=== PATIENT | male | born 1950 | race Caucasian/White ===

== ENCOUNTER 2023-10-12 10:11 | Outpatient (OUT) | payer MEDICARE, OTHER, SELFPAY ==
[2023-10-12 10:53] LABS: Basophils Percent Auto 0.6 % (0.2-2.0); Eosinophils Absolute Auto 0.1 10^3/uL (0.0-0.7); Eosinophils Percent Auto 1.4 % (0.9-7.0); Hemoglobin 13.3 g/dL (14.0-18.0); Immature Granulocytes Abs Auto 0.01 10^3/uL (0.00-0.03); Immature Granulocytes Pct Auto 0.2 % (0.0-0.5); Lymphocytes Absolute Auto 1.8 10^3/uL (1.2-3.8); Lymphocytes Percent Auto 36.2 % (20.5-60.0); Mean Corpuscular HGB Conc 33.3 g/dL (29.9-35.2); Mean Corpuscular Hemoglobin 28.3 pg (25.9-34.0); Mean Corpuscular Volume 85.1 fL (80.0-94.0); Mean Platelet Volume 8.7 fL (9.5-13.5); Monocytes Absolute Auto 0.4 10^3/uL (0.3-0.8); Monocytes Percent Auto 7.4 % (1.7-12.0); Neutrophils Absolute Auto 2.6 10^3/uL (1.4-6.5); Neutrophils Percent Auto 54.2 % (43.0-75.0); Platelet Count 251 10^3/uL (150-450); White Blood Count 4.8 10^3/uL (4.0-11.0)
[2023-10-12 11:08] LABS: Alanine Aminotransferase 34 U/L (16-63); Albumin Globulin Ratio 1.1; Albumin Level 3.9 g/dL (3.4-5.0); Alkaline Phosphatase 30 U/L (46-116); Anion Gap 9.3; Aspartate Amino Transferase 29 U/L (15-37); BUN Creatinine Ratio 15.1; Bilirubin Total 0.5 mg/dL (0.2-1.0); Calcium 9.6 mg/dL (8.5-10.1); Carbon Dioxide 25.8 mmol/L (21.0-32.0); Chloride 106 mmol/L (98-107); Cholesterol 170 mg/dL (<=200); Estimated GFR (African America 57 (>=60); Estimated GFR (Non-African Ame 47 (>=60); Globulin 3.4 g/dL; Glucose 98 mg/dL (74-106); HDL Cholesterol 34 mg/dL (40-60); Potassium 4.1 mmol/L (3.5-5.1); Sodium 137 mmol/L (136-145); Total Protein 7.3 g/dL (6.4-8.2); Triglycerides 166 mg/dL (<=150); VLDL CHOLESTEROL 33.2 mg/dL
[2023-10-12 11:45] LABS: Bilirubin Urine NEGATIVE (NEGATIVE); Blood Urine NEGATIVE (NEGATIVE); Clarity Urine CLEAR (CLEAR); Color Urine YELLOW (YELLOW); Glucose Urine UA NEGATIVE (NEGATIVE); Ketones Urine NEGATIVE (NEGATIVE); Leukocyte Esterase Urine NEGATIVE (NEGATIVE); Nitrite Urine NEGATIVE (NEGATIVE); Protein Urine NEGATIVE (NEG/TRACE); Specific Gravity Urine 1.015 (1.005-1.025); Urobilinogen Urine 0.2 EU/dL (0.2-1.0); pH Urine 5.5 (5.0-9.0)
[2023-10-12 11:52] LABS: Prostate Specific Antigen Scrn 3.63 ng/mL (<=4.00)
[2023-10-12 14:45] LABS: Estimated Average Glucose 111 mg/dL; Glycohemoglobin A1C 5.5 % (4.5-6.2)
== END 2023-10-12 10:12 | disposition home or self-care (01) ==
LOC: LAB 10:18
PROVIDERS: PCP Family Medicine; Visit Provider Family Medicine
DX: R35.0 Frequency of micturition (principal); I10 Essential (primary) hypertension; D64.9 Anemia, unspecified; Z12.5 Encounter for screening for malignant neoplasm of prostate; R73.03 Prediabetes; E78.5 Hyperlipidemia, unspecified
CPT/HCPCS: 36415; 80053; 80061; 81003; 83036; 85025; 87086; G0103

== ENCOUNTER 2024-05-07 10:48 | Outpatient (OUT) | payer MEDICARE, OTHER, SELFPAY ==
--- OUTSIDE RECORDS SUMMARY | 2024-05-07 11:04 | XMS_ITS | CCD ---
Author Organization [facility] Care Team Providers Care Airline Lounge Receptionist Name Role Phone DR TALIA PRIETO Admitting Unavailable PRIETO, DR TALIA Jaimes Attending Unavailable PRIETO, DR ATLIA Jaimes Primary Care Unavailable PRIETO, DR TALIA Jaimes Consulting Unavailable APLLATONIA FRENCH Admitting Unavailable APLLATONIA FRENCH Attending Unavailable CONNER, DR TALIA Jaimes Primary Care Unavailable ZIEBISIS, DR OANH Savage Consulting Unavailable APLINGLATONIA Consulting Unavailable PRIETO, DR TALIA Jaimes Admitting Unavailable PRIETO, DR TALIA Jaimes Attending Unavailable CONNER, DR TALIA Jaimes Referring Unavailable PRIETO, DR TALIA Jaimes Primary Care Unavailable PRIETO, DR TALIA Jaimes Consulting Unavailable Monica Horowitz Unavailable Talia Prieto Unavailable MD Talia Prieto Primary Care Provider [phone] MD Joe Portillo Attending Provider Joe Portillo Attending Unavailable Joe Portillo Admitting Unavailable Talia Prieto Primary Care Unavailable TALIA PRIETO Primary Care Physician [phone] GEOVANNA SANTAMARIA Attending Unavailab GEOVANNA Sung Admitting Unavailab GEOVANNA Sung Attending Unavailab TALIA Ordonez Referring Unavailable GEOVANNA SANTAMARIA Admitting Unavailab GEOVANNA Sung Attending UnavailKoffi Bailey Attending Unavailable Koffi GUNTER Referring Unavailable Koffi GUNTER Attending Unavailable Koffi GUNTER Admitting Unavailable Allergies Allergy Classification Reported Allergen(s) Allergy Type Date of Onset Reaction(s) Facility (7 sources) Sulfamethoxazole / Trimethoprim; Translations: [sulfamethoxazole-t rimethoprim] Drug Allergy Ear problem (finding) [facility] (2 sources) Sulfamethoxazole; Translations: [sulfamethoxazole] Drug Allergy 03-16-20 Unknown Reaction [facility] (2 sources) Trimethoprim; Translations: [trimethoprim] Drug Allergy 03-16-20 Unknown Reaction [facility] (2 sources) Allergies Reconciled Propensity to adverse reactions Unknown [employer] Other (2 sources) Sulfamethoxazole / Trimethoprim; Translations: [Bactrim] Drug Allergy [facility] Repository Medications Current Medications Medication Drug Class(es) Dates Sig (Normalized) Sig (Original) Cetirizine (4 sources) Histamine-1 Receptor Antagonist Start: 02-05-2024 cetirizine Start Date: 02/05/24 Status: Ordered Start: 09-11-2017 Cetirizine Act trinidad 10 MG PO As Directed September 11, 2017 1:00am diphenhydrAMINE (3 sources) Histamine-1 Receptor Antagonist [employer] Allergy Active dutasteride 0.5 mg oral capsule (1 source) 5-alpha Reductase Inhibitor Start: 03-11-20 take 1 capsule by mouth once daily dutasteride 0.5 mg Cap 0.5 mg = 1 cap(s), Oral, Daily, # 90 cap(s), Refills(s) 3, Pharmacy: [facility], 182, cm, 02/05/24 10:43:00 EDT, Height/Length Dosing, 102.5, kg, 02/05/24 10:43:00 EDT, Weight Dosing Start Date: 03/11/24 Status: Ordered fenofibrate 160 mg oral tablet (9 sources) Peroxisome Proliferator Receptor alpha Agonist Start: 09-11-19 fenofibrate 160 mg oral tablet Oral, 0 Refill(s), Refills(s) 0 Start Date: 09/11/17 Status: Ordered Fenofibrate Acti ve lisinopril 10 mg oral tablet (9 sources) Angiotensin Converting Enzyme Inhibitor Start: 09-11-2017 lisinopril 10 mg Tab Oral, 0 Refill(s), Refills(s) 0 Start Date: 09/11/17 Status: Ordered Start: 09-11-2017 take 20 mg by mouth once daily Lisinopril Active 20 MG PO Daily September 11, 2017 1:00am Lisinopril Activ e Multivitamin preparation (1 source) Start: 09-11-2017 take 1 tablet by mouth once daily Multivitamin Active 1 TAB PO Daily September 11, 2017 1:00am tamsulosin hydrochloride 0.4 mg oral capsule (5 sources) alpha-Adrenerg ic Christa Start: 03-11-2024 take 1 capsule by mouth twice daily tamsulosin 0.4 mg Cap 0.4 mg = 1 cap(s), Oral, BID, # 180 caplet(s), Refills(s) 3, Pharmacy: [facility], 182, cm, 02/05/24 10:43:00 EDT, Height/Length Dosing, 102.5, kg, 02/05/24 10:43:00 EDT, Weight Dosing Start Date: 03/11/24 Status: Ordered Start: 02-05-2024 tamsulosin 0.4 mg Cap 0.4 mg = 1 cap(s), Oral, Daily, 30 EA, 0 Refill(s), TAKE 1 CAPSULE BY MOUTH DAILY, # 30 cap(s), Refills(s) 11, Pharmacy: [facility], 182, cm, 02/05/24 10:43:00 EDT, Height/Length Dosing, 102.5, kg, 02/05/24 10:43:00 EDT, Weight Dosing Start Date: 02/05/24 Status: Ordered Start: 10-15-2023 take 1 capsule by [facility] every twenty-four hours Flomax 0.4 MG 1 capsule Orally Once a day for 30 day(s) Oct, Active Triglyceride (3 sources) Triglyceride Act trinidad Completed/Discontinued Medications Medication Drug Class(es) Dates Sig (Normalized) Sig (Original) ciprofloxacin 500 mg oral tablet (3 sources) Quinolone Antimicrobial Start: 02-05-2024 take 1 tablet by mouth once daily Cipro 500 mg Tab 500 mg = 1 tab(s), Oral, Daily, take one tab day before procedure and one tab after procedure, # 2 tab(s), Refills(s) 0, Pharmacy: [facility], 182, cm, 02/05/24 10:43:00 EDT, Height/Length Dosing, 102.5, kg, 02/05/24 10:43:00 EDT, Weight Dosing Start Date: 02/05/24 Status: Ordered Problems Active Problems Problem Classification Problem Date Documented Da te Episodic/Chronic Allergic reactions (4 sources) Contact dermatitis; Translations: [Contact dermatitis and other eczema, due to unspecified cause] Onset: 02-11-2014 Episodic Anxiety disorders (2 sources) Acute stress disorder; Translations: [Unspecified acute reaction to stress] Onset: 08-10-2014 Chronic Deficiency and other anemia (4 sources) Anemia, unspecified; Translations: [ANEMIA UNSPECIFIED] Onset: 04-17-2022 Episodic Deficiency and other anemia (2 sources) Anemia; Translations: [Anemia, unspecified] Episodic Disorders of lipid metabolism (8 sources) Pure hyperglyceridemia; Translations: [Pure hyperglyceridemia] Onset: 12-26-2013 Chronic Essential hypertension (8 sources) Essential (primary) hypertension; Translations: [Essential hypertension] Onset: 12-26-2013 01-31-2024 Chronic Genitourinary symptoms and ill-defined conditions (1 source) Increased frequency of urination; Translations: [Frequency of micturition] Onset: 02-05-2024 Episodic Glaucoma (2 sources) Glaucoma; Translations: [Unspecified glaucoma] Onset: 06-29-2017 Chronic Hyperplasia of prostate (4 sources) Benign prostatic hypertrophy with outflow obstruction; Translations: [Benign prostatic hyperplasia with lower urinary tract symptoms] Onset: 02-05-2024 Chronic Influenza (1 source) Influenza due to other identified influenza virus with other respiratory manifestations Episodic Joint disorders and dislocations; trauma-related (4 sources) Unspecified internal derangement of left knee; Translations: [UNS INTERNAL DERANGEMENT LEFT KNEE] Onset: 06-28-2021 Chronic Other diseases of kidney and ureters (1 source) Urinary tract obstruction; Translations: [Other obstructive and reflux uropathy] Onset: 03-11-2024 Episodic Other ear and sense organ disorders (2 sources) Sensorineural hearing loss, bilateral; Translations: [Sensorineural hearing loss, bilateral] Onset: 04-03-2018 Chronic Other gastrointestinal disorders (1 source) Occult blood in stools; Translations: [Other fecal abnormalities] 09-11-2017 Episodic Other nutritional; endocrine; and metabolic disorders (2 sources) Simple obesity ; Translations: [Other obesity due to excess calories] Onset: 04-03-2018 Chronic Other nutritional; endocrine; and metabolic disorders (4 sources) Obese class I; Translations: [Body mass index (BMI) 33.0-33.9, adult] Onset: 08-28-2017 Chronic Other nutritional; endocrine; and metabolic disorders (2 sources) Obesity; Translations: [Obesity, unspecified] Onset: 12-26-2013 Chronic Other screening for suspected conditions (not mental disorders or infectious disease) (2 sources) Encounter for screening for malignant neoplasm of prostate; Translations: [Screening for malignant neoplasm done] Onset: 02-16-2022 Episodic Other upper respiratory disease (2 sources) Seasonal allergic rhinitis; Translations: [Other seasonal allergic rhinitis] Onset: 12-26-2013 Chronic Unclassified (1 source) Encounter for screening for malignant neoplasm of colon; Translations: [Encounter for screening for malignant neoplasm of colon] Onset: 03-16-2023 Unclassified (3 sources) Patient encounter status 02-05-2024 Past or Other Problems Problem Classification Problem Date Documented Date Episodic/Chronic Diabetes mellitus without complication (6 sources) Prediabetes; Translations: [Prediabetes] Onset: 02-16-2022 01-31-2024 Episodic Disorders of teeth and jaw (2 sources) Temporomandibular joint disorder; Translations: [Other specified temporomandibular joint disorders] Onset: 05-07-2018 Episodic Other aftercare (2 sources) Long-term current use of drug therapy; Translations: [Other truck terminal manager (current) drug therapy] Onset: 02-04-2015 Episodic Other ear and sense organ disorders (2 sources) Acute otitis externa; Translations: [Other acute otitis externa] Onset: 04-03-2018 Episodic Other liver diseases (2 sources) Elevated levels of transaminase & lactic acid dehydrogenase; Translations: [Nonspecific elevation of levels of transaminase or lactic acid dehydrogenase (LDH)] Onset: 08-28-2017 Episodic Other upper respiratory infections (4 sources) Acute sinusitis; Translations: [Acute sinusitis, unspecified] Onset: 06-30-2014 Episodic Residual codes; unclassified (2 sources) Family history of malignant neoplasm of trachea, bronchus and lung; Translations: [Family history of malignant neoplasm of trachea, bronchus, and lung] Onset: 12-26-2013 Episodic Residual codes; unclassified (2 sources) Family history of diabetes mellitus; Translations: [Family history of diabetes mellitus] Onset: 12-26-2013 Episodic Unclassified (1 source) Cough R05.9 Results Test Name Value Interpretation Reference Range Facility Main OR Intraoperative Recor don 03-11-2024 Main OR Intraoperative Record Main OR Intraoperative Record IntraOp Document Type FTURO Summary Primary Physician: Koffi GUNTER MD Finalized Date/Time: 03/11/24 15:56:06 Pt. Name: HAIDER BLEDSOE Maynor Barlow/Sex: 1950 Male Med Rec #: [id number] Physician: Koffi GUNTER MD Financial #: [id number] Pt. Type: O Room/Bed: / Admit/Disch: 03/11/24 14:44:13 - Institution: Case Times FTURO Entry 1 Patient Times In Room 03/11/24 15:45:00 Out Room 03/11/24 15:54:00 Procedure Times Start 03/11/24 15:49:00 Stop 03/11/24 15:53:00 Anesthesia Times Last Modified By: Eliza Andrade 03/11/24 15:54:34 Case Attendance FTURO Entry 1 Entry 2 Entry 3 Case Attendee Koffi GUNTER MD, Kendall R Burgderfer, Kelsie E Role Performed Surgeon - Primary Scrub - Primary Pan Dumper - Primary Time In 03/11/24 15:45:00 03/11/24 15:45:00 03/11/24 15:45:00 Time Out 03/11/24 15:54:00 03/11/24 15:54:00 03/11/24 15:54:00 Procedure CYSTOSCOPY LOCAL(.) CYSTOSCOPY LOCAL(.) CYSTOSCOPY LOCAL(.) Comments Last Modified By: Eliza Andrade Kelsie E Burgderfer, Kelsie E 03/11/24 15:54:34 03/11/24 15:54:34 03/11/24 15:54:46 Surgical Procedures FTURO Entry 1 Procedure Description Procedure CYSTOSCOPY LOCAL Modifiers . Surgeon Description CYSTOSCOPY LOCAL Primary Procedure Yes Primary Surgeon Koffi GUNTER MD Start 03/11/24 15:49:00 Stop 03/11/24 15:53:00 Anesthesia Type Local Surgical Service Urology Wound Class 2 - Clean-Contaminated Last Modified By: Eliza Andrade 03/11/24 15:54:36 General Case Data FTURO Pre-Care Text: Classifies surgical wound, implements aseptic technique, initiates traffic control Entry 1 Case Information OR URO 1 FT Case Level None Wound Class 2 - Clean-Contaminated Specialty Urology Preop Diagnosis BPH WITH LUTS FREQUENCY Postop Same As Preop Yes Postop Diagnosis BPH WITH LUTS FREQUENCY Outcomes Met? Yes Last Modified By: Eliza Andrade 03/11/24 15:40:52 Post-Care Text: The patient is free from signs and symptoms of infection EU IntraOp - FTURO Pre-Care Text: Implements protective measures prior to operative or invasive procedure, confirms identity before the operative or invasive procedure, verifies operative procedure, surgical site, and laterality Entry 1 EU Perioperative Protocols Procedure(s) CYSTOSCOPY LOCAL(.) Patient Identity Birthday, ID Band Verified (select at Check, Patient least 2): Participation Consents / H and P HandP, Surgery/Procedure Operative Site N/A Verified Consent Marking Verified Surgical Site Yes Laterality Verified n/a Verified Procedure Verified Yes Correct Patient Yes Position Verified Availability Equipment, Medication Time Out JANI ARREDONDO, Koffi Savage, Verified (If Participants Shahram Edwards, Applicable) Eliza Andrade Time Out Complete 03/11/24 15:47:00 Allergies Reviewed? Yes Allergies Reviewed Self/Patient With Body Position Supine Prep Area PENIS Prep Agents Betadine Solution Skin. Condition Unable to Visualize Description N/A Additional None Specimens Comment N/A Specimens Collected Vitals - EU Blood Pressure 155/86 Pulse 87 bpm Respirations 14 br/min SPO2 99 % EBL 0 IandO - EU Total Intake 0 mL Total Output 0 mL Outcomes Met? Yes Last Modified By: Eliza Andrade 03/11/24 15:47:20 Post-Care Text: The patient is free from signs and symptoms of injury caused by extraneous objects Sign Out FTURO Entry 1 Before Patient Leaves OR Nurse verbally Yes Nurse verbally n/a confirms with the confirms with the team the name of team that the procedure(s) instrument, sponge, recorded and needle counts are correct (or N/A) Nurse verbally n/a Nurse verbally Yes confirms with the confirms with the team how the team whether there specimen is labeled are any equipment (including patient problems to be name), if applicable addressed Sign Out Complete 03/11/24 15:53:00 Last Modified By: Eliza Andrade 03/11/24 15:53:09 Case Comments Finalized By: Eliza Andrade Document Signatures Signed By: Eliza Andrade 03/11/24 15:54 Eliza Andrade 03/11/24 15:54 Eliza Andrade 03/11/24 15:56 Normal [facility] Main OR Preoperative Recordo n 03-11-2024 Main OR Preoperative Record Main OR Preoperative Record Holding Area Document Type FTURO Summary Primary Physician: Koffi GUNTER MD Finalized Date/Time: 03/11/24 15:26:16 Pt. Name: RAKAN HAIDER Barlow/Sex: 1950 Male Med Rec #: [id number] Physician: Koffi GUNTER MD Financial #: [id number] Pt. Type: O Room/Bed: / Admit/Disch: 03/11/24 14:44:13 - Institution: Case Times Holding FTURO Pre-Care Text: Verifies consent for planned procedure, identifies individual values and wishes concerning care, includes family members in perioperative teaching Secures patient's records' belongings, and valuables, maintains patient's dignity and privacy, and maintains patient confidentiality Entry 1 In Holding 03/11/24 15:19:00 Outcomes Met? Yes Last Modified By: MARCELINA Richards RN, Ruthann 03/11/24 15:19:41 Post-Care Text: The patient participates in decisions affecting his or her perioperative plan of care The patient's right to privacy is maintained Surgery Checklist FTURO Entry 1 Patient Birthday, ID Band Procedure History and Physical, Identification: Check, Patient Verification: Surgical Consent, With Participation Patient NPO after Midnight: n/a Date/Time: 03/11/24 15:19:00 Personal Items clothes Limitations: none Comment: Complaints of Pain: No Skin Integrity Unable to Visualize Vitals - EU Blood Pressure 155/86 Pulse 87 bpm Respirations 14 br/min SPO2 Additional None RN Reviewed Yes Specimens Collected Last Modified By: MARCELINA Richards RN, Ruthann 03/11/24 15:23:11 Finalized By: MARCELINA Richards RN, Ruthann Document Signatures Signed By: MARCELINA Richards RN, Ruthann 03/11/24 15:23 MARCELINA Richards RN, Ruthann 03/11/24 15:26 Normal [facility] Operative Reporton Operative Report Operative Report Patient: HAIDER BLEDSOE Age: 73 years Sex: Male : 1950 Associated Diagnoses: None Author: Koffi GUNTER MD Procedure Operative Information Details: Date/ Time: 03/11/2024 15:57:00. Pre-Op Dx: BPH w/ LUTS - N40.1, Frequency - R35.0, Nocturia - R35.1, Incomplete Bladder Emptying - R39.14. Post-Op Dx: Same. Anesthesia Type: Local. Procedure: Local Cystoscopy. Complications: None. Risks/Benefits/Inform ed Consent: Surgical risks, benefits, details of the procedure have been explained to the patient, Full informed consent has been obtained. Intraoperative Information Prepped: Patient is brought back to the endoscopy suite, Patient is placed in supine position, Patient prepped in the usual fashion with Betadine solution, 2% Xylocaine Jelly is placed per Urethra, After waiting several minutes the Cystoscope is introduced. The Urethra is: Normal. The Prostatic Urethra is: Obstructed, Obstructing coapting lateral lobes.. The Bladder is: Abnormal, Trabeculated (Severe (3), Open diverticuli diffusely. No bladder tumors.). The ureteral orifices: Show efflux of clear urine. Devices Implanted: None. Removal: Cystoscope is removed, The patient tolerated it well. Postoperative Information Discharge: Patient is discharged home with antibiotic coverage, Follow up arranged. He will increase his Flomax to twice daily. Also, we will start dutasteride 0.5 mg daily. Follow-up will be in 4 months for reevaluation.. Normal [facility] Comment on above: Result Comment: Elec tronically Signed By: Koffi GUNTER MD\.br\Date and Time Signed: 03/11/24 15:58 EDT PSA Totalon 02-07-2024 Prostate specific Ag [Mass/Vol] see comment Invalid Interpretation Code 0.1-3.5 [facility] Comment on above: Result Comment: Per Farzana Disla, specimen was incorrectly labeled at [facility] office with patient label Haider Bledsoe. The correct patient is Diony Nguyễn. Diony Nguyễn will be redrawn and re-ordered at a different time. Rakan will be creditied by LARRY 02/07/2024 15:21:21 EDT dc The concentration of PSA determined by different manufacturers can vary due to differences in assay methods and reagent specificity. Values obtained from different assay methods cannot be used interchangeably. The methodology used for this result was chemiluminescence using [employer] Hybritech PSA reagent. The concentration of PSA determined by different manufacturers can vary due to differences in assay methods and reagent specificity. Values obtained from different assay methods cannot be used interchangeably. The methodology used for this result was chemiluminescence using [employer] Access Hybritech PSA reagent. Performed By: #### 1 [id number] #### [facility] [address] [place] [address] PSA Totalon 02-06-2024 Prostate specific Ag [Mass/Vol] 6.6 ng/mL High 0.1-3.5 [facility] Comment on above: Result Comment: The concentration of PSA determined by different manufacturers can vary due to differences in assay methods and reagent specificity. Values obtained from different assay methods cannot be used interchangeably. The methodology used for this result was chemiluminescence using [employer] Access Hybritech PSA reagent. Performed By: #### 1 [id number] #### [facility] [address] [place] [address] Physician Referralon 024 Physician Referral [id number] 1.00TIFF Normal [facility] Screenson 02-06-2024 Screens [id number] .00TIFF Normal [facility] Ambulatory Visit Summaryon 0 02-05-2024 Ambulatory Visit Summary HAIDER BLEDSOE :1950 Visit Date:02/05/2024 Ambulatory Visit Instructions Your Diagnosis Urinary frequency BPH with obstruction/lower urinary tract symptoms Screening PSA (prostate specific antigen) Your Care Team Attending Physician - FATOU SANTAMARIA PA-C Primary Care Physician - TALIA PRIETO MD Referring Physician - TALIA PRIETO MD This Is Your Medications List cetirizine tamsulosin (tamsulosin 0.4 mg Cap) Contact prescribing physician if questions or concerns fenofibrate (fenofibrate 160 mg oral tablet) lisinopril (lisinopril 10 mg Tab) Procedures Performed Colonoscopy. Discharge Vitals Heart Rate (Peripheral) 80 Respiratory Rate 19 Blood Pressure 150/76 Height 182 cm Height 72 in Weight 102.5 kg Weight 225.5 lb BMI 30.94 What to do next You Need to Schedule the Following Appointments Follow Up with FATOU SANTAMARIA PA-C, URL When: Where: [address] [facility] [place] [address] [id number] Medications What When Instructions Unchanged cetirizine Unchanged tamsulosin (tamsulosin 0.4 mg Cap) 30 EA, 0 Refill(s), TAKE 1 CAPSULE BY MOUTH DAILY Unchanged fenofibrate (fenofibrate 160 mg oral tablet) Oral, 0 Refill(s) Contact prescribing physician if questions or concerns Unchanged lisinopril (lisinopril 10 mg Tab) Oral, 0 Refill(s) Contact prescribing physician if questions or concerns Allergies Bactrim (Ear problem) Problems Ongoing - Any problem that you are currently receiving treatment for. BPH with obstruction/lower urinary tract symptoms Essential hypertension Prediabetes Screening PSA (prostate specific antigen) Patient Survey You may receive a survey via text or e-mail asking about your office visit. Please share your experience with us by completing your survey. We appreciate your feedback and thank you for choosing us for your care. Education Materials Cystoscopy Cystoscopy is a procedure that is used to help diagnose and sometimes treat conditions that affect the lower urinary tract. The lower urinary tract includes the bladder and the urethra. The urethra is the tube that drains urine from the bladder. Cystoscopy is done using a thin, tube-shaped instrument with a light and camera at the end (cystoscope). The cystoscope may be hard or flexible, depending on the goal of the procedure. The cystoscope is inserted through the urethra, into the bladder. Cystoscopy may be recommended if you have: ? Urinary tract infections that keep coming back. ? Blood in the urine (hematuria). ? An inability to control when you urinate (urinary incontinence) or an overactive bladder. ? Unusual cells found in a urine sample. ? A blockage in the urethra, such as a urinary stone. ? Painful urination. ? An abnormality in the bladder found during an intravenous pyelogram (IVP) or CT scan. Cystoscopy may also be done to remove a sample of tissue to be examined under a microscope (biopsy). Tell a health care provider about: ? Any allergies you have. ? All medicines you are taking, including vitamins, herbs, eye drops, creams, and evyg-jnm-sibcwug medicines. ? Any problems you or family members have had with anesthetic medicines. ? Any blood disorders you have. ? Any surgeries you have had. ? Any medical conditions you have. ? Whether you are or may be . What are the risks? Generally, this is a safe procedure. However, problems may occur, including: ? Infection. ? Bleeding. ? Allergic reactions to medicines. ? Damage to other structures or organs. What happens before the procedure? Medicines Ask your health care provider about: ? Changing or stopping your regular medicines. This is especially important if you are taking diabetes medicines or blood thinners. ? Taking medicines such as aspirin and ibuprofen. These medicines can thin your blood. Do not take these medicines unless your health care provider tells you to take them. ? Taking mnfk-utb-kwlwrgy medicines, vitamins, herbs, and supplements. Tests You may have an exam or testing, such as: ? X-rays of the bladder, urethra, or kidneys. ? CT scan of the abdomen or pelvis. ? Urine tests to check for signs of infection. General instructions ? Follow instructions from your health care provider about eating or drinking restrictions. ? Ask your health care provider what steps will be taken to help prevent infection. These steps may include: ? Washing skin with a germ-killing soap. ? Taking antibiotic medicine. ? Plan to have a responsible adult take you home from the hospital or clinic. What happens during the procedure? ? You will be given one or more of the following: ? A medicine to help you relax (sedative). ? A medicine to numb the area (local anesthetic). ? The area around the opening of your urethra will b (more content not included)... Normal [facility] CHEMISTRYOrdered By: SYSTEM SYSTEM on 02-05-2024 Prostate specific Ag [Mass/Vol] 6.6 ng/mL High 0.1 - 3.5 ng/mL [employer] Comment on above: Interpretive Data: T he concentration of PSA determined by different manufacturers can vary due to differences in assay methods and reagent specificity. Values obtained from different assay methods cannot be used interchangeably. The methodology used for this result was chemiluminescence using [employer]'s Access Hybritech PSA reagent. Jacek 03-16-2023 L - -------- Specimen: [id number] Received: 03/16/23 Status: GINETTE Hamilton Num: [id number] Spec Type: Surgical Subm Dr: Joe Portillo MD Tissues: A Colon Biopsy (DESC COL POLYP) Procedures: MARCO ANTONIO/Wilfrido Moreira/Kasey L4 -------- Age/ Patient Sex Location Account Attending Physician -------- Haider Bledsoe 72/M [id number] Joe Portillo MD -------- SPEC NUM: [id number] RECD: 03/16/23 STATUS: GINETTE JOHNTyesha NUM: [id number] JAKY: 03/16/23 [facility] DR: Joe Portillo MD ENTERED: 03/16/[address] [facility] [address]: SPEC TYPE: Surgical DEPT: S ENTERED BY: [id number] RECV BY: [id number] ORDERED: HE/2, Gross/Micro L4 ORDERED: HE/2, Gross/Micro L4 Pathological Diagnosis Colon, descending, polyp, biopsy: - Colonic mucosa with focal hyperplastic features. Clinical Information History of colon polyps Gross Description Received in formalin labeled with the patient's name, date of and descending colon polyp is one becerra tissue measuring 0.4 x 0.3 x 0.2 cm. Entirely submitted in one cassette labeled A1. Microscopic Description Two H E slides reviewed. The microscopic examination confirms the diagnosis. CPT Codes 39570 -------- -------- Specimen: [id number] Received: 03/16/23 Status: GINETTE Alfonso Num: [id number] Spec Type: Surgical Subm Dr: Joe Portillo MD Tissues: A Colon Biopsy (DESC COL POLYP) Procedures: HE/2, Gross/Micro L4 -------- Patient: Haider Bledsoe [id number] (Continued) -------- Signed (signature on file) Diony Triplett MD 03/19/23 0936 [facility] COVID + FLU Quick Testingon 08-19-2022 SARS-CoV-2 (COVID-19) RNA MELANIA+probe Ql (Unsp spec) Negative [facility] Other COVID + FLU Quick Testing Positive [facility] Other COVID + FLU Quick Testing Negative [facility] Other CBC AUTO DIFFon 04-17-2022 BASO # 0.0 103/ul Normal 0.0-0.1 [facility] Comment on above: Performed By: #### C BC #### [facility] [address] [address] [address] Orlin Kellogg Basophils/100 WBC (Bld) 0.6 % Normal 0.2-2.0 [facility] Comment on above: Performed By: #### C BC #### [facility] [address] [place], [place] [address] Dr. Orlin Kellogg EO # 0.1 103/ul Normal 0.0-0.7 [facility] Comment on above: Performed By: #### C BC #### [facility] [address] [place] [address] Dr. Orlin Kellogg Eosinophils/100 WBC (Bld) 1.8 % Normal 0.9-7.0 [facility] Comment on above: Performed By: #### C BC #### [facility] [address] [place] [address] Dr. Orlin Kellogg Erythrocyte distribution width (RBC) [Ratio] 13.1 % Normal 11.0-15.0 [facility] Comment on above: Performed By: #### C BC #### [facility] [address] [place] [address] Dr. Orlin Kellogg Hematocrit (Bld) [Volume fraction] 42.2 % Normal 42.0-54.0 [facility] Comment on above: Performed By: #### C BC #### [facility] [address] [place] [address] Dr. Orlin Kellogg Hemoglobin (Bld) [Mass/Vol] 13.9 g/dL Critically low 14.0-18.0 [facility] Comment on above: Performed By: #### C BC #### [facility] [address] [place] [address] Dr. Orlin Kellogg IG # 0.02 10e3/ul Normal 0.00-0.03 [facility] Comment on above: Performed By: #### C BC #### [facility] [address] [place] [address] Dr. Orlin Kellogg IG % 0.4 % Normal 0.0-0.5 [facility] Comment on above: Performed By: #### C BC #### [facility] [address] [place] [address] Dr. Orlin Kellogg LYMPH # 1.6 103/ul Normal 1.2-3.8 [facility] Comment on above: Performed By: #### C BC #### [facility] [address] [place] [address] Dr. Orlin Kellogg Lymphocytes/100 WBC (Bld) 31.6 % Normal 20.5-60.0 [facility] Comment on above: Performed By: #### C BC #### [facility] [address] [place] [address] Dr. Orlin Kellogg MANUAL DIFF REQ NO Normal [facility] Comment on above: Performed By: #### C BC #### [facility] [address] [place] [address] Dr. Orlin Kellogg MCH (RBC) [Entitic mass] 27.7 pg Normal 25.9-34.0 [facility] Comment on above: Performed By: #### C BC #### [facility] [address] [place] [address] Dr. Orlin Kellogg MCHC (RBC) [Mass/Vol] 32.9 g/dL Normal 29.9-35.2 [facility] Comment on above: Performed By: #### C BC #### [facility] [address] [place] [address] Dr. Orlin Kellogg MCV (RBC) [Entitic vol] 84.2 fL Normal 80.0-94.0 [facility] Comment on above: Performed By: #### C BC #### [facility] [address] [place] [address] Dr. Orlin Kellogg MONO # 0.3 103/ul Normal 0.3-0.8 [facility] Comment on above: Performed By: #### C BC #### [facility] [address] [place] [address] Dr. Orlin Kellogg Monocytes/100 WBC (Bld) 5.7 % Normal 1.7-12.0 [facility] Comment on above: Performed By: #### C BC #### [facility] [address] [place] [address] Dr. Orlin Kellogg NEUT # 3.0 103/ul Normal 1.4-6.5 [facility] Comment on above: Performed By: #### C BC #### [facility] [address] [place] [address] Dr. Orlin Kellogg Neutrophils/100 WBC (Bld) 59.9 % Normal 43.0-75.0 [facility] Comment on above: Performed By: #### C BC #### [facility] [address] [place] [address] Dr. Orlin Kellogg Platelet mean volume (Bld) [Entitic vol] 8.4 fL Critically low 9.5-13.5 [facility] Comment on above: Performed By: #### C BC #### [facility] [address] [place] [address] Dr. Orlin Kellogg PLT 278 103/ul Normal 150-450 [facility] Comment on above: Performed By: #### C BC #### [facility] [address] [place] [address] Dr. Orlin Kellogg RBC 5.01 106/ul Normal 4.70-6.10 [facility] Comment on above: Performed By: #### C BC #### [facility] [address] [place] [address] Dr. Orlin Kellogg WBC 4.9 103/ul Normal 4.0-11.0 [facility] Comment on above: Performed By: #### C BC #### [facility] [address] [place] [address] Dr. Orlin Kellogg FERRITINon 04-17-2022 Ferritin [Mass/Vol] 304.0 ng/mL Normal 26.0-388.0 [facility] Comment on above: Performed By: #### V ITB12, FERR #### [facility] [address] [place] [address] Dr. Orlin Kellogg PROF 14(COMP METB)on 022 Albumin [Mass/Vol] 4.4 g/dL Normal 3.4-5.0 [facility] Comment on above: Performed By: #### C MP #### [facility] [address] [place] [address] Dr. Orlin Kellogg Albumin/Globulin [Mass ratio] 1.4 {ratio} Normal [facility] Comment on above: Performed By: #### C MP #### [facility] [address] [place] [address] Dr. Orlin Kellogg ALP [Catalytic activity/Vol] 33 U/L Critically low 46-116 [facility] Comment on above: Performed By: #### C MP #### [facility] [address] [address] [address] Orlin Kellogg ALT [Catalytic activity/Vol] 50 U/L Normal 16-63 [facility] Comment on above: Performed By: #### C MP #### [facility] [address] [address] [address] Orlin Kellogg Anion gap [Moles/Vol] 16.9 mmol/L Normal [facility] Comment on above: Performed By: #### C MP #### [facility] [address] [address] [address] Orlin Kellogg AST [Catalytic activity/Vol] 33 U/L Normal 15-37 [facility] Comment on above: Performed By: #### C MP #### [facility] [address] [place] [address] Dr. Orlin Kellogg Bilirubin [Mass/Vol] 0.3 mg/dL Normal 0.2-1.0 [facility] Comment on above: Performed By: #### C MP #### [facility] [address] [address] [address] Orlin Kellogg Calcium [Mass/Vol] 10.2 mg/dL Critically high 8.5-10.1 [facility] Comment on above: Performed By: #### C MP #### [facility] [address] [place] [address] Dr. Orlin Kellogg Chloride [Moles/Vol] 105 mmol/L Normal 98-107 [facility] Comment on above: Performed By: #### C MP #### [facility] [address] [address] [address] Orlin Kellogg CO2 [Moles/Vol] 22.7 mmol/L Normal 21.0-32.0 [facility] Comment on above: Performed By: #### C MP #### [facility] [address] [place] [address] Dr. Orlin Kellogg Creatinine [Mass/Vol] 1.40 mg/dL Critically high 0.70-1.30 [facility] Comment on above: Performed By: #### C MP #### [facility] [address] [address] [address] Orlin Kellogg EGFR-AF AFGHAN 60 mL/min/1.73m2 Normal >=60 [facility] Comment on above: Performed By: #### C MP #### [facility] [address] [address] [address] Orlin Kellogg EGFR-NON AF AFGHAN 50 mL/min/1.73m2 Critically low >=60 [facility] Comment on above: Performed By: #### C MP #### [facility] [address] [address] [address] Orlin Kellogg Globulin (S) [Mass/Vol] 3.1 g/dL Normal [facility] Comment on above: Performed By: #### C MP #### [facility] [address] [address] [address] Orlin Kellogg Glucose [Mass/Vol] 100 mg/dL Normal 74-106 [facility] Comment on above: Performed By: #### C MP #### [facility] [address] [address] [address] Orlin Kellogg Potassium [Moles/Vol] 4.6 mmol/L Normal 3.5-5.1 [facility] Comment on above: Performed By: #### C MP #### [facility] [address] [address] [address] Orlin Kellogg Protein [Mass/Vol] 7.5 g/dL Normal 6.4-8.2 [facility] Comment on above: Performed By: #### C MP #### [facility] [address] [address] [address] Orlin Kellogg Sodium [Moles/Vol] 140 mmol/L Normal 136-145 [facility] Comment on above: Performed By: #### C MP #### [facility] [address] [address] [address] Orlin Kellogg Urea nitrogen [Mass/Vol] 26.0 mg/dL Critically high 7.0-18.0 [facility] Comment on above: Performed By: #### C MP #### [facility] [address] [place] [address] Dr. Orlin Kellogg Urea nitrogen/Creatinine [Mass ratio] 18.6 mg/mg Normal [facility] Comment on above: Performed By: #### C MP #### [facility] [address] [place] [address] Dr. Orlin Kellogg VITAMIN B12on 04-17-2022 Cobalamin (Vitamin B12) [Mass/Vol] 697.0 pg/mL Normal 193.0-986.0 [facility] Comment on above: Performed By: #### V ITB12, FERR #### [facility] [address] [place] [address] Dr. Orlin Kellogg CBC AUTO DIFFon 02-10-2022 BASO # 0.0 103/ul Normal 0.0-0.1 [facility] Comment on above: Performed By: #### C BC #### [facility] [address] [place] [address] Dr. Orlin Kellogg Basophils/100 WBC (Bld) 0.5 % Normal 0.2-2.0 [facility] Comment on above: Performed By: #### C BC #### [facility] [address] [place] [address] Dr. Orlin Kellogg EO # 0.1 103/ul Normal 0.0-0.7 [facility] Comment on above: Performed By: #### C BC #### [facility] [address] [place] [address] Dr. Orlin Kellogg Eosinophils/100 WBC (Bld) 2.4 % Normal 0.9-7.0 [facility] Comment on above: Performed By: #### C BC #### [facility] [address] [place] [address] Dr. Orlin Kellogg Erythrocyte distribution width (RBC) [Ratio] 13.4 % Normal 11.0-15.0 [facility] Comment on above: Performed By: #### C BC #### [facility] [address] [place] [address] Dr. Orlin Kellogg Hematocrit (Bld) [Volume fraction] 41.0 % Critically low 42.0-54.0 [facility] Comment on above: Performed By: #### C BC #### [facility] [address] [address] [address] Orlin Kellogg Hemoglobin (Bld) [Mass/Vol] 13.8 g/dL Critically low 14.0-18.0 [facility] Comment on above: Performed By: #### C BC #### [facility] [address] [address] [address] Orlin Kellogg IG # 0.01 10e3/ul Normal 0.00-0.03 [facility] Comment on above: Performed By: #### C BC #### [facility] [address] [place] [address] Dr. Orlin Kellogg IG % 0.3 % Normal 0.0-0.5 [facility] Comment on above: Performed By: #### C BC #### [facility] [address] [place] [address] Dr. Orlin Kellogg LYMPH # 1.3 103/ul Normal 1.2-3.8 [facility] Comment on above: Performed By: #### C BC #### [facility] [address] [place] [address] Dr. Orlin Kellogg Lymphocytes/100 WBC (Bld) 35.3 % Normal 20.5-60.0 [facility] Comment on above: Performed By: #### C BC #### [facility] [address] [place] [address] Dr. Orlin Kellogg MANUAL DIFF REQ NO Normal [facility] Comment on above: Performed By: #### C BC #### [facility] [address] [place] [address] Dr. Orlin Kellogg MCH (RBC) [Entitic mass] 28.3 pg Normal 25.9-34.0 [facility] Comment on above: Performed By: #### C BC #### [facility] [address] [place] [address] Dr. Orlin Kellogg MCHC (RBC) [Mass/Vol] 33.7 g/dL Normal 29.9-35.2 [facility] Comment on above: Performed By: #### C BC #### [facility] [address] [address] [address] Orlin Kellogg MCV (RBC) [Entitic vol] 84.0 fL Normal 80.0-94.0 [facility] Comment on above: Performed By: #### C BC #### [facility] [address] [address] [address] Orlin Kellogg MONO # 0.3 103/ul Normal 0.3-0.8 [facility] Comment on above: Performed By: #### C BC #### [facility] [address] [address] [address] Orlin Kellogg Monocytes/100 WBC (Bld) 9.2 % Normal 1.7-12.0 [facility] Comment on above: Performed By: #### C BC #### [facility] [address] [place] [address] Dr. Orlin Kellogg NEUT # 1.9 103/ul Normal 1.4-6.5 [facility] Comment on above: Performed By: #### C BC #### [facility] [address] [place] [address] Dr. Orlin Kellogg Neutrophils/100 WBC (Bld) 52.3 % Normal 43.0-75.0 [facility] Comment on above: Performed By: #### C BC #### [facility] [address] [place] [address] Dr. Orlin Kellogg Platelet mean volume (Bld) [Entitic vol] 8.2 fL Critically low 9.5-13.5 [facility] Comment on above: Performed By: #### C BC #### [facility] [address] [place] [address] Dr. Orlin Kellogg PLT 224 103/ul Normal 150-450 [facility] Comment on above: Performed By: #### C BC #### [facility] [address] [place] [address] Dr. Orlin Kellogg RBC 4.88 106/ul Normal 4.70-6.10 [facility] Comment on above: Performed By: #### C BC #### [facility] [address] [address] [address] Orlin Kellogg WBC 3.7 103/ul Critically low 4.0-11.0 [facility] Comment on above: Performed By: #### C BC #### [facility] [address] [address] [address] Orlin Kellogg GLYCOHEMOGLOBIN A1Con 2021 ADA RECOMMENDATION SEE BELOW Normal [facility] Comment on above: Result Comment: ADA RECOMMENDED LIMIT 4.0 - 6.0 ADA THERAPEUTIC TARGET < 7.0 ACTION SUGGESTED > 7.0 Performed By: #### A 1C #### [facility] [address] [address] [address] Orlin Kellogg Glucose [Mass/Vol] 114 mg/dL Normal [facility] Comment on above: Performed By: #### A 1C #### [facility] [address] [place] [address] Dr. Orlin Kellogg HbA1c (Bld) [Mass fraction] 5.6 % Normal 4.5-6.2 [facility] Comment on above: Performed By: #### A 1C #### [facility] [address] [place] [address] Dr. Orlin Kellogg LIPID PROFILEon 02-10-2022 CHOL-HDL RATIO NORM SEE BELOW Normal [facility] Comment on above: Result Comment: 3.3 - 4.4 LOW RISK 4.4 - 7.1 AVERAGE RISK 7.1 - 11.0 MODERATE RISK >11.0 HIGH RISK Performed By: #### L IPID, CMP #### [facility] [address] [place] [address] Dr. Orlin Kellogg Cholesterol [Mass/Vol] 191 mg/dL Normal <=200 [facility] Comment on above: Performed By: #### L IPID, CMP #### [facility] [address] [place] [address] Dr. Orlin Kellogg Cholesterol in HDL [Mass/Vol] 28 mg/dL Critically low 40-60 [facility] Comment on above: Performed By: #### L IPID, CMP #### [facility] [address] [place] [address] Dr. Orlin Kellogg Cholesterol in LDL [Mass/Vol] 112.0 mg/dL Normal [facility] Comment on above: Performed By: #### L IPID, CMP #### [facility] [address] [address] [address] Orlin Kellogg Cholesterol.total/Ch olesterol in HDL [Mass ratio] 6.8 {ratio} Normal [facility] Comment on above: Performed By: #### L IPID, CMP #### [facility] [address] [address] [address] Orlin Kellogg HDL NORMAL > or = 60 mg/dl - LO W CARDIOVASCULAR RISK <40 mg/dl - HIGH CARDIOVASCULAR RISK Normal [facility] Comment on above: Performed By: #### L IPID, CMP #### [facility] [address] [place] [address] Dr. Orlin Kellogg LDL CALC NORMAL SEE BELOW Normal [facility] Comment on above: Result Comment: <100 mg/dl OPTIMAL 100 - 129 mg/dl NEAR OR ABOVE OPTIMAL 130 - 159 mg/dl BORDERLINE HIGH 160 - 189 mg/dl HIGH >190 mg/dl VERY HIGH Performed By: #### L IPID, CMP #### [facility] [address] [place] [address] Dr. Orlin Kellogg Triglyceride [Mass/Vol] 255 mg/dL Critically high <=150 [facility] Comment on above: Performed By: #### L IPID, CMP #### [facility] [address] [place] [address] Dr. Orlin Kellogg VLDL CALC 51.0 mg/dL Normal [facility] Comment on above: Performed By: #### L IPID, CMP #### [facility] [address] [address] [address] Orlin Kellogg PROF 14(COMP METB)on 022 Albumin [Mass/Vol] 4.2 g/dL Normal 3.4-5.0 [facility] Comment on above: Performed By: #### L IPID, CMP #### [facility] [address] [place] [address] Dr. Orlin Kellogg Albumin/Globulin [Mass ratio] 1.2 {ratio} Normal [facility] Comment on above: Performed By: #### L IPID, CMP #### [facility] [address] [place] [address] Dr. Orlin Kellogg ALP [Catalytic activity/Vol] 32 U/L Critically low 46-116 [facility] Comment on above: Performed By: #### L IPID, CMP #### [facility] [address] [address] [address] Orlin Kellogg ALT [Catalytic activity/Vol] 91 U/L Critically high 16-63 [facility] Comment on above: Performed By: #### L IPID, CMP #### [facility] [address] [place] [address] Dr. Orlin Kellogg Anion gap [Moles/Vol] 13.7 mmol/L Normal [facility] Comment on above: Performed By: #### L IPID, CMP #### [facility] [address] [place] [address] Dr. Orlin Kellogg AST [Catalytic activity/Vol] 61 U/L Critically high 15-37 [facility] Comment on above: Performed By: #### L IPID, CMP #### [facility] [address] [place] [address] Dr. Orlin Kellogg Bilirubin [Mass/Vol] 0.5 mg/dL Normal 0.2-1.0 [facility] Comment on above: Performed By: #### L IPID, CMP #### [facility] [address] [place] [address] Dr. Orlin Kellogg Calcium [Mass/Vol] 10.1 mg/dL Normal 8.5-10.1 [facility] Comment on above: Performed By: #### L IPID, CMP #### [facility] [address] [place] [address] Dr. Orlin Kellogg Chloride [Moles/Vol] 105 mmol/L Normal 98-107 [facility] Comment on above: Performed By: #### L IPID, CMP #### [facility] [address] [place] [address] Dr. Orlin Kellogg CO2 [Moles/Vol] 28.0 mmol/L Normal 21.0-32.0 [facility] Comment on above: Performed By: #### L IPID, CMP #### [facility] [address] [address] [address] Orlin Kellogg Creatinine [Mass/Vol] 1.44 mg/dL Critically high 0.70-1.30 [facility] Comment on above: Performed By: #### L IPID, CMP #### [facility] [address] [address] [address] Orlin Kellogg EGFR-AF AFGHAN 58 mL/min/1.73m2 Critically low >=60 [facility] Comment on above: Performed By: #### L IPID, CMP #### [facility] [address] [place] [address] Dr. Orlin Kellogg EGFR-NON AF AFGHAN 48 mL/min/1.73m2 Critically low >=60 [facility] Comment on above: Performed By: #### L IPID, CMP #### [facility] [address] [place] [address] Dr. Orlin Kellogg Globulin (S) [Mass/Vol] 3.6 g/dL Normal [facility] Comment on above: Performed By: #### L IPID, CMP #### [facility] [address] [place] [address] Dr. Orlin Kellogg Glucose [Mass/Vol] 113 mg/dL Critically high 74-106 [facility] Comment on above: Performed By: #### L IPID, CMP #### [facility] [address] [place] [address] Dr. Orlin Kellogg Potassium [Moles/Vol] 4.7 mmol/L Normal 3.5-5.1 [facility] Comment on above: Performed By: #### L IPID, CMP #### [facility] [address] [place] [address] Dr. Orlin Kellogg Protein [Mass/Vol] 7.8 g/dL Normal 6.4-8.2 [facility] Comment on above: Performed By: #### L IPID, CMP #### [facility] [address] [id number] Orlin Kellogg Sodium [Moles/Vol] 142 mmol/L Normal 136-145 [facility] Comment on above: Performed By: #### L IPID, CMP #### [facility] [address] [address] [address] Orlin Kellogg Urea nitrogen [Mass/Vol] 26.0 mg/dL Critically high 7.0-18.0 [facility] Comment on above: Performed By: #### L IPID, CMP #### [facility] [address] [address] [address] Orlin Kellogg Urea nitrogen/Creatinine [Mass ratio] 18.1 mg/mg Normal [facility] Comment on above: Performed By: #### L IPID, CMP #### [facility] [address] [address] [address] Orlin Kellogg MRI KNEE LT WO CONon 10-19-2 021 MRI KNEE LT WO CON EXAMINATION: MRI KNE E LT WO CON HISTORY: Derangement of knee ; chronic left knee pain COMPARISON: No relevant comparison available. TECHNIQUE: A complete multi-planar MRI was performed. FINDINGS: MEDIAL COMPARTMENT MEDIAL MENISCUS: Large radial tear at the posterior junction with possible undersurface or horizontal tear extending into the posterior horn. Partial extrusion of the meniscus from the joint space. CARTILAGE: No visible defect. BONES: No marrow pathology, fracture, or significant arthropathy. MCL AND MEDIAL CAPSULE: Grade I sprain of the medial collateral ligament. LATERAL COMPARTMENT LATERAL MENISCUS: Suspect small undersurface tear of the posterior junction/posterior horn. CARTILAGE: No visible defect. BONES: No marrow pathology, fracture, or significant arthropathy. LCL/POSTEROLAT COMPLEX: Normal lateral collateral ligament, fascicles, lateral capsule and ligaments. ANTERIOR COMPARTMENT PATELLA: Several foci of mild cortical edema involving the apex and lateral facet of the superior pole. CARTILAGE: Mild cartilage thinning and edema of the lateral facet. TENDONS: Normal. EFFUSION: None. No synovitis or loose bodies. ACL: Normal appearing ligament. PCL: Normal appearing ligament. MENISCOFEMORAL: Normal meniscofemoral ligaments. OTHER: Small Barth's cyst. IMPRESSION: 1. Medial meniscus posterior junction large radial tear possibly extending into undersurface tear and horizontal tear of the posterior horn. 2. Grade 1 sprain of the medial collateral ligament. 3. Artifact versus small undersurface tear of the lateral meniscus posterior junction/horn. 4. 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 5. Small Barth's cyst. Electronically authenticated by: OANH LEBRON Date: 2021-06-28 13:39 Normal [facility] Vital Signs Date Time Vital Sign Value Performing Clinician Facility 02-05-2024 10:23-0400 Blood Pressure Location FATOU SANTAMARIA [facility] 02-05-2024 10:23-0400 Diastolic blood pressure 76 mm[Hg] FATOU SANTAMARIA [facility] 02-05-2024 10:23-0400 Heart rate 80 /min FATOU SANTAMARIA [facility] [facility]24 10:23-0400 Respiratory rate 19 /min FATOU SANTAMARIA [facility] 02-05-2024 10:23-0400 Systolic blood pressure 150 mm[Hg] FATOU SANTAMARIA [facility] 03-16-2023 12:30-0400 Diastolic blood pressure 81 mm[Hg] MD Talia Prieto Work Phone: [facility] 03-16-2023 12:30-0400 Heart rate 61 /min MD Talia Prieto Work Phone: [facility] 03-16-2023 12:30-0400 Respiratory rate 16 /min MD Talia Prieto Work Phone: [facility] 03-16-2023 12:30-0400 SaO2% (BldA) [Mass fraction] 98 % MD Talia Prieto Work Phone: [facility] 03-16-2023 12:30-0400 Systolic blood pressure 147 mm[Hg] MD Talia Prieto Work Phone: [facility] 03-16-2023 12:00-0400 Inhaled oxygen flow rate 5 L/min MD Talia Prieto Work Phone: [facility] 03-16-2023 10:45-0400 Body height 182.88 cm MD Talia Prieto Work Phone: [facility] 03-16-2023 10:45-0400 Body weight 108.86 kg MD Talia Prieto Work Phone: [facility] 08-19-2022 15:40-0500 Body height 182.88 cm Monica Lor Other [employer] Other 08-19-2022 15:40-0500 Body mass index (BMI) [Ratio] 33.9 kg/m2 Monica Lor Other [employer] Other 08-19-2022 15:40-0500 Body temperature 96.2 [degF] Monica Ortegamond Other [employer] Other 08-19-2022 15:40-0500 Body weight 113.4 kg Monica Ortegamond Other [employer] Other 08-19-2022 15:40-0500 Respiratory rate 18 /min Monica Lor Other [employer] Other 08-19-2022 15:40-0500 SaO2% (BldA) [Mass fraction] 96 % Monica Lor Other [employer] Other Encounters Encounter Date Encounter Type Care Provider Facility Start: 07-21-2024 ambulatory Koffi Mendez ty:[facility] Start: 03-11-2024 End: 03-11-2024 ambulatory Koffi GUNTER Facility:[facility] Start: 03-11-2024 End: 03-11-2024 Patient encounter procedure Koffi GUNTER [facility] Start: 02-05-2024 End: 02-06-2024 ambulatory PA-C FATOU SANTAMARIA Facility:[facility] Start: 02-05-2024 End: 02-05-2024 Lab Drop off FATOU SANTAMARIA [facility] Start: 02-05-2024 End: 02-06-2024 ambulatory PA-C FATOU SANTAMARIA Facility:[facility] Start: 02-05-2024 End: 02-05-2024 Patient encounter procedure FATOU E ROSALIO [facility] Start: 10-17-2023 ambulatory PA-C FATOU SANTAMARIA Fac ility[facility] Start: 10-15-2023 End: 10-15-2023 ambulatory Talia Prieto Other [employer] Other Start: 10-15-2023 Telephone [address] Prieto [facility] Start: 05-28-2023 End: 05-28-2023 ambulatory Talia Prieto Other [employer] Other Start: 05-28-2023 [address] Prieto [facility] Start: 03-16-2023 End: 03-16-2023 ambulatory Joe Portillo Facility:[facility] Start: 03-16-2023 End: 03-16-2023 Admission to same day surgery center MD Talia Prieto Work Phone: [facility] Work Phone: Start: 03-16-2023 End: 03-16-2023 ambulatory MD Talia Prieto Work Phone: [facility] Work Phone: Start: 01-17-2023 End: 01-17-2023 ambulatory Talia Prieto Other [employer] Other Start: 01-17-2023 Telephone encounter Talia Prieto [facility] Start: 08-19-2022 End: 08-19-2022 ambulatory Monica Horowitz Other [employer] Other Start: 08-19-2022 Office outpatient ne w 20 minutes Monica Horowitz [facility] [place] Start: 04-18-2022 Problem, abnormal examination Talia Prieto Other [employer] Other Start: 04-17-2022 End: 04-18-[address] TALIA PRIETO Facility:[facility] Start: 02-10-2022 End: 02-11-[address] TALIA PRIETO Facility:[facility] Start: 06-28-2021 End: 06-29-2021 ambulatory LATONIA ISBELL Facility:[facility] Procedures Date Procedure Procedure Detail Performing Clinician Start: 03-16-2023 Colonoscopy MD Talia Prieto Work Phone: Start: 02-10-[address] TALIA PRIETO Comment on above: Performed By: #### [facility] #### [facility] [address] [place] [address] Dr. Orlin Kellogg Start: 08-28-2017 Laboratory test resu lt abnormal Talia Prieto Other Start: 06-29-2017 Screening for malign ant neoplasm of prostate Talia Prieto Other Colonoscopy FATOU SANTAMARIA Screening for malign ant neoplasm of prostate Talia Prieto Other Plan of Treatment Date Care Activity Detail Author Start: 03-16-2023 [facility] Patient Education Colon polyps [facility] Work Phone: Payers Date Payer Category Payer Medicare [id number] 2023 Self-pay [id number] 1960 Medicare [id number] 1959 Private Health Insurance [id number] 1950 Unknown [id number] 2.16.84 [id number] 1950 Unknown [id number] 2.16.84 [id number] 1949 Unknown [id number] 2.16.84 [id number] 1949 Unknown [id number] 2.16.8 [id number] 1949 Unknown [id number] 2.16.8 [id number] 1949 Unknown [id number] 2.16.8 [id number] 1949 Unknown [id number] 2.16.8 [id number] Medicare [id number] 2.1 [id number] Unknown [id number] 2.16.8 [id number] Social History Date Type Detail Facility Unknown if ever smoked [employer] Other Sex Assigned At [facility] Start: 03-16-2023 Tobacco smoking stat us NJIS Never smoked tobacco (finding) [facility] Start: 1950 Sex Assigned At Male F [facility] Start: 02-05-2024 Tobacco smoking status Ex-smoker (fi nding) [facility] Goals Date Patient Goal Desired Activity /State Functional Status Date Assessment Result Facility 02-05-2024 Functional Status N/A [facility] Clinical Notes 08-10-2021 to 03-11-2024 Note Date & Type Note Facility 03-11-2024 Hospital Discharg e instructions Patient Education 03/11/2024 15:56:22 [facility] - Cystoscopy Discharge Instructions (CUSTOM) Cystoscopy Voiding after the procedure: there may be some pain, burning, urgency, frequency and blood tinged urine following the procedure. These symptoms usually resolve within 2-5 days. Drink the amount of fluid it takes to keep the urine pink to yellow or clear in color. Drinking enough water and fluids will help to ease any discomfort after your procedure. If you are having problems that seem out of the ordinary, please call. If unable to contact your physician and you feel it is an emergency, go to the nearest emergency room or call 911 Diet you may resume your normal diet. Activity you may resume your normal activities Call if you have a fever over 100 degrees. Follow Up Care 02/05/2024 12:36:26 With:Koffi GUNTER Address: [address] [place], [place] [id number] [facility] (1) When:07/12/2024 15:56:09 [facility] 03-11-2024 Note Patient Education Custom Cystoscopy ? Voiding after the procedure: there may be some pain, burning, urgency, frequency and blood tinged urine following the procedure. These symptoms usually resolve within 2-5 days. Drink the amount of fluid it takes to keep the urine pink to yellow or clear in color. Drinking enough water and fluids will help to ease any discomfort after your procedure. ? If you are having problems that seem out of the ordinary, please call. ? If unable to contact your physician and you feel it is an emergency, go to the nearest emergency room or call 911 ? Diet ? you may resume your normal diet. ? Activity ? you may resume your normal activities ? Call if you have a fever over 100 degrees. [facility] 02-05-[address] Prieto referral HPI Staff Evaluation requested by Dr Talia Prieto due to urinary frequency. Pt is a new pt. Never before seen in our office. Verified on DA). Per referral papers, pt started on Tamsulosin therapy. (in October) Pt. will need a refill for Tamsulosin. Hx of prediabetes. Last A1C 10/12/23- 5.5 CMP 10/12/23 *BUN 22.0 Crea 1.46 eGFR 47 NEG UA 10/12/23 PSA 02/11/16- 3.08 06/29/17- 3.10 05/07/19- 2.86 02/10/22- 3.06 10/12/23- 3.63 Dysuria: no Incomplete bladder emptying: Pt. states better since taking Flomax. PVR 96.mL Hematuria: no Frequency: every 30mins, Pt. states he drinks about 8 glass of water a day Urgency: yes Nocturia: 2-3x's Stream: Pt. states since taking the Flomax his stream has better pressure Post void dripping: no Wearing pads/ Depends: no Urge incontinence: no Stress incontinence: no Incontinence without Sensory Awareness: no Abdominal pain: no Flank pain: no History of Present Illness staff HPI reviewed and agree. Review of Systems PHQ Score Initial Depression Screen Score: 0 SCORE no fever, chills, malaise, myalgia. no rash/lesions. no chest pain, palpitations, or SOB. no abdominal pain, nausea, vomiting. no unilateral calf swelling, redness, pain Physical Exam Vitals & Measurements HR: 80(Peripheral) RR: 19 BP: 150/76 HT: 72 in HT: 182 cm WT: 102.5 kg WT: 225.5 lb BMI: 30.94 General: nontoxic, NAD Mouth: moist mucosa Lungs: normal respiratory effort Cardio: regular rate, good distal perfusion Abdomen: nondistended, no suprapubic distention or tenderness, no CVA tenderness Neurologic: Grossly normal Skin: No rashes or suspicious lesions Assessment/Plan Haider is a 73 yo male new pt referred by Dr. Talia Prieto for urinary frequency. 10/12/23 -BUN 22. Cr 1.46. eGFR 47. A1c 5.5. 1. Urinary frequency (R35.0: Frequency of micturition) Voiding q30min during the day. Nocturia 2-3x/night. Admits to drinking 8 glasses of water per day. No bladder irritants. Unchanged since recently starting Tamsulosin. Discussed cystoscopy to evaluate bladder and prostate to evaluate possible etiology of continued frequency. If significant obstruction, may benefit from increased dose of tamsulosin vs add 5-LENNY vs TURP. If minimal obstruction identified, may benefit from OAB meds. -Will schedule cystoscopy. The risks and benefits for cystoscopy have been discussed. The risks include bleeding, infection, and irritation of the bladder and urinary channel, among others. The patient, after being informed of procedural details and after questions have been answered, wishes to proceed. Full informed consent has been obtained. Will order Local anesthesia. -Cont Tamsulosin daily for now 2. BPH with obstruction/lower urinary tract symptoms (N40.1: Benign prostatic hyperplasia with lower urinary tract symptoms) IPSS 11, QoL 1. UA today negative for blood and infection. PVR 96 mL. Taking Tamsulosin 0.4mg qd, started 10/2023 per PCP. States stream has improved significantly. No bothersome side effects. -Cont Tamsulosin daily. Refills sent. 3. Screening PSA (prostate specific antigen) (Z12.5: Encounter for screening for malignant neoplasm of prostate) PSA 02/11/16- 3.08 06/29/17- 3.10 05/07/19- 2.86 02/10/22- 3.06 10/12/23- 3.63 PCP checks PSA. within normal range. Follow-up With When Contact Information ROSALIO AUSTIN, FATOU Jaimes, URL [address] [facility] [place] [address] [phone] Additional Instructions: sched cysto Patient Education Cystoscopy Documentation recorded by the amanda Persaud accurately reflects the services(s) I performed and decisions made by me. Authenticated by Fatou Santamaria PA-C on 02/05/2024 11:23:52. Mandy De La Torre, personally scribed for Fatou Santamaria PA-C on 02/05/2024 11:17:46. . Problem List/Past Medical History Ongoing BPH with obstruction/lower urinary tract symptoms Essential hypertension Prediabetes Screening PSA (prostate specific antigen) Historical No qualifying data Procedure/Surgical History Colonoscopy. Medications cetirizine fenofibrate 160 mg oral tablet lisinopril 10 mg Tab tamsulosin 0.4 mg Cap Allergies Bactrim (Ear problem) Social History Alcohol - Denies Alcohol Use, 02/05/2024 Tobacco Former smoker, quit more than 30 days ago Tobacco Use:. Cigarettes, 02/05/2024 Lab Results Ambulatory Point of Care Results Bilirubin Urine Dipstick: Negative (02/05/24 10:31:00) Blood Urine Dipstick: Negative (02/05/24 10:31:00) Glucose Urine Dipstick: Negative (02/05/24 10:31:00) Ketones Urine Dipstick: Negative (02/05/24 10:31:00) Leukocytes Urine Dipstick: Negative (02/05/24 10:31:00) Nitrite Urine Dipstick: Negative (02/05/24 10:31:00) Protein Urine Dipstick: Negative (02/05/24 10:31:00) Specific [place] Urine Dipstick: 1.020 (02/05/24 10:31:00) Urine Appearance Urine Dipstick: Clear (01/09 (more content not included)... [facility] Comment on above: Result Comment: Elec tronically Signed By: FATOU SANTAMARIA PA-C\.br\Date and Time Signed: 02/05/24 11:24 EDT\.br\Electronically Co-Signed By: Mandy Persaud\.br\Date and Time Co-Signed: 02/05/24 11:18 EDT 02-05-2024 [facility] Discharg e instructions Patient Education 02/05/2024 11:15:43 Cystoscopy Cystoscopy Cystoscopy is a procedure that is used to help diagnose and sometimes treat conditions that affect the lower urinary tract. The lower urinary tract includes the bladder and the urethra. The urethra is the tube that drains urine from the bladder. Cystoscopy is done using a thin, tube-shaped instrument with a light and camera at the end (cystoscope). The cystoscope may be hard or flexible, depending on the goal of the procedure. The cystoscope is inserted through the urethra, into the bladder. Cystoscopy may be recommended if you have: Urinary tract infections that keep coming back. Blood in the urine (hematuria). An inability to control when you urinate (urinary incontinence) or an overactive bladder. Unusual cells found in a urine sample. A blockage in the urethra, such as a urinary stone. Painful urination. An abnormality in the bladder found during an intravenous pyelogram (IVP) or CT scan. Cystoscopy may also be done to remove a sample of tissue to be examined under a microscope (biopsy). Tell a health care provider about: Any allergies you have. All medicines you are taking, including vitamins, herbs, eye drops, creams, and rzeu-zav-rxymfcn medicines. Any problems you or family members have had with anesthetic medicines. Any blood disorders you have. Any surgeries you have had. Any medical conditions you have. Whether you are or may be . What are the risks? Generally, this is a safe procedure. However, problems may occur, including: Infection. Bleeding. Allergic reactions to medicines. Damage to other structures or organs. What happens before the procedure? Medicines Ask your health care provider about: Changing or stopping your regular medicines. This is especially important if you are taking diabetes medicines or blood thinners. Taking medicines such as aspirin and ibuprofen. These medicines can thin your blood. Do not take these medicines unless your health care provider tells you to take them. Taking sbhb-tpn-jtxasoa medicines, vitamins, herbs, and supplements. Tests You may have an exam or testing, such as: X-rays of the bladder, urethra, or kidneys. CT scan of the abdomen or pelvis. Urine tests to check for signs of infection. General instructions Follow instructions from your health care provider about eating or drinking restrictions. Ask your health care provider what steps will be taken to help prevent infection. These steps may include: ?Washing skin with a germ-killing soap. ?Taking antibiotic medicine. Plan to have a responsible adult take you home from the hospital or clinic. What happens during the procedure? You will be given one or more of the following: ?A medicine to help you relax (sedative). ?A medicine to numb the area (local anesthetic). The area around the opening of your urethra will be cleaned. The cystoscope will be passed through your urethra into your bladder. Germ-free (sterile) fluid will flow through the cystoscope to fill your bladder. The fluid will stretch your bladder so that your health care provider can clearly examine your bladder kirkpatrick. Your doctor will look at the urethra and bladder. Your doctor may take a biopsy or remove stones. The cystoscope will be removed, and your bladder will be emptied. The procedure may vary among health care providers and hospitals. What can I expect after the procedure? After the procedure, it is common to have: Some soreness or pain in your abdomen and urethra. Urinary symptoms. These include: ?Mild pain or burning when you urinate. Pain should stop within a few minutes after you urinate. This may last for up to 1 week. ?A small amount of blood in your urine for several days. ?Feeling like you need to urinate but producing only a small amount of urine. Follow these instructions at home: Medicines Take qwlg-tdn-qocoqeb and prescription medicines only as told by your health care provider. If you were prescribed an antibiotic medicine, take it as told by your health care provider. Do not stop taking the antibiotic even if you start to feel better. General instructions Return to your normal activities as told by your health care provider. Ask your health care provider what activities are safe for you. If you were given a sedative during the procedure, it can affect you for several hours. Do not drive or operate machinery until your health care provider says that it is safe. Watch for any blood in your urine. If the amount of blood in your urine increases, call your health care provider. Follow instructions from your health care provider about eating or drinking restrictions. If a tissue sample was removed for testing (biopsy) during your procedure, it is up to you to get your test results. Ask your health care provider, or the department that is doing the test, when your results will be ready. Drink enough fluid to keep your urine pale yellow. Keep all follow-up visits. This is important. Contact a health care provider if: You have pain that gets worse or does not get better with medicine, especially pain when you urinate. You have trouble urinating. You have more blood in your urine. Get help right away if: You have blood clots in your urine. You have abdominal pain. You have a fever or chills. You are unable to urinate. Summary Cystoscopy is a procedure that is used to help diagnose and sometimes treat conditions that affect the lower urinary tract. Cystoscopy is done using a thin, tube-shaped instrument with a light and camera at the end. After the procedure, it is common to have some soreness or pain in your abdomen and urethra. Watch for any blood in your urine. If the amount of blood in your urine increases, call your health care provider. If you were prescribed an antibiotic medicine, take it as told by your health care provider. Do not stop taking the antibiotic even if you start to feel better. This information is not intended to replace advice given to you by your health care provider. Make sure you discuss any questions you have with your health care provider. Document Revised: 05/10/2022 Document Reviewed: 04/08/2021 [employer] Patient Education 2022 [employer]. Follow Up Care 10/18/2023 09:33:39 With:FATOU SANTAMARIA PA-C, URL Address: [address] [place] [address] [phone] When: Unknown [facility] 02-05-2024 Note Urology Cystoscopy Cystoscopy is a procedure that is used to help diagnose and sometimes treat conditions that affect the lower urinary tract. The lower urinary tract includes the bladder and the urethra. The urethra is the tube that drains urine from the bladder. Cystoscopy is done using a thin, tube-shaped instrument with a light and camera at the end (cystoscope). The cystoscope may be hard or flexible, depending on the goal of the procedure. The cystoscope is inserted through the urethra, into the bladder. Cystoscopy may be recommended if you have: ? Urinary tract infections that keep coming back. ? Blood in the urine (hematuria). ? An inability to control when you urinate (urinary incontinence) or an overactive bladder. ? Unusual cells found in a urine sample. ? A blockage in the urethra, such as a urinary stone. ? Painful urination. ? An abnormality in the bladder found during an intravenous pyelogram (IVP) or CT scan. Cystoscopy may also be done to remove a sample of tissue to be examined under a microscope (biopsy). Tell a health care provider about: ? Any allergies you have. ? All medicines you are taking, including vitamins, herbs, eye drops, creams, and juth-xcu-faafpyr medicines. ? Any problems you or family members have had with anesthetic medicines. ? Any blood disorders you have. ? Any surgeries you have had. ? Any medical conditions you have. ? Whether you are or may be . What are the risks? Generally, this is a safe procedure. However, problems may occur, including: ? Infection. ? Bleeding. ? Allergic reactions to medicines. ? Damage to other structures or organs. What happens before the procedure? Medicines Ask your health care provider about: ? Changing or stopping your regular medicines. This is especially important if you are taking diabetes medicines or blood thinners. ? Taking medicines such as aspirin and ibuprofen. These medicines can thin your blood. Do not take these medicines unless your health care provider tells you to take them. ? Taking rcim-rju-tmpoxwp medicines, vitamins, herbs, and supplements. Tests You may have an exam or testing, such as: ? X-rays of the bladder, urethra, or kidneys. ? CT scan of the abdomen or pelvis. ? Urine tests to check for signs of infection. General instructions ? Follow instructions from your health care provider about eating or drinking restrictions. ? Ask your health care provider what steps will be taken to help prevent infection. These steps may include: ? Washing skin with a germ-killing soap. ? Taking antibiotic medicine. ? Plan to have a responsible adult take you home from the hospital or clinic. What happens during the procedure? ? You will be given one or more of the following: ? A medicine to help you relax (sedative). ? A medicine to numb the area (local anesthetic). ? The area around the opening of your urethra will be cleaned. ? The cystoscope will be passed through your urethra into your bladder. ? Germ-free (sterile) fluid will flow through the cystoscope to fill your bladder. The fluid will stretch your bladder so that your health care provider can clearly examine your bladder kirkpatrick. ? Your doctor will look at the urethra and bladder. Your doctor may take a biopsy or remove stones. ? The cystoscope will be removed, and your bladder will be emptied. The procedure may vary among health care providers and hospitals. What can I expect after the procedure? After the procedure, it is common to have: ? Some soreness or pain in your abdomen and urethra. ? Urinary symptoms. These include: ? Mild pain or burning when you urinate. Pain should stop within a few minutes after you urinate. This may last for up to 1 week. ? A small amount of blood in your urine for several days. ? Feeling like you need to urinate but producing only a small amount of urine. Follow these instructions at home: Medicines ? Take vdgg-iqe-fdmyegi and prescription medicines only as told by your health care provider. ? If you were prescribed an antibiotic medicine, take it as told by your health care provider. Do not stop taking the antibiotic even if you start to feel better. General instructions ? Return to your normal activities as told by your health care provider. Ask your health care provider what activities are safe for you. ? If you were given a sedative during the procedure, it can affect you for several hours. Do not drive or operate machinery until your health care provider says that it is safe. ? Watch for any blood in your urine. If the amount of blood in your urine increases, call your health care provider. ? Follow instructions from your health care provider about eating or drinking restrictions. ? If a tissue sample was removed for testing (biopsy) during your procedure, it is up to you to get your test results. Ask your health care provider, or the department th (more content not included)... [facility] 03-16-2023 Procedure note [facility] 08-19-2022 Evaluation note Encounter Date Diagnosis Assessment Notes Aug, Cough (ICD-10 - R05.9) Aug, Influenza A (ICD-10 - J10.1) Influenza: adult home care material was printed Drink plenty of fluids, get plenty of rest. Take Tylenol or Motrin as needed for aches pains or fevers. You must quarantine until Sunday. Follow-up with your family physician in 2 to 3 days if no improve [employer] Other 12-01-2021 History general Narrative - Reported* Type Description Date Medical History hypertension Surgical History Problem Title : Arth roscopic Knee Surgery - Right, Problem Status : Active, Surgical History Problem Title : L kn ee arthroscopic surgery 08/2021, Problem Status : Active, Surgical History Problem Title : past surgical history reviewed, Problem Description : past surgical history reviewed, Problem Comment : reviewed - no changes required, Problem Status : Active, Surgical History Problem Title : surg ical procedures, hx of, Problem Description : surgical procedures, hx of, Problem Comment : R knee arthroscopic repair of torn meniscus, Problem Status : Active, Hospitalization History See Above [employer] Other Evaluation + Plan note Future Appointments Appointment Date:02/26/2024 08:00:00 AM Scheduled Provider: Location:[facility] Appointment Type:Urology CALL PAT FT Appointment Date:03/11/2024 03:30:00 PM Scheduled Provider: Location:[facility] Appointment Type:Urology FT [facility] evaluation + Plan note Future Appointments Appointment Date:07/21/2024 01:15:00 PM Scheduled Provider:Koffi GUNTER MD Location:[facility] App[facility]ment [facility] note[facility] InformationNort [employer] Other Evaluation noteNo assessment information available [facility] Work Phone: History and physical note Author Joe Portillo [facility] March 16, 2023 11:44am Note Date/Time March 16, 2023 11:44 am [facility] [address] [place] [address] Gastroenterology H&P Signed Patient: Haider Bledsoe MR#: [id number] : 1950 Acct:[id number] Age/Sex: 72 / M Adm Date: 3 Loc: Room: Type: [facility] Attending Dr: Joe Portillo MD Copies to: MD Talia Silvestre MD~ Date of Service: 03/16/2023 HISTORY & PHYSICAL: Patient's history with special attention to the cardiovascular, pulmonary systems and the current problem was reviewed with the patient immediately prior to the procedure. Present medications and doses reviewed in the EMR. Allergies and pertinent laboratory tests were also reviewedat this time in the EMR. The physical examination, as below, was then performed. Indication, assessment and HPI: 72-year-old male presents for surveillance colonoscopy Family history of GI malignancy? No PHYSICAL EXAMINATION Mouth and Pharynx : Moist mucus membranes, normal dentition Cardiac: Regular rate, regular rhythm Pulmonary: Clear to auscultation bilaterally, no wheezing Neurological: Alert and oriented x3, no focal deficits noted Abdomen: Abdomen soft, non-tender REVIEW OF SYSTEMS Constitutional: Denies malaise, fevers Cardiovascular: Denies chest pain, palpitations Respiratory: Denies shortness of breath, wheezing Gastrointestinal: Per HPI Genitourinary: Denies dysuria, polyuria Musculoskeletal: Denies joint swelling, joint stiffness Neurological: Denies numbness, tingling Integumentary: Denies rashes, skin lesions Endocrine: Denies fatigue, weight loss Written informed consent obtained from the patient. Risks (including but not limited to perforation, infection, bloating, bleeding, need for emergent surgeryand loss of life), benefits and alternatives explained and questions answered. The patient verbalized understanding. Based on history patient is an appropriate candidate for the procedure. Joe Portillo MD Documented By: Joe Portillo MD 03/16/23 1143 Signed By: <Electronically signed by Joe Portillo MD> 03/16/23 1144 [facility] Work Phone: History general Narrative - Reported* Type Description Date Medical History hypertension Surgical History colonoscopy Hospitalization History See Above [employer] Other Hospital course Narrative No data available for this section [facility] Hospital Discharge instructions Additional Instructions DISCHARGE INSTRUCTIONS FOR COLONOSCOPY WHAT TO EXPECT: - You may feel full, gassy or cramping after your procedure. In some cases, this may be from a few hours to a day. Walking may help relieve the discomfort. - If you have polyp(s) removed you may note some minor bloody discharge after your first bowel movements. - You should begin to recover from anesthesia within 1 hour of the procedure, however may feel groggy for the next 24 hours. DO's AND DON'Ts: - Call your doctor right away if you have a hard abdomen, severe pain, are passing lots of bright red blood or clots. - Call your doctor if you develop any rashes, hives or difficulty breathing. - Let your doctor know if you have not had a bowel movement by 3 days after your procedure. - If you take 81 mg aspirin for your heart it is safe to resume this medication. - If you take other blood thinner medications your doctor will instruct you when these can safely be resumed. - Do NOT drive for 24 hours. - Do NOT operate machinery such as power tools, lawn mowers, snow blowers, sewing machines, etc. for 24 hours. - Avoid alcoholic beverages and drugs for allergies, nerves, or sleep. - Do NOT stay alone. Do NOT leave your child unattended. - Do NOT make important personal or business decisions or sign any legal documents. - Eat solid foods and drink liquids in smaller amounts than usual until normal appetite returns. If you should experience an upset stomach, liquids high in sugar content (soda, Roman-Aid, non-acid juices) are recommended. - You can resume normal activities tomorrow. FOLLOW UP & RECOMMENDATIONS: -Follow-up with the GI office as needed -Notify the doctor if you have any problems. -Repeat colonoscopy in 5 years. -Follow up with PCP. -Office number [phone].[facility] Work Phone: Hospital Discharge instructions No data available for this section [facility] No data available for this section [facility] Summary Purpose Family History No Family History Records Found Relationship Condition Age at Onset Recorded Date/T alfreda Not Specified Hypertension Unknown daughter Disorder of thyroid Unknown Advance Directives No Advanced Directives Records Found Advance Directive Response Recorded Date/ Time Advance Directives No August 11:13am Chief Complaint and Reason for Visit Chief Complaint Hx Colon Polyps Additional Source Comments (unrecognized sect ion and content) No Status Records FoundNo Status Records FoundNo Status Records FoundNo Status Records FoundNo Status Records Found INFORMATION SOURCE (unrecogn ized section and content) DATE CREATED AUTHOR 04/19/2022 [facility] DATE CREATED AUTHOR AUTHOR'S ORGANIZ ATION 03/23/2023 [facility] DATE CREATED AUTHOR AUTHOR'S ORGANIZ ATION 02/06/2024 [facility] DATE CREATED AUTHOR AUTHOR'S ORGANIZ ATION 03/13/2024 [facility] REASON FOR VISIT (unrecogniz ed section and content) COUGH, CONGESTIONRefillrefil llabs Care Teams (unrecognized sec tion and content) Team Status: Active Member Role Status Dates Talia Prieto MD Primary Care Provider Active Team Status: Inactive Member Role Status Dates Talia Prieto MD Primary Care Provider Active Joe Portillo MD Attending Provider Active FOR RECORDS PERTAINING TO PATIENTS WHO ARE OR HAVE BEEN ENROLLED IN A CHEMICAL DEPENDENCY/SUBSTANCEABUSE PROGRAM, SOME INFORMATION MAY BE OMITTED. This clinical summary was aggregated from multiple sources. Caution should be exercised in using it in the provision of clinical care. This summary normalizes information from multiple sources, and as a consequence, information in this document may materially change the coding, format and clinical context of patient data. In addition, data may be omitted in some cases. CLINICAL DECISIONS SHOULD BE BASED ON THE PRIMARY CLINICAL RECORDS. [facility] [employer] [facility] provides no warranty or guarantee of the accuracy or completeness of information in this document.
[2024-05-07 11:29] LABS: Basophils Percent Auto 0.7 % (0.2-2.0); Eosinophils Absolute Auto 0.1 10^3/uL (0.0-0.7); Eosinophils Percent Auto 1.9 % (0.9-7.0); Hematocrit 42.1 % (42.0-54.0); Hemoglobin 13.7 g/dL (14.0-18.0); Immature Granulocytes Abs Auto 0.02 10^3/uL (0.00-0.03); Immature Granulocytes Pct Auto 0.5 % (0.0-0.5); Lymphocytes Absolute Auto 1.7 10^3/uL (1.2-3.8); Lymphocytes Percent Auto 39.8 % (20.5-60.0); Mean Corpuscular HGB Conc 32.5 g/dL (29.9-35.2); Mean Corpuscular Hemoglobin 28.3 pg (25.9-34.0); Monocytes Absolute Auto 0.3 10^3/uL (0.3-0.8); Monocytes Percent Auto 6.8 % (1.7-12.0); Neutrophils Absolute Auto 2.1 10^3/uL (1.4-6.5); Neutrophils Percent Auto 50.3 % (43.0-75.0); Platelet Count 246 10^3/uL (150-450); Red Blood Count 4.84 10^6/uL (4.70-6.10); Red Cell Distribution Width 13.3 % (11.0-15.0); White Blood Count 4.3 10^3/uL (4.0-11.0)
[2024-05-07 11:40] LABS: Microalbumin Urine Random <1.3 mg/dL (<=30.0)
== END 2024-05-07 10:49 | disposition home or self-care (01) ==
LOC: LAB 10:49
PROVIDERS: PCP Family Medicine; Visit Provider Family Medicine
DX: E78.5 Hyperlipidemia, unspecified (principal); I10 Essential (primary) hypertension
CPT/HCPCS: 36415; 80053; 80061; 82043; 85025

== ENCOUNTER 2024-05-17 09:58 | Outpatient (OUT) | payer MEDICARE, OTHER, SELFPAY ==
--- OUTSIDE RECORDS SUMMARY | 2024-05-17 10:01 | XMS_ITS | CCD ---
Author Organization [facility] Care Team Providers Care Molecular Technologist Name Role Phone DR TALIA PRIETO Admitting Unavailable PRIETO, DR TALIA Jaimes Attending Unavailable PRIETO, DR TALIA Jaimes Primary Care [...] Unavailable MD Talia Prieto Primary Care Provider [phone] MD Joe Portillo Attending Provider Joe Portillo Attending Unavailable Joe Portillo Admitting Unavailable Talia Prieto Primary Care Unavailable TALIA PRIETO Primary Care Physician GEOVANNA SANTAMARIA Attending Unavailab GEOVANNA Sung Admitting [...] (finding) [facility] (2 sources) Sulfamethoxazole; Translations: [sulfamethoxazole] Drug Allergy 03-16-20 Unknown Reaction [facility] (2 sources) Trimethoprim; Translations: [trimethoprim] Drug Allergy 03-16-20 Unknown Reaction [facility] (2 sources) Allergies Reconciled Propensity to adverse reactions Unknown [employer] Other (2 sources) Sulfamethoxazole / Trimethoprim; Translations: [Bactrim] Drug Allergy [facility] Repository Medications Current Medications Medication Drug Class(es) [...] Daily, # 90 cap(s), Refills(s) 3, Pharmacy: [facility], 182, cm, 02/05/24 10:43:00 [...] BID, # 180 caplet(s), Refills(s) 3, Pharmacy: [facility], 182, cm, 02/05/24 10:43:00 EDT, Height/Length Dosing, 102.5, kg, 02/05/24 10:43:00 EDT, Weight Dosing Start Date: 03/11/24 Status: Ordered Start: 02-05-2024 tamsulosin 0.4 mg Cap 0.4 mg = 1 cap(s), Oral, Daily, 30 EA, 0 Refill(s), TAKE 1 CAPSULE BY MOUTH DAILY, # 30 cap(s), Refills(s) 11, Pharmacy: [facility], 182, cm, 02/05/24 10:43:00 EDT, Height/Length Dosing, 102.5, kg, 02/05/24 10:43:00 EDT, Weight Dosing Start Date: 02/05/24 Status: Ordered Start: 10-15-2023 take 1 capsule by [facility] every twenty-four hours Flomax 0.4 MG [...] procedure, # 2 tab(s), Refills(s) 0, Pharmacy: [facility], 182, cm, 02/05/24 10:43:00 [...] current use of drug therapy; Translations: [Other superintendent container terminal (current) drug therapy] Onset: 02-04-2015 Episodic Other [...] Maynor Barlow/Sex: 1950 Male Med Rec #: [id number] Physician: Koffi GUNTER MD Financial #: [id number] Pt. Type: O Room/Bed: / Admit/Disch: 03/11/24 [...] Performed Surgeon - Primary Scrub - Primary Tooling Specialist - Primary Time In 03/11/24 15:45:00 03/11/24 [...] 03/11/24 15:54 Eliza Andrade 03/11/24 15:56 Normal [facility] Main OR Preoperative Recordo n 03-11-2024 Main OR Preoperative Record Main OR Preoperative Record Holding Area Document Type FTURO Summary Primary Physician: Koffi GUNTER MD Finalized Date/Time: 03/11/24 15:26:16 Pt. Name: RAKAN HAIDER Barlow/Sex: 1950 Male Med Rec #: [id number] Physician: Koffi GUNTER MD Financial #: [id number] Pt. Type: O Room/Bed: / Admit/Disch: 03/11/24 [...] MARCELINA Richards RN, Ruthann 03/11/24 15:26 Normal [facility] Operative Reporton Operative Report Operative Report Patient: [...] be in 4 months for reevaluation.. Normal [facility] Comment on above: Result Comment: Elec tronically Signed By: Koffi GUNTER MD\.br\Date and Time Signed: 03/11/24 15:58 EDT PSA Totalon 02-07-2024 Prostate specific Ag [Mass/Vol] see comment Invalid Interpretation Code 0.1-3.5 [facility] Comment on above: Result Comment: Per Farzana [...] for this result was chemiluminescence using [employer]'s Access Hybritech PSA reagent. The concentration of PSA determined by different manufacturers can vary due to differences in assay methods and reagent specificity. Values obtained from different assay methods cannot be used interchangeably. The methodology used for this result was chemiluminescence using [employer] Access Hybritech PSA reagent. Performed By: #### 1 [id number] #### [facility] [address] [place] [address] PSA Totalon 02-06-2024 Prostate specific Ag [Mass/Vol] 6.6 ng/mL High 0.1-3.5 [facility] Comment on above: Result Comment: The concentration of PSA determined by different manufacturers can vary due to differences in assay methods and reagent specificity. Values obtained from different assay methods cannot be used interchangeably. The methodology used for this result was chemiluminescence using [employer] Access Hybritech PSA reagent. Performed By: #### 1 [id number] #### [facility] [address] [place] [address] Physician Referralon 024 Physician Referral [id number] 1.00TIFF Normal [facility] Screenson 02-06-2024 Screens [id number] .00TIFF Normal [facility] Ambulatory Visit Summaryon 0 02-05-2024 Ambulatory Visit [...] PA-C, URL When: Where: [address] [facility] [place] [address] [id number] Medications What When Instructions Unchanged cetirizine Unchanged [...] including vitamins, herbs, eye drops, creams, and fvxj-uom-jqplzdr medicines. ? Any problems you or family [...] tells you to take them. ? Taking dnhd-nyw-mamqhav medicines, vitamins, herbs, and supplements. Tests You [...] will b (more content not included)... Normal [facility] CHEMISTRYOrdered By: SYSTEM SYSTEM on 02-05-2024 Prostate specific Ag [Mass/Vol] 6.6 ng/mL High 0.1 - 3.5 ng/mL [employer] Comment on above: Interpretive Data: T he concentration of PSA determined by different manufacturers can vary due to differences in assay methods and reagent specificity. Values obtained from different assay methods cannot be used interchangeably. The methodology used for this result was chemiluminescence using [employer]'s Access Hybritech PSA reagent. Jacek 03-16-2023 L - -------- Specimen: [id number] Received: 03/16/23 Status: GINETTE Hamilton Num: [id number] Spec Type: Surgical Subm Dr: Joe Portillo MD Tissues: A Colon Biopsy (DESC COL POLYP) Procedures: MARCO ANTONIO/Wilfrido Moreira/Kasey L4 -------- Age/ Patient Sex Location Account Attending Physician -------- Haider Bledsoe 72/M [id number] Joe Portillo MD -------- SPEC NUM: [id number] RECD: 03/16/23 STATUS: GINETTE JOHNTyesha NUM: [id number] JAKY: 03/16/[address] [facility] [address]: Joe Portillo MD ENTERED: 03/16/[address] [facility] [address]: SPEC TYPE: Surgical DEPT: S ENTERED BY: [id number] RECV BY: [id number] ORDERED: HE/2, Gross/Micro L4 ORDERED: HE/2, Gross/Micro [...] microscopic examination confirms the diagnosis. CPT Codes 12838 -------- -------- Specimen: [id number] Received: 03/16/23 Status: GINETTE Alfonso Num: [id number] Spec Type: Surgical Subm Dr: Joe Portillo MD Tissues: A Colon Biopsy (DESC COL POLYP) Procedures: HE/2, Gross/Micro L4 -------- Patient: Haider Bledsoe [id number] (Continued) -------- Signed (signature on file) Diony Triplett MD 03/19/23 0936 [facility] COVID + FLU Quick Testingon 08-19-2022 SARS-CoV-2 (COVID-19) RNA MELANIA+probe Ql (Unsp spec) Negative [facility] bright box Other COVID + FLU Quick Testing Positive [facility] bright box Other COVID + FLU Quick Testing Negative [facility] bright box Other CBC AUTO DIFFon 04-17-2022 BASO # 0.0 103/ul Normal 0.0-0.1 [facility] Comment on above: Performed By: #### C BC #### [facility] [address] [address] [address] Orlin Kellogg Basophils/100 WBC (Bld) 0.6 % Normal 0.2-2.0 [facility] Comment on above: Performed By: #### C BC #### [facility] [address] [place], [place] [address] Dr. Orlin Kellogg EO # 0.1 103/ul Normal 0.0-0.7 [facility] Comment on above: Performed By: #### C BC #### [facility] [address] [place] [address] Dr. Orlin Kellogg Eosinophils/100 WBC (Bld) 1.8 % Normal 0.9-7.0 [facility] Comment on above: Performed By: #### C BC #### [facility] [address] [place] [address] Dr. Orlin Kellogg Erythrocyte distribution width (RBC) [Ratio] 13.1 % Normal 11.0-15.0 [facility] Comment on above: Performed By: #### C BC #### [facility] [address] [place] [address] Dr. Orlin Kellogg Hematocrit (Bld) [Volume fraction] 42.2 % Normal 42.0-54.0 [facility] Comment on above: Performed By: #### C BC #### [facility] [address] [place] [address] Dr. Orlin Kellogg Hemoglobin (Bld) [Mass/Vol] 13.9 g/dL Critically low 14.0-18.0 [facility] Comment on above: Performed By: #### C BC #### [facility] [address] [place] [address] Dr. Orlin Kellogg IG # 0.02 10e3/ul Normal 0.00-0.03 [facility] Comment on above: Performed By: #### C BC #### [facility] [address] [place] [address] Dr. Orlin Kellogg IG % 0.4 % Normal 0.0-0.5 [facility] Comment on above: Performed By: #### C BC #### [facility] [address] [place] [address] Dr. Orlin Kellogg LYMPH # 1.6 103/ul Normal 1.2-3.8 [facility] Comment on above: Performed By: #### C BC #### [facility] [address] [place] [address] Dr. Orlin Kellogg Lymphocytes/100 WBC (Bld) 31.6 % Normal 20.5-60.0 [facility] Comment on above: Performed By: #### C BC #### [facility] [address] [place] [address] Dr. Orlin Kellogg MANUAL DIFF REQ NO Normal [facility] Comment on above: Performed By: #### C BC #### [facility] [address] [place] [address] Dr. Orlin Kellogg MCH (RBC) [Entitic mass] 27.7 pg Normal 25.9-34.0 [facility] Comment on above: Performed By: #### C BC #### [facility] [address] [place] [address] Dr. Orlin Kellogg MCHC (RBC) [Mass/Vol] 32.9 g/dL Normal 29.9-35.2 [facility] Comment on above: Performed By: #### C BC #### [facility] [address] [place] [address] Dr. Orlin Kellogg MCV (RBC) [Entitic vol] 84.2 fL Normal 80.0-94.0 [facility] Comment on above: Performed By: #### C BC #### [facility] [address] [place] [address] Dr. Orlin Kellogg MONO # 0.3 103/ul Normal 0.3-0.8 [facility] Comment on above: Performed By: #### C BC #### [facility] [address] [place] [address] Dr. Orlin Kellogg Monocytes/100 WBC (Bld) 5.7 % Normal 1.7-12.0 [facility] Comment on above: Performed By: #### C BC #### [facility] [address] [place] [address] Dr. Orlin Kellogg NEUT # 3.0 103/ul Normal 1.4-6.5 [facility] Comment on above: Performed By: #### C BC #### [facility] [address] [place] [address] Dr. Orlin Kellogg Neutrophils/100 WBC (Bld) 59.9 % Normal 43.0-75.0 [facility] Comment on above: Performed By: #### C BC #### [facility] [address] [place] [address] Dr. Orlin Kellogg Platelet mean volume (Bld) [Entitic vol] 8.4 fL Critically low 9.5-13.5 [facility] Comment on above: Performed By: #### C BC #### [facility] [address] [place] [address] Dr. Orlin Kellogg PLT 278 103/ul Normal 150-450 [facility] Comment on above: Performed By: #### C BC #### [facility] [address] [place] [address] Dr. Orlin Kellogg RBC 5.01 106/ul Normal 4.70-6.10 [facility] Comment on above: Performed By: #### C BC #### [facility] [address] [place] [address] Dr. Orlin Kellogg WBC 4.9 103/ul Normal 4.0-11.0 [facility] Comment on above: Performed By: #### C BC #### [facility] [address] [place] [address] Dr. Orlin Kellogg FERRITINon 04-17-2022 Ferritin [Mass/Vol] 304.0 ng/mL Normal 26.0-388.0 [facility] Comment on above: Performed By: #### V ITB12, FERR #### [facility] [address] [place] [address] Dr. Orlin Kellogg PROF 14(COMP METB)on 022 Albumin [Mass/Vol] 4.4 g/dL Normal 3.4-5.0 [facility] Comment on above: Performed By: #### C MP #### [facility] [address] [place] [address] Dr. Orlin Kellogg Albumin/Globulin [Mass ratio] 1.4 {ratio} Normal [facility] Comment on above: Performed By: #### C MP #### [facility] [address] [place] [address] Dr. Orlin Kellogg ALP [Catalytic activity/Vol] 33 U/L Critically low 46-116 [facility] Comment on above: Performed By: #### C MP #### [facility] [address] [address] [address] Orlin Kellogg ALT [Catalytic activity/Vol] 50 U/L Normal 16-63 [facility] Comment on above: Performed By: #### C MP #### [facility] [address] [address] [address] Orlin Kellogg Anion gap [Moles/Vol] 16.9 mmol/L Normal [facility] Comment on above: Performed By: #### C MP #### [facility] [address] [address] [address] Orlin Kellogg AST [Catalytic activity/Vol] 33 U/L Normal 15-37 [facility] Comment on above: Performed By: #### C MP #### [facility] [address] [place] [address] Dr. Orlin Kellogg Bilirubin [Mass/Vol] 0.3 mg/dL Normal 0.2-1.0 [facility] Comment on above: Performed By: #### C MP #### [facility] [address] [address] [address] Orlin Kellogg Calcium [Mass/Vol] 10.2 mg/dL Critically high 8.5-10.1 [facility] Comment on above: Performed By: #### C MP #### [facility] [address] [place] [address] Dr. Orlin Kellogg Chloride [Moles/Vol] 105 mmol/L Normal 98-107 [facility] Comment on above: Performed By: #### C MP #### [facility] [address] [address] [address] Orlin Kellogg CO2 [Moles/Vol] 22.7 mmol/L Normal 21.0-32.0 [facility] Comment on above: Performed By: #### C MP #### [facility] [address] [place] [address] Dr. Orlin Kellogg Creatinine [Mass/Vol] 1.40 mg/dL Critically high 0.70-1.30 [facility] Comment on above: Performed By: #### C MP #### [facility] [address] [address] [address] Orlin Kellogg EGFR-AF SIERRA LEONEAN 60 mL/min/1.73m2 Normal >=60 [facility] Comment on above: Performed By: #### C MP #### [facility] [address] [address] [address] Orlin Kellogg EGFR-NON AF SIERRA LEONEAN 50 mL/min/1.73m2 Critically low >=60 [facility] Comment on above: Performed By: #### C MP #### [facility] [address] [address] [address] Orlin Kellogg Globulin (S) [Mass/Vol] 3.1 g/dL Normal [facility] Comment on above: Performed By: #### C MP #### [facility] [address] [address] [address] Orlin Kellogg Glucose [Mass/Vol] 100 mg/dL Normal 74-106 [facility] Comment on above: Performed By: #### C MP #### [facility] [address] [address] [address] Orlin Kellogg Potassium [Moles/Vol] 4.6 mmol/L Normal 3.5-5.1 [facility] Comment on above: Performed By: #### C MP #### [facility] [address] [address] [address] Orlin Kellogg Protein [Mass/Vol] 7.5 g/dL Normal 6.4-8.2 [facility] Comment on above: Performed By: #### C MP #### [facility] [address] [address] [address] Orlin Kellogg Sodium [Moles/Vol] 140 mmol/L Normal 136-145 [facility] Comment on above: Performed By: #### C MP #### [facility] [address] [address] [address] Orlin Kellogg Urea nitrogen [Mass/Vol] 26.0 mg/dL Critically high 7.0-18.0 [facility] Comment on above: Performed By: #### C MP #### [facility] [address] [place] [address] Dr. Orlin Kellogg Urea nitrogen/Creatinine [Mass ratio] 18.6 mg/mg Normal [facility] Comment on above: Performed By: #### C MP #### [facility] [address] [place] [address] Dr. Orlin Kellogg VITAMIN B12on 04-17-2022 Cobalamin (Vitamin B12) [Mass/Vol] 697.0 pg/mL Normal 193.0-986.0 [facility] Comment on above: Performed By: #### V ITB12, FERR #### [facility] [address] [place] [address] Dr. Orlin Kellogg CBC AUTO DIFFon 02-10-2022 BASO # 0.0 103/ul Normal 0.0-0.1 [facility] Comment on above: Performed By: #### C BC #### [facility] [address] [place] [address] Dr. Orlin Kellogg Basophils/100 WBC (Bld) 0.5 % Normal 0.2-2.0 [facility] Comment on above: Performed By: #### C BC #### [facility] [address] [place] [address] Dr. Orlin Kellogg EO # 0.1 103/ul Normal 0.0-0.7 [facility] Comment on above: Performed By: #### C BC #### [facility] [address] [place] [address] Dr. Orlin Kellogg Eosinophils/100 WBC (Bld) 2.4 % Normal 0.9-7.0 [facility] Comment on above: Performed By: #### C BC #### [facility] [address] [place] [address] Dr. Orlin Kellogg Erythrocyte distribution width (RBC) [Ratio] 13.4 % Normal 11.0-15.0 [facility] Comment on above: Performed By: #### C BC #### [facility] [address] [place] [address] Dr. Orlin Kellogg Hematocrit (Bld) [Volume fraction] 41.0 % Critically low 42.0-54.0 [facility] Comment on above: Performed By: #### C BC #### [facility] [address] [address] [address] Orlin Kellogg Hemoglobin (Bld) [Mass/Vol] 13.8 g/dL Critically low 14.0-18.0 [facility] Comment on above: Performed By: #### C BC #### [facility] [address] [address] [address] Orlin Kellogg IG # 0.01 10e3/ul Normal 0.00-0.03 [facility] Comment on above: Performed By: #### C BC #### [facility] [address] [place] [address] Dr. Orlin Kellogg IG % 0.3 % Normal 0.0-0.5 [facility] Comment on above: Performed By: #### C BC #### [facility] [address] [place] [address] Dr. Orlin Kellogg LYMPH # 1.3 103/ul Normal 1.2-3.8 [facility] Comment on above: Performed By: #### C BC #### [facility] [address] [place] [address] Dr. Orlin Kellogg Lymphocytes/100 WBC (Bld) 35.3 % Normal 20.5-60.0 [facility] Comment on above: Performed By: #### C BC #### [facility] [address] [place] [address] Dr. Orlin Kellogg MANUAL DIFF REQ NO Normal [facility] Comment on above: Performed By: #### C BC #### [facility] [address] [place] [address] Dr. Orlin Kellogg MCH (RBC) [Entitic mass] 28.3 pg Normal 25.9-34.0 [facility] Comment on above: Performed By: #### C BC #### [facility] [address] [place] [address] Dr. Orlin Kellogg MCHC (RBC) [Mass/Vol] 33.7 g/dL Normal 29.9-35.2 [facility] Comment on above: Performed By: #### C BC #### [facility] [address] [address] [address] Orlin Kellogg MCV (RBC) [Entitic vol] 84.0 fL Normal 80.0-94.0 [facility] Comment on above: Performed By: #### C BC #### [facility] [address] [address] [address] Orlin Kellogg MONO # 0.3 103/ul Normal 0.3-0.8 [facility] Comment on above: Performed By: #### C BC #### [facility] [address] [address] [address] Orlin Kellogg Monocytes/100 WBC (Bld) 9.2 % Normal 1.7-12.0 [facility] Comment on above: Performed By: #### C BC #### [facility] [address] [place] [address] Dr. Orlin Kellogg NEUT # 1.9 103/ul Normal 1.4-6.5 [facility] Comment on above: Performed By: #### C BC #### [facility] [address] [place] [address] Dr. Orlin Kellogg Neutrophils/100 WBC (Bld) 52.3 % Normal 43.0-75.0 [facility] Comment on above: Performed By: #### C BC #### [facility] [address] [place] [address] Dr. Orlin Kellogg Platelet mean volume (Bld) [Entitic vol] 8.2 fL Critically low 9.5-13.5 [facility] Comment on above: Performed By: #### C BC #### [facility] [address] [place] [address] Dr. Orlin Kellogg PLT 224 103/ul Normal 150-450 [facility] Comment on above: Performed By: #### C BC #### [facility] [address] [place] [address] Dr. Orlin Kellogg RBC 4.88 106/ul Normal 4.70-6.10 [facility] Comment on above: Performed By: #### C BC #### [facility] [address] [address] [address] Orlin Kellogg WBC 3.7 103/ul Critically low 4.0-11.0 [facility] Comment on above: Performed By: #### C BC #### [facility] [address] [address] [address] Orlin Kellogg GLYCOHEMOGLOBIN A1Con 2021 ADA RECOMMENDATION SEE BELOW Normal [facility] Comment on above: Result Comment: ADA RECOMMENDED LIMIT 4.0 - 6.0 ADA THERAPEUTIC TARGET < 7.0 ACTION SUGGESTED > 7.0 Performed By: #### A 1C #### [facility] [address] [address] [address] Orlin Kellogg Glucose [Mass/Vol] 114 mg/dL Normal [facility] Comment on above: Performed By: #### A 1C #### [facility] [address] [place] [address] Dr. Orlin Kellogg HbA1c (Bld) [Mass fraction] 5.6 % Normal 4.5-6.2 [facility] Comment on above: Performed By: #### A 1C #### [facility] [address] [place] [address] Dr. Orlin Kellogg LIPID PROFILEon 02-10-2022 CHOL-HDL RATIO NORM SEE BELOW Normal [facility] Comment on above: Result Comment: 3.3 - 4.4 LOW RISK 4.4 - 7.1 AVERAGE RISK 7.1 - 11.0 MODERATE RISK >11.0 HIGH RISK Performed By: #### L IPID, CMP #### [facility] [address] [place] [address] Dr. Orlin Kellogg Cholesterol [Mass/Vol] 191 mg/dL Normal <=200 [facility] Comment on above: Performed By: #### L IPID, CMP #### [facility] [address] [place] [address] Dr. Orlin Kellogg Cholesterol in HDL [Mass/Vol] 28 mg/dL Critically low 40-60 [facility] Comment on above: Performed By: #### L IPID, CMP #### [facility] [address] [place] [address] Dr. Orlin Kellogg Cholesterol in LDL [Mass/Vol] 112.0 mg/dL Normal [facility] Comment on above: Performed By: #### L IPID, CMP #### [facility] [address] [address] [address] Oriln Kellogg Cholesterol.total/Ch olesterol in HDL [Mass ratio] 6.8 {ratio} Normal [facility] Comment on above: Performed By: #### L IPID, CMP #### [facility] [address] [address] [address] Orlin Kellogg HDL NORMAL > or = 60 mg/dl - LO W CARDIOVASCULAR RISK <40 mg/dl - HIGH CARDIOVASCULAR RISK Normal [facility] Comment on above: Performed By: #### L IPID, CMP #### [facility] [address] [place] [address] Dr. Orlin Kellogg LDL CALC NORMAL SEE BELOW Normal [facility] Comment on above: Result Comment: <100 mg/dl OPTIMAL 100 - 129 mg/dl NEAR OR ABOVE OPTIMAL 130 - 159 mg/dl BORDERLINE HIGH 160 - 189 mg/dl HIGH >190 mg/dl VERY HIGH Performed By: #### L IPID, CMP #### [facility] [address] [place] [address] Dr. Orlin Kellogg Triglyceride [Mass/Vol] 255 mg/dL Critically high <=150 [facility] Comment on above: Performed By: #### L IPID, CMP #### [facility] [address] [place] [address] Dr. Orlin Kellogg VLDL CALC 51.0 mg/dL Normal [facility] Comment on above: Performed By: #### L IPID, CMP #### [facility] [address] [address] [address] Orlin Kellogg PROF 14(COMP METB)on 022 Albumin [Mass/Vol] 4.2 g/dL Normal 3.4-5.0 [facility] Comment on above: Performed By: #### L IPID, CMP #### [facility] [address] [place] [address] Dr. Orlin Kellogg Albumin/Globulin [Mass ratio] 1.2 {ratio} Normal [facility] Comment on above: Performed By: #### L IPID, CMP #### [facility] [address] [place] [address] Dr. Orlin Kellogg ALP [Catalytic activity/Vol] 32 U/L Critically low 46-116 [facility] Comment on above: Performed By: #### L IPID, CMP #### [facility] [address] [address] Dr. Orlin Kellogg ALT [Catalytic activity/Vol] 91 U/L Critically high 16-63 [facility] Comment on above: Performed By: #### L IPID, CMP #### [facility] [address] [place] [address] Dr. Orlin Kellogg Anion gap [Moles/Vol] 13.7 mmol/L Normal [facility] Comment on above: Performed By: #### L IPID, CMP #### [facility] [address] [place] [address] Dr. Orlin Kellogg AST [Catalytic activity/Vol] 61 U/L Critically high 15-37 [facility] Comment on above: Performed By: #### L IPID, CMP #### [facility] [address] [place] [address] Dr. Orlin Klelogg Bilirubin [Mass/Vol] 0.5 mg/dL Normal 0.2-1.0 [facility] Comment on above: Performed By: #### L IPID, CMP #### [facility] [address] [place] [address] Dr. Orlin Kellogg Calcium [Mass/Vol] 10.1 mg/dL Normal 8.5-10.1 [facility] Comment on above: Performed By: #### L IPID, CMP #### [facility] [address] [place] [address] Dr. Orlin Kellogg Chloride [Moles/Vol] 105 mmol/L Normal 98-107 [facility] Comment on above: Performed By: #### L IPID, CMP #### [facility] [address] [place] [address] Dr. Orlin Kellogg CO2 [Moles/Vol] 28.0 mmol/L Normal 21.0-32.0 [facility] Comment on above: Performed By: #### L IPID, CMP #### [facility] [address] [address] [address] Orlin Kellogg Creatinine [Mass/Vol] 1.44 mg/dL Critically high 0.70-1.30 [facility] Comment on above: Performed By: #### L IPID, CMP #### [facility] [address] [address] [address] Orlin Kellogg EGFR-AF SIERRA LEONEAN 58 mL/min/1.73m2 Critically low >=60 [facility] Comment on above: Performed By: #### L IPID, CMP #### [facility] [address] [place] [address] Dr. Orlin Kellogg EGFR-NON AF SIERRA LEONEAN 48 mL/min/1.73m2 Critically low >=60 [facility] Comment on above: Performed By: #### L IPID, CMP #### [facility] [address] [place] [address] Dr. Orlin Kellogg Globulin (S) [Mass/Vol] 3.6 g/dL Normal [facility] Comment on above: Performed By: #### L IPID, CMP #### [facility] [address] [place] [address] Dr. Orlin Kellogg Glucose [Mass/Vol] 113 mg/dL Critically high 74-106 [facility] Comment on above: Performed By: #### L IPID, CMP #### [facility] [address] [place] [address] Dr. Orlin Kellogg Potassium [Moles/Vol] 4.7 mmol/L Normal 3.5-5.1 [facility] Comment on above: Performed By: #### L IPID, CMP #### [facility] [address] [place] [address] Dr. Orlin Kellogg Protein [Mass/Vol] 7.8 g/dL Normal 6.4-8.2 [facility] Comment on above: Performed By: #### L IPID, CMP #### [facility] [address] [id number] [address] Orlin Kellogg Sodium [Moles/Vol] 142 mmol/L Normal 136-145 [facility] Comment on above: Performed By: #### L IPID, CMP #### [facility] [address] [address] [address] Orlin Kellogg Urea nitrogen [Mass/Vol] 26.0 mg/dL Critically high 7.0-18.0 [facility] Comment on above: Performed By: #### L IPID, CMP #### [facility] [address] [address] [address] Orlin Kellogg Urea nitrogen/Creatinine [Mass ratio] 18.1 mg/mg Normal [facility] Comment on above: Performed By: #### L IPID, CMP #### [facility] [address] [address] [address] Orlin Kellogg MRI KNEE LT WO [...] by: OANH LEBRON Date: 2021-06-28 13:39 Normal [facility] Vital Signs Date Time Vital Sign Value Performing Clinician Facility 02-05-2024 10:23-0400 Blood Pressure Location FATOU SANTAMARIA [facility] 02-05-2024 10:23-0400 Diastolic blood pressure 76 mm[Hg] FATOU SANTAMARIA [facility] 02-05-2024 10:23-0400 Heart rate 80 /min FATOU SANTAMARIA [facility] 02-05-2024 10:23-0400 Respiratory rate 19 /min FATOU SANTAMARIA [facility] 02-05-2024 10:23-0400 Systolic blood pressure 150 mm[Hg] FATOU SANTAMARIA [facility] 03-16-2023 12:30-0400 Diastolic blood pressure 81 mm[Hg] MD Talia Prieto Work Phone: [facility] 03-16-2023 12:30-0400 Heart rate 61 /min MD Talia Prieto Work Phone: [facility] 03-16-2023 12:30-0400 Respiratory rate 16 /min MD Talia Prieto Work Phone: [facility] 03-16-2023 12:30-0400 SaO2% (BldA) [Mass fraction] 98 % MD Talia Prieto Work Phone: [facility] 03-16-2023 12:30-0400 Systolic blood pressure 147 mm[Hg] MD Talia Prieto Work Phone: [facility] 03-16-2023 12:00-0400 Inhaled oxygen flow rate 5 L/min MD Talia Prieto Work Phone: [facility] 03-16-2023 10:45-0400 Body height 182.88 cm MD Talia Prieto Work Phone: [facility] 03-16-2023 10:45-0400 Body weight 108.86 kg MD Talia Prieto Work Phone: [facility] 08-19-2022 15:40-0500 Body height 182.88 cm Monica Lor Other [facility] Other 08-19-2022 15:40-0500 Body mass index (BMI) [Ratio] 33.9 kg/m2 Monica Lor Other [facility] Other 08-19-2022 15:40-0500 Body temperature 96.2 [degF] Monica Ortegamond Other [facility] Other 08-19-2022 15:40-0500 Body weight 113.4 kg Monica Ortegamond Other [facility] Other 08-19-2022 15:40-0500 Respiratory rate 18 /min Monica Lor Other [facility] Other 08-19-2022 15:40-0500 SaO2% (BldA) [Mass fraction] 96 % Monica Lor Other [facility] Other Encounters Encounter Date Encounter Type Care Provider Facility Start: 07-21-2024 ambulatory Koffi Mendez ty:[facility] Start: 03-11-2024 End: 03-11-2024 ambulatory Koffi GUNTER Facility:[facility] Start: 03-11-2024 End: 03-11-2024 Patient encounter procedure Koffi GUNTER [facility] Start: 02-05-2024 End: 02-06-2024 ambulatory PA-C FATOU SANTAMARIA Facility:[facility] Start: 02-05-2024 End: 02-05-2024 Lab Drop off FATOU SANTAMARIA [facility] Start: 02-05-2024 End: 02-06-2024 ambulatory PA-C FATOU SANTAMARIA Facility:[facility] Start: 02-05-2024 End: 02-05-2024 Patient encounter procedure FATOU E ROSALIO [facility] Start: 10-17-2023 ambulatory PA-C FATOU SANTAMARIA [facility] [facility] Start: 10-15-2023 End: 10-15-2023 ambulatory Talia Prieto Other [facility] Other Start: 10-15-2023 Telephone encounter Talia Prieto [facility] Start: 05-28-2023 End: 05-28-2023 ambulatory Talia Prieto Other [facility] Other Start: 05-28-2023 Telephone encounter Talia Prieto [facility] Start: 03-16-2023 End: 03-16-2023 ambulatory Joe Portillo Facility:[facility] Start: 03-16-2023 End: 03-16-2023 Admission to same day surgery center MD Talia Prieto Work Phone: [facility] Work Phone: Start: 03-16-2023 End: 03-16-2023 ambulatory MD Talia Prieto Work Phone: [facility] Work Phone: Start: 01-17-2023 End: 01-17-2023 ambulatory Talia Prieto Other [facility] Other Start: 01-17-2023 Telephone encounter Talia Prieto [facility] Start: 08-19-2022 End: 08-19-2022 ambulatory Monica Horowitz Other [facility] Other Start: 08-19-2022 Office outpatient ne w 20 minutes Monica Horowitz [facility] [place] Start: 04-18-2022 Problem, abnormal examination Talia Prieto Other [facility] Other Start: 04-17-2022 End: 04-18-[address] TALAI PRIETO Facility:[facility] Start: 02-10-2022 End: 02-11-[address] TALIA PRIETO Facility:[facility] Start: 06-28-2021 End: 06-29-2021 ambulatory LATONIA ISBELL Facility:[facility] Procedures Date Procedure Procedure Detail Performing Clinician Start: 03-16-2023 Colonoscopy MD Talia Prieto Work Phone: Start: 02-10-[address] TALIA PRIETO Comment on above: Performed By: #### P [facility] #### [facility] [address] [place] [address] Dr. Orlin Kellogg Start: 08-28-2017 Laboratory test resu lt abnormal Talia Prieto Other Start: 06-29-2017 Screening for malign ant neoplasm of prostate Talia Prieto Other Colonoscopy FATOU SANTAMARIA Screening for malign ant neoplasm of prostate Talia Prieto Other Plan of Treatment Date Care Activity Detail Author Start: 03-16-2023 [facility] Patient Education Colon polyps [facility] Work Phone: Payers Date Payer Category Payer Medicare [id number] 2023 Self-pay [id number] 1959 Medicare [id number] 1959 Private Health Insurance [id number] 1950 Unknown [id number] 2.16.84 [id number] 1950 Unknown [id number] 2.16.84 [id number] 1950 Unknown [id number] 2.16.84 [id number] 1950 Unknown [id number] 2.16.8 [id number] 1950 Unknown [id number] 2.16.8 [id number] 1950 Unknown [id number] 2.16.8 [id number] 1950 Unknown [id number] 2.16.8 [id number] Medicare [id number] 2.1 [id number] Unknown [id number] 2.16.8 [id number] Social History Date Type Detail Facility Unknown if ever smoked [facility] Other Sex Assigned At [facility] Start: 03-16-2023 Tobacco smoking stat us ARIS Never smoked tobacco (finding) [facility] Start: 1950 Sex Assigned At Male F [facility] Start: 02-05-2024 Tobacco smoking status Ex-smoker (fi nding) [facility] Goals Date Patient Goal Desired Activity /State Functional Status Date Assessment Result Facility 02-05-2024 Functional Status N/A [facility] Clinical Notes 08-10-2021 to 03-11-2024 Note Date [...] Up Care 02/05/2024 12:36:26 With:Koffi GUNTER Address: [address] [place], [place] [id number] [facility] (1) When:07/12/2024 15:56:09 [facility] 03-11-2024 Note Patient Education Custom Cystoscopy ? [...] you have a fever over 100 degrees. [facility] 02-05-[address] Prieto referral [...] Contact Information ROSALIO AUSTIN, FATOU Jaimes, URL [address] [facility] [place] [address] [phone] Additional Instructions: sched cysto Patient Education Cystoscopy [...] Protein Urine Dipstick: Negative (02/05/24 10:31:00) Specific [place] Urine Dipstick: 1.020 (02/05/24 10:31:00) Urine Appearance Urine Dipstick: Clear (01/09 (more content not included)... [facility] Comment on above: Result Comment: Elec tronically Signed By: FATOU SANTAMARIA PA-C\.br\Date and Time Signed: 02/05/24 11:24 EDT\.br\Electronically Co-Signed By: Mandy Persaud\.br\Date and Time Co-Signed: 02/05/24 11:18 EDT 02-05-2024 [facility] Discharg e instructions Patient Education 02/05/2024 [...] including vitamins, herbs, eye drops, creams, and sdbz-nfw-dbfzeok medicines. Any problems you or family members [...] provider tells you to take them. Taking fkam-vqk-ajhcmva medicines, vitamins, herbs, and supplements. Tests You [...] Follow these instructions at home: Medicines Take mtog-nca-iieywan and prescription medicines only as told by [...] provider. Document Revised: 05/10/2022 Document Reviewed: 04/08/2021 [employer] Patient Education 2022 [employer]. Follow Up Care 10/18/2023 09:33:39 With:FATOU SANTAMARIA PA-C, URL Address: [address] [place] [address] [phone] When: Unknown [facility] 02-05-2024 Note Urology Cystoscopy Cystoscopy is a [...] including vitamins, herbs, eye drops, creams, and kkef-wky-watrzcv medicines. ? Any problems you or family [...] tells you to take them. ? Taking hzzo-rer-eogbrfl medicines, vitamins, herbs, and supplements. Tests You [...] these instructions at home: Medicines ? Take tjtu-ybd-jvpikdq and prescription medicines only as told by [...] the department th (more content not included)... [facility] 03-16-2023 Procedure note [facility] 08-19-2022 Evaluation note Encounter Date Diagnosis Assessment Notes Aug, Cough (ICD-10 - R05.9) Aug, Influenza A (ICD-10 - J10.1) Influenza: adult home care material was printed Drink plenty of fluids, get plenty of rest. Take Tylenol or Motrin as needed for aches pains or fevers. You must quarantine until Sunday. Follow-up with your family physician in 2 to 3 days if no improve [facility] Other 12-01-2021 History general Narrative - Reported* [...] Status : Active, Hospitalization History See Above [facility] Other Evaluation + Plan note Future Appointments Appointment Date:02/26/2024 08:00:00 AM Scheduled Provider: Location:[facility] Appointment Type:Urology CALL PAT FT Appointment Date:03/11/2024 03:30:00 PM Scheduled Provider: Location:[facility] Appointment Type:Urology FT [facility] evaluation + Plan note Future Appointments Appointment Date:07/21/2024 01:15:00 PM Scheduled Provider:Koffi GUNTER MD [facility] Information[facility] Other Evaluation noteNo assessment information available [facility] Work Phone: History and physical note Author Joe Portillo [facility] March 16, 2023 11:44am Note Date/Time March 16, 2023 11:44 am [facility] [address] [place] [address] Gastroenterology H&P Signed Patient: Haider Bledsoe MR#: [id number] : 1950 Acct:[id number] Age/Sex: 72 / M Adm Date: 3 Loc: Room: Type: [facility] Attending Dr: Joe Portillo MD Copies to: [...] signed by Joe Portillo MD> 03/16/23 1144 [facility] Work Phone: History general Narrative - Reported* Type Description Date Medical History hypertension Surgical History colonoscopy Hospitalization History See Above [facility] Other Hospital course Narrative No data available for this section [facility] Hospital Discharge instructions Additional Instructions DISCHARGE INSTRUCTIONS [...] years. -Follow up with PCP. -Office number [phone].[facility] Work Phone: Hospital Discharge instructions No data available for this section [facility] data available for this section [facility] Summary Purpose Family History No Family History [...] and content) DATE CREATED AUTHOR 04/19/2022 [facility] DATE CREATED AUTHOR AUTHOR'S ORGANIZ ATION 03/23/2023 [facility] DATE CREATED AUTHOR AUTHOR'S ORGANIZ ATION 02/06/2024 [facility] DATE CREATED AUTHOR AUTHOR'S ORGANIZ ATION 03/13/2024 [facility] REASON FOR VISIT (unrecogniz ed section and [...] BE BASED ON THE PRIMARY CLINICAL RECORDS. [facility] [employer] [facility]. provides no warranty or guarantee of the accuracy or completeness of information in this document.
[2024-05-17 11:02] LABS: Alanine Aminotransferase 30 U/L (16-63); Albumin Globulin Ratio 1.2; Alkaline Phosphatase 33 U/L (46-116); Anion Gap 10.7; Aspartate Amino Transferase 22 U/L (15-37); Bilirubin Total 0.5 mg/dL (0.2-1.0); Carbon Dioxide 29.2 mmol/L (21.0-32.0); Chloride 103 mmol/L (98-107); Chol HDL Ratio 4.8; Cholesterol 186 mg/dL (<=200); Estimated GFR (African America 55 (>=60); Estimated GFR (Non-African Ame 46 (>=60); Globulin 3.3 g/dL; Glucose 111 mg/dL (74-106); HDL Cholesterol 39 mg/dL (40-60); Potassium 4.9 mmol/L (3.5-5.1); Sodium 138 mmol/L (136-145); Total Protein 7.3 g/dL (6.4-8.2); Triglycerides 148 mg/dL (<=150); VLDL CHOLESTEROL 29.6 mg/dL
== END 2024-05-17 09:59 | disposition home or self-care (01) ==
LOC: LAB 09:58
PROVIDERS: PCP Family Medicine; Visit Provider Family Medicine
DX: E78.5 Hyperlipidemia, unspecified (principal); I10 Essential (primary) hypertension
CPT/HCPCS: 36415; 80053; 80061

== ENCOUNTER 2025-05-15 15:17 | Outpatient (OUT) | payer MEDICARE, OTHER, SELFPAY ==
--- OUTSIDE RECORDS SUMMARY | 2025-05-15 15:29 | XMS_ITS | CCD ---
Author Organization [facility] Care Team Providers Care Trim Carpenter Name Role Phone CONNER, DR TALIA Jaimes Admitting Unavailable PRIETO, DR TALIA Jaimes Attending Unavailable CONNER, DR TALIA Jaimes Primary Care Unavailable CONNER, DR TALIA Jaimes Consulting Unavailable APLINGLATONIA Admitting Unavailable APLLATONIA FRENCH Attending Unavailable CONNER, DR TALIA Jaimes Primary Care Unavailable ZIEBER, DR OANH Savage Consulting Unavailable APLING, LATONIA Shaffer Consulting Unavailable CONNER, DR TALIA Jaimes Admitting Unavailable CONNER, DR TALIA Jaimes Attending Unavailable CONNER, DR TALIA Jaimes Referring Unavailable CONNER, DR TALIA Jaimes Primary Care Unavailable CONNER, DR TALIA Jaimes Consulting Unavailable Monica Horowitz Unavailable Talia Prieto Unavailable MD Talia Prieto Primary Care Provider MD Joe Portillo Attending Provider [phone] Joe Portillo Attending Unavailable Joe Portillo Admitting Unavailable Talia Prieto Primary Care Unavailable TALIA PRIETO Primary Care Physician GEOVANNA SANTAMARIA Attending Unavailab GEOVANNA Sung Admitting Unavailab GEOVANNA Sung Attending Unavailab TALIA Ordonez Referring Unavailable GEOVANNA SANTAMARIA Admitting Unavailab GEOVANNA Sung Attending Unavailab le Unavailable Primary Care Provider UnavailTalia Zhu MD Primary Care Provider Koffi FONSECA Attending Unavailable Koffi FONSECA Attending Unavailable Koffi FONSECA Attending Unavailable Koffi FONSECA Referring Unavailable Koffi FONSECA Admitting Unavailable GOPAL ABDI Referring Unavailable TALIA PRIETO Primary Care Unavailable Talia Prieto MD Primary Care Provider Talia Prieto MD Attending Provider [phone] Allergies Allergy Classification Reported Allergen(s) Allergy Type Date of Onset Reaction(s) Facility (10 sources) Sulfamethoxazole / Trimethoprim; Translations: [sulfamethoxazole-t rimethoprim] Drug Allergy 07-28-20 21 Ear problem (finding), Other (See Comments) [facility] (2 sources) Sulfamethoxazole; Translations: [sulfamethoxazole] Drug Allergy 03-16-20 23 Unknown Reaction [facility] (2 sources) Trimethoprim; Translations: [trimethoprim] Drug Allergy 03-16-20 23 Unknown Reaction [facility] (2 sources) Allergies Reconciled Propensity to adverse reactions Unknown Daptiv Other (2 sources) Sulfamethoxazole / Trimethoprim; Translations: [Bactrim] Drug Allergy [facility] Repository Medications Current Medications Medication Drug Class(es) Dates Sig (Normalized) Sig (Original) Cetirizine (8 sources) Histamine-1 Receptor Antagonist Start: 02-05-2024 cetirizine Start Date: 02/05/24 Status: Ordered Repeat number: 1 Start: 02-05-2024 cetirizine Sta rt Date: 02/05/24 Status: Ordered Start: 09-11-2017 End: 05-12-2025 Cetirizine 10 mg Tablet,Disintegrating Discontinued 10 MG PO As Directed September 11, 2017 1:00am May 12, 2025 11:42am [facility] diphenhydrAMINE (3 sources) Histamine-1 Receptor Antagonist [facility] Allergy Active dutasteride 0.5 mg oral capsule (5 sources) 5-alpha Reductase Inhibitor Start: 05-12-20 25 take 1 capsule by mouth once daily Dutasteride 0.5 mg capsule Active 0.5 MG PO Daily May 12, 2025 12:00am Complies with drug therapy Start: 03-11-2024 take 1 capsule by mo [facility] once daily dutasteride 0.5 mg Cap 0.5 mg = 1 cap(s), Oral, Daily, # 90 cap(s), Refills(s) 3, Pharmacy: [id number], 182, cm, 02/05/24 10:43:00 EDT, Height/Length Dosing, 102.5, kg, 02/05/24 10:43:00 EDT, Weight Dosing Start Date: 03/11/24 Status: Ordered Quantity: 90.0 Unit: cap(s) Repeat number: 4 fenofibrate 160 mg oral tablet (17 sources) Peroxisome Proliferator Receptor alpha Agonist Start: 09-11-2017 End: 04-28-2025 take 1 tablet by mouth once daily Fenofibrate 160 mg tablet Active 160 MG PO Daily April 28, 2025 3:25pm Complies with drug therapy Fenofibrate Acti ve lisinopril 10 mg oral tablet (20 sources) Angiotensin Converting Enzyme Inhibitor Start: 10-17-2024 End: 01-12-2025 take 1 tablet by mouth once daily Lisinopril 10 mg tablet Active 0 .ROUTE .COMPLEX January 12, 2025 4:06pm Take 1 tablet by mouth once daily Complies with drug therapy Start: 05-06-2024 End: 10-17-2024 take 1 tablet by mouth once daily Lisinopril 10 mg tablet Discontinued 10 MG PO Daily May 06, 2024 1:18pm October 17, 2024 9:37am Start: 05-01-2024 End: 05-06-2024 take 1 tablet by mouth once daily Lisinopril 10 mg tablet Discontinued 0 .ROUTE .COMPLEX May 01, 2024 6:53am May 06, 2024 1:19pm Take 1 tablet by mouth once daily Start: 09-11-2017 End: 05-01-2024 take 1 tablet by mouth once daily Lisinopril 10 mg tablet Discontinued 10 MG PO Daily April 18, 2024 11:59am May 01, 2024 6:53am Start: 09-11-2017 End: 04-18-2024 take 1 tablet by mouth once daily Lisinopril 20 mg tablet Discontinued 20 MG PO Daily April 07, 2024 2:16pm April 18, 2024 11:59am Lisinopril Activ e Multivitamin preparation (1 source) Start: 09-11-2017 take 1 tablet by mouth once daily Multivitamin Active 1 TAB PO Daily September 11, 2017 1:00am Multivitamin Tablet (1 source) Start: 09-11-2017 take 1 tablet by mouth once daily Multivitamin Tablet Active 1 TAB PO Daily September 11, 2017 1:00am Complies with drug therapy solifenacin succinate 10 mg oral tablet (1 source) Cholinergic Muscarinic Antagonist Start: 01-19-2025 take 1 tablet by mouth once daily solifenacin (VESICARE) 10 MG tablet Take 1 tablet by mouth daily 30 tablet 3 01/19/2025 Active tamsulosin hydrochloride 0.4 mg oral capsule (10 sources) alpha-Adrenergic Christa Start: 03-11-2024 End: 05-12-2025 take 1 capsule by mouth twice daily Tamsulosin 0.4 mg capsule Active 0.4 MG PO Twice daily May 12, 2025 12:02pm Complies with drug therapy Start: 02-05-2024 take 1 capsule by [facility] once daily tamsulosin 0.4 mg Cap 0.4 mg = 1 cap(s), Oral, Daily, # 90 caplet(s), Refills(s) 3, Pharmacy: [id number], 182, cm, 02/05/24 10:43:00 EDT, Height/Length Dosing, 102.5, kg, 02/05/24 10:43:00 EDT, Weight Dosing Start Date: 03/11/24 Status: Ordered Quantity: 90.0 Unit: caplet(s) Repeat number: 4 Start: 10-15-2023 take 1 capsule by [facility] every twenty-four hours Flomax 0.4 MG 1 capsule Orally Once a day for 30 day(s) Oct, Active Triglyceride (3 sources) Triglyceride Act trinidad Completed/Discontinued Medications Medication Drug Class(es) Dates Sig (Normalized) Sig (Original) ciprofloxacin 500 mg oral tablet (4 sources) Quinolone Antimicrobial Start: 02-05-2024 take 1 tablet by mouth once daily Cipro 500 mg Tab 500 mg = 1 tab(s), Oral, Daily, take one tab day before procedure and one tab after procedure, # 2 tab(s), Refills(s) 0, Pharmacy: [id number], 182, cm, 02/05/24 [...] [Anemia, unspecified] Episodic Disorders of lipid metabolism (10 sources) Pure hyperglyceridemia; Translations: [Pure hyperglyceridemia] Onset: 12-26-2013 Chronic Essential hypertension (12 sources) Essential (primary) hypertension; Translations: [Essential hypertension] Onset: 12-26-2013 01-31-2024 Chronic Genitourinary symptoms and ill-defined conditions (1 source) Increased frequency of urination; Translations: [Frequency of micturition] Onset: 02-05-2024 Episodic Glaucoma (2 sources) Glaucoma; Translations: [Unspecified glaucoma] Onset: 06-29-2017 Chronic Hyperplasia of prostate (7 sources) Benign prostatic hypertrophy with outflow obstruction; [...] hearing loss, bilateral] Onset: 04-03-2018 Chronic Other ear and sense organ disorders (2 sources) Bilateral hearing loss; Translations: [Unspecified hearing loss, bilateral] 06-04-2024 Chronic Other gastrointestinal disorders (2 sources) Occult blood in stools; Translations: [Other fecal abnormalities] 09-11-2017 Episodic Comment on above: Problem List clean-u p per request of Phys. EHR Cmte Other nutritional; endocrine; and metabolic disorders (2 [...] conditions (not mental disorders or infectious disease) (5 sources) Encounter for screening for malignant neoplasm of prostate; Translations: [Screening for malignant neoplasm done] Onset: 02-16-2022 Episodic Other upper respiratory disease (2 sources) Seasonal allergic rhinitis; Translations: [Other seasonal allergic rhinitis] Onset: 12-26-2013 Chronic Unclassified (1 source) Encounter for screening for malignant neoplasm of colon; Translations: [Encounter for screening for malignant neoplasm of colon] Onset: 03-16-2023 Unclassified (5 sources) Patient encounter status 02-05-2024 Past or Other Problems Problem Classification Problem Date Documented Date Episodic/Chronic Diabetes mellitus without complication (8 sources) Prediabetes; Translations: [Prediabetes] Onset: 02-16-2022 01-31-2024 Episodic Disorders of teeth and jaw (2 sources) Temporomandibular joint disorder; Translations: [Other specified temporomandibular joint disorders] Onset: 05-07-2018 Episodic Other aftercare (2 sources) Long-term current use of drug therapy; Translations: [Other local [employer] (current) drug therapy] Onset: 02-04-2015 Episodic Other [...] Test Name Value Interpretation Reference Range Facility PSA, Screeningon 01-20-2025 Prostatic Spec. Ag 1.08 ng/mL Normal 0.00-4.00 [facility] Comment on above: Result Comment: The Sunil ECLIA assay is used. Results obtained with different assay methods cannot be used interchangeably. Performed By: #### P SAS #### [facility] [address] [place] [address] Licensed And Certified Midwife: Oleg Segundo MD Ambulatory Visit Summaryon 1 09-20-2023 Ambulatory Visit Summary Ambulatory Visit Summary HAIDER BLEDSOE :1950 Visit Date:07/21/2024 Ambulatory Visit Instructions Your Diagnosis BPH with obstruction/lower urinary tract symptoms Screening PSA (prostate specific antigen) Your Care Team Attending Physician - Koffi FONSECA MD Primary Care Physician - TALIA PRIETO MD This Is Your Medications List dutasteride (dutasteride 0.5 mg Cap) tamsulosin (tamsulosin 0.4 mg Cap) Contact prescribing physician if questions or concerns cetirizine fenofibrate (fenofibrate 160 mg oral tablet) lisinopril (lisinopril 10 mg Tab) [Image Removed: STOP]Stop taking these medications ciprofloxacin (Cipro 500 mg Tab) Procedures Performed Colonoscopy. Discharge Vitals Heart Rate (Peripheral) 83 Respiratory Rate 18 Blood Pressure 153/74 Height 182 cm Height 72 in Weight 102 kg Weight 224.871 lb BMI 30.79 What to do next Scheduled Follow-Up Appointments Sunday. 2024 11:30 AM EDT With: Koffi FONSECA MD Where: [facility] [address] [place] [address]- You Need to Schedule the Following Appointments Follow Up with Koffi FONSECA MD, URL When: Comments: 6 mos w/ PSA Where: [facility] [address] , [place] [address]- [phone] Medications What How Much When Instructions Changed tamsulosin (tamsulosin 0.4 mg Cap) 1 Capsules By Mouth Every day Unchanged dutasteride (dutasteride 0.5 mg Cap) 1 Capsules By Mouth Every day Unchanged cetirizine Contact prescribing physician if questions or concerns Unchanged fenofibrate (fenofibrate 160 mg oral tablet) Oral, 0 Refill(s) Contact prescribing physician if questions or concerns Unchanged lisinopril (lisinopril 10 mg Tab) Oral, 0 Refill(s) Contact prescribing physician if questions or concerns What How Much When Comments Stop Taking ciprofloxacin (Cipro 500 mg Tab) 1 Tablets By Mouth Every day take one tab day before procedure and one tab after procedure Allergies Bactrim (Ear problem) Problems Ongoing - [...] choosing us for your care. Education Materials Benign Prostatic Hyperplasia Benign prostatic hyperplasia (BPH) is an enlarged prostate gland that is caused by the normal aging process. The prostate may get bigger as a man gets older. The condition is not caused by cancer. The prostate is a walnut-sized gland that is involved in the production of semen. It is located in front of the rectum and below the bladder. The bladder stores urine. The urethra carries stored urine out of the body. An enlarged prostate can press on the urethra. This can make it harder to pass urine. The buildup of urine in the bladder can cause infection. Back pressure and infection may progress to bladder damage and kidney (renal) failure. What are the causes? This condition is part of the normal aging process. However, not all men develop problems from this condition. If the prostate enlarges away from the urethra, urine flow will not be blocked. If it enlarges toward the urethra and compresses it, there will be problems passing urine. What increases the risk? This condition is more likely to develop in men older than 50 years. What are the signs or symptoms? Symptoms of this condition include: ??? Getting up often during the night to urinate. ??? Needing to urinate frequently during the day. ??? Difficulty starting urine flow. ??? Decrease in size and strength of your urine stream. ??? Leaking (dribbling) after urinating. ??? Inability to pass urine. This needs immediate treatment. ??? Inability to completely empty your bladder. ??? Pain when you pass urine. This is more common if there is also an infection. ??? Urinary tract infection (UTI). How is this diagnosed? This condition is diagnosed based on your medical history, a physical exam, and your symptoms. Tests will also be done, such as: ??? A post-void bladder scan. This measures any amount of urine that may remain in your bladder after you finish urinating. ??? A digital rectal exam. In a rectal exam, your health care provider checks your prostate by putting a lubricated, gloved finger into your rectum to feel the back of your prostate gland. This exam detects the size of your gland and any abnormal lumps or growths. ??? An exam of your urine (urinalysis). ??? A prostate specific antigen (PSA) screening. This is a blood test used to screen for prostate cancer. ??? (more content not included)... Normal [facility] Urology Office/Clinic Noteon 07-21-2024 Urology Office/Clinic Note Urology Office/Clinic Note Chief Complaint f/u cysto HPI Staff 73 yo male here for f/up to cysto. Seen as a new patient by Razia Santamaria PA-C 02/05/24. Previous dx: urinary frequency, BPH w LUTS, screening PSA. S/p cysto 03/11/24 ~Flomax increased to bid. Pt started on Dutasteride 0.5mg qd. Dysuria: denies Incomplete bladder emptying: denies Hematuria: denies Frequency: about every hour Urgency: denies Nocturia: gets up almost every hour Stream: good stream Leaking: denies Post void dripping: denies Wearing pads/ Depends: denies Urge incontinence: denies Stress incontinence: denies Incontinence without Sensory Awareness: denies Abdominal pain: denies Flank pain: denies Sexual complaints: denies History of Present Illness Tests reviewed: reviewed UA, operative report I have reviewed the previous health record information and history for this patient from Dr. Fonseca and MALCOM Tan. I have reviewed and verified the staff HPI to be accurate for this encounter. Review of Systems PHQ Score Initial Depression Screen Score: 0 SCORE ROS - Provider Constitutional: denies weight loss, denies hot flashes. Eyes: denies eye problems. Gastrointestinal: denies nausea, denies vomiting. Cardiovascular: denies chest pain or angina. Integumentary: no dryness Musculoskeletal: denies musculoskeletal symptoms. ENMT: denies otolaryngeal symptoms. Respiratory: no shortness of breath. Heme/Lymph: denies easy bleeding tendency, denies easy bruising tendency. Psychiatric: no confusion, no anxiety. Genitourinary: See HPI. Physical Exam Vitals & Measurements HR: 83(Peripheral) RR: 18 BP: 153/74 HT: 72 in HT: 182 cm WT: 102 kg WT: 224.871 lb BMI: 30.79 General Appearance: alert, no distress, well nourished, well developed male. Assessment/Plan 1. BPH with obstruction/lower urinary tract symptoms (N40.1: Benign prostatic hyperplasia with lower urinary tract symptoms) PVR 02/05/24 - 96 mL. S/p Cysto 03/11/24 - Obstructing coapting lateral lobe of prostate. Open diverticuli diffusely. UA today negative for blood and infection. Increased Flomax 0.4mg to bid and started on Dutasteride 0.5mg qd at time of cysto. States he has been up every hour at night since taking increased dosage of Flomax. Advised pt to stop taking nighttime dosage of Flomax as this is a SE. Denies any leakage, able to make it to the bathroom. Feels overall urinary habits are well-controlled. -Decrease Flomax 0.4mg to qAM -Cont Dutasteride 0.5mg qd. Call for refills. 2. Screening PSA (prostate specific antigen) (Z12.5: Encounter for screening for malignant neoplasm of prostate) PSA 16- 3.08 06/29/17- 3.10 05/07/19- 2.86 02/10/22- 3.06 10/12/23- 3.63 PCP was checking PSA. -F/u in 6 mos w/ PSA (pt will have been Dutasteride >6 mos) Follow-up With When Contact Information JANI ARREDONDO, Koffi R, URL [facility] [address], [place] [address]- [phone] Additional Instructions: 6 mos w/ PSA Patient Education Benign Prostatic Hyperplasia I, Mandy Persaud, personally scribed for Dr. Fonseca on 07/21/2024 14:44:30. . Documentation recorded by the scribe, Mandy Persaud, accurately reflects the services(s) I performed and decisions made by me. Authenticated by Dr. Fonseca on 07/21/2024 14:47:12. Problem List/Past Medical History Ongoing BPH with obstruction/lower urinary tract symptoms Essential hypertension Prediabetes Screening PSA (prostate specific antigen) Historical No qualifying data Procedure/Surgical History Colonoscopy. Medications cetirizine Cipro 500 mg Tab, 500 mg= 1 tab(s), Oral, Daily dutasteride 0.5 mg Cap, 0.5 mg= 1 cap(s), Oral, Daily, 3 refills fenofibrate 160 mg oral tablet lisinopril 10 mg Tab tamsulosin 0.4 mg Cap, 0.4 mg= 1 cap(s), Oral, Daily, 11 refills tamsulosin 0.4 mg Cap, 0.4 mg= 1 cap(s), Oral, BID, 3 refills Allergies Bactrim (Ear problem) Social History Alcohol - Denies Alcohol Use, 02/05/2024 Never., 07/21/2024 Substance Abuse Never., 07/21/2024 Tobacco Former smoker, quit more than 30 days ago Tobacco Use:. Never Smokeless Tobacco Use:., 07/21/2024 Immunizations Vaccine Date Status Comments SARS-CoV-2 (COVID-19) [id number] 05/30/2022 Recorded SARSCoV2 mRNA(ykofbwmki-qbsp-f ucros) vac 12/22/2021 Recorded SARS-CoV-2 (COVID-19) mRNA BNT-162b2 vax 06/16/2021 Recorded SARS-CoV-2 (COVID-19) mRNA BNT-162b2 vax 11/08/2020 Recorded 2024-07-21: [id number] SARS-CoV-2 (COVID-19) mRNA BNT-162b2 vax 10/18/2020 Recorded 2024-07-21: [id number] Lab Results Ambulatory Point of Care Results Bilirubin Urine Dipstick: Negative (07/21/24 13:34:00) Blood Urine Dipstick: Negative (07/21/24 13:34:00) Glucose Urine Dipstick: Negative (07/21/24 13:34:00) Ketones Urine Dipstick: Negative (07/21/24 13:34:00) Leukocytes Urine Dipstick: Negative (07/21/24 13:34:00) Nitrite Urine (more content not included)... Normal [facility] Comment on above: Result Comment: Elec tronically Signed By: Koffi FONSECA MD\.br\Date and Time Signed: 07/21/24 14:47 EST\.br\Electronically Co-Signed By: Mandy Persaud\.br\Date and Time Co-Signed: 07/21/24 14:44 EST Main OR Intraoperative Recor don 03-11-2024 Main OR Intraoperative Record Main OR Intraoperative Record IntraOp Document Type FTURO Summary Primary Physician: Koffi FONSECA MD Finalized Date/Time: 03/11/24 15:56:06 Pt. Name: HAIDER BLEDSOE/Sex: 1950 Male Med Rec #: [id number] Physician: Koffi FONSECA MD Financial #: [id number] Pt. Type: O Room/Bed: / Admit/Disch: 03/11/24 14:44:13 - Institution: Case Times FTURO Entry 1 Patient Times In Room 03/11/24 15:45:00 Out Room 03/11/24 15:54:00 Procedure Times Start 03/11/24 15:49:00 Stop 03/11/24 15:53:00 Anesthesia Times Last Modified By: Eliza Andrade 03/11/24 15:54:34 Case Attendance FTURO Entry 1 Entry 2 Entry 3 Case Attendee Koffi FONSECA MD, Kendall R Burgderfer, Kelsie E Role Performed Surgeon - Primary Scrub - Primary Ladle Cleaner - Primary Time In 03/11/24 15:45:00 03/11/24 [...] LOCAL Primary Procedure Yes Primary Surgeon Koffi FONSECA MD Start 03/11/24 15:49:00 Stop 03/11/24 15:53:00 [...] Position Verified Availability Equipment, Medication Time Out Koffi FONSECA MD, Verified (If Participants Shahram Edwards, Applicable) Eliza [...] 03/11/24 15:54 Eliza Andrade 03/11/24 15:56 Normal [facility] Main OR Preoperative Recordo n 03-11-2024 Main OR Preoperative Record Main OR Preoperative Record Holding Area Document Type FTURO Summary Primary Physician: Koffi FONSECA MD Finalized Date/Time: 03/11/24 15:26:16 Pt. Name: HAIDER BLEDSOE/Sex: 1950 Male Med Rec #: [id number] Physician: Koffi FONSECA MD Financial #: [id number] Pt. Type: O Room/Bed: / Admit/Disch: 03/11/24 14:44:13 - Institution: Case Times Holding FTURO Pre-Care Text: Verifies consent for planned procedure, identifies individual values and wishes concerning care, includes family members in perioperative teaching Secures patient's records' belongings, and valuables, maintains patient's dignity and privacy, and maintains patient confidentiality Entry 1 In Holding 03/11/24 15:19:00 Outcomes Met? Yes Last Modified By: Maurice RN, ALEXUSJacki HORNER 03/11/24 15:19:41 Post-Care Text: The patient participates [...] MARCELINA Richards RN, Ruthann 03/11/24 15:26 Normal [facility] Operative Reporton Operative Report Operative Report Patient: HAIDER BLEDSOE Age: 73 years Sex: Male : 1950 Associated Diagnoses: None Author: Koffi FONSECA MD Procedure Operative Information Details: Date/ Time: [...] be in 4 months for reevaluation.. Normal [facility] Comment on above: Result Comment: Elec tronically Signed By: JANI ARREDONDO, Koffi Rodriguez.deedee\Date and Time Signed: 03/11/24 15:58 EDT PSA Totalon 02-07-2024 Prostate specific Ag [Mass/Vol] see comment Invalid Interpretation Code 0.1-3.5 [facility] Comment on above: Result Comment: Per Farzana Disla, specimen was incorrectly labeled at [facility] office with patient label Haider Bledsoe. The correct patient is Diony Nguyễn. Diony Nguyễn will be redrawn and re-ordered at a different time. Nabil will be creditied by LARRY 02/07/2024 15:21:21 EDT dc The concentration of PSA determined by different manufacturers can vary due to differences in assay methods and reagent specificity. Values obtained from different assay methods cannot be used interchangeably. The methodology used for this result was chemiluminescence using [employer]'s Access Hybritech PSA reagent. The concentration of PSA determined by different manufacturers can vary due to differences in assay methods and reagent specificity. Values obtained from different assay methods cannot be used interchangeably. The methodology used for this result was chemiluminescence using [employer] [place]'s Access Hybritech PSA reagent. Performed By: #### 1 [id number] #### [facility] [address] [place] [address] PSA Totalon 02-06-2024 Prostate specific Ag [Mass/Vol] 6.6 ng/mL High 0.1-3.5 [facility] Comment on above: Result Comment: The concentration of PSA determined by different manufacturers can vary due to differences in assay methods and reagent specificity. Values obtained from different assay methods cannot be used interchangeably. The methodology used for this result was chemiluminescence using [employer] [place]'s Access Hybritech PSA reagent. Performed By: #### 1 [id number] #### [facility] [address] [place] [address] Physician Referralon 024 Physician Referral [id number] Normal [facility] Screenson 02-06-2024 Screens [id number] .00TIFF Normal [facility] Ambulatory Visit Summaryon 0 02-05-2024 [...] FATOU SANTAMARIA PA-C, URL When: Where: [address] [place] [id number] Medications What When Instructions Unchanged cetirizine Unchanged [...] including vitamins, herbs, eye drops, creams, and [id number] medicines. ? Any problems you or family [...] tells you to take them. ? Taking myvp-fju-irhwraf medicines, vitamins, herbs, and supplements. Tests You [...] will b (more content not included)... Normal [facility] CHEMISTRYOrdered By: SYSTEM SYSTEM on 02-05-2024 Prostate specific Ag [Mass/Vol] 6.6 ng/mL High 0.1 - 3.5 ng/mL [facility] Comment on above: Interpretive Data: T he concentration of PSA determined by different manufacturers can vary due to differences in assay methods and reagent specificity. Values obtained from different assay methods cannot be used interchangeably. The methodology used for this result was chemiluminescence using [employer]'s Access Hybritech PSA reagent. Jacek 03-16-2023 L - -------- Specimen: [id number] Received: 03/16/23 Status: GINETTE Alfonso Num: [id number] Spec Type: Surgical Subm Dr: Joe Portillo MD Tissues: A Colon Biopsy (DESC COL POLYP) Procedures: HE/2, Gross/Micro L4 -------- Age/ Patient Sex Location Account Attending Physician -------- Haider Bledsoe 72/M [id number] Joe Portillo MD -------- SPEC NUM: [id number] RECD: 03/16/23 STATUS: GINETTE HAMILTON NUM: [id number] JAKY: 03/16/23 [facility] DR: Joe Portillo MD ENTERED: 03/16/[address] [facility] [address]: REZA TYPE: Surgical DEPT: S ENTERED BY: [id number] RECV BY: [id number] ORDERED: HE/2, Gross/Micro L4 ORDERED: HE/2, Gross/Micro [...] microscopic examination confirms the diagnosis. CPT Codes 25958 -------- -------- Specimen: [id number] Received: 03/16/23 Status: GINETTE Hamilton Num: [id number] Spec Type: Surgical Subm Dr: Joe Portillo MD Tissues: A Colon Biopsy (DESC COL POLYP) Procedures: HE/Harish, Gross/Micro L4 -------- Patient: Haider Bledsoe [id number] (Continued) -------- Signed (signature on file) Diony Triplett MD 03/19/23 2176 [facility] COVID + FLU Quick Testingon 08-19-2022 SARS-CoV-2 (COVID-19) RNA MELANIA+probe Ql (Unsp spec) Negative [employer] Other COVID + FLU Quick Testing Positive [employer] Other COVID + FLU Quick Testing Negative [employer] Other CBC AUTO DIFFon 04-17-2022 BASO # 0.0 103/ul Normal 0.0-0.1 [facility] Comment on above: Performed By: #### C BC #### [facility] [address] [address] [address] Orlin Kellogg Basophils/100 WBC (Bld) 0.6 % Normal 0.2-2.0 [facility] Comment on above: Performed By: #### C BC #### [facility] [address] [address] [address] Orlin Kellogg EO # 0.1 103/ul Normal 0.0-0.7 [facility] Comment on above: Performed By: #### C BC #### [facility] [address] [place] [address] Dr. Orlin Kellogg Eosinophils/100 WBC (Bld) 1.8 % Normal 0.9-7.0 [facility] Comment on above: Performed By: #### C BC #### [facility] [address] [place] [address] Dr. Orlin Kellogg Erythrocyte distribution width (RBC) [Ratio] 13.1 % Normal 11.0-15.0 [facility] Comment on above: Performed By: #### C BC #### [facility] [address] [place] [address] Dr. Orlin Kellogg Hematocrit (Bld) [Volume fraction] 42.2 % Normal 42.0-54.0 [facility] Comment on above: Performed By: #### C BC #### [facility] [address] [address] [address] Orlin Kellogg Hemoglobin (Bld) [Mass/Vol] 13.9 g/dL Critically low 14.0-18.0 [facility] Comment on above: Performed By: #### C BC #### [facility] [address] [place] [address] Dr. Orlin Kellogg IG # 0.02 10e3/ul Normal 0.00-0.03 [facility] Comment on above: Performed By: #### C BC #### [facility] [address] [place] [address] Dr. Orlin Kellogg IG % 0.4 % Normal 0.0-0.5 [facility] Comment on above: Performed By: #### C BC #### [facility] [address] [place] [address] Dr. Orlin Kellogg LYMPH # 1.6 103/ul Normal 1.2-3.8 [facility] Comment on above: Performed By: #### C BC #### [facility] [address] [place] [address] Dr. Orlin Kellogg Lymphocytes/100 WBC (Bld) 31.6 % Normal 20.5-60.0 [facility] Comment on above: Performed By: #### C BC #### [facility] [address] [place] [address] Dr. Orlin Kellogg MANUAL DIFF REQ NO Normal [facility] Comment on above: Performed By: #### C BC #### [facility] [address] [place] [address] Dr. Orlin Kellogg MCH (RBC) [Entitic mass] 27.7 pg Normal 25.9-34.0 [facility] Comment on above: Performed By: #### C BC #### [facility] [address] [place] [address] Dr. Orlin Kellogg MCHC (RBC) [Mass/Vol] 32.9 g/dL Normal 29.9-35.2 [facility] Comment on above: Performed By: #### C BC #### [facility] [address] [place] [address] Dr. Orlin Kellogg MCV (RBC) [Entitic vol] 84.2 fL Normal 80.0-94.0 [facility] Comment on above: Performed By: #### C BC #### [facility] [address] [place] [address] Dr. Orlin Kellogg MONO # 0.3 103/ul Normal 0.3-0.8 [facility] Comment on above: Performed By: #### C BC #### [facility] [address] [place] [address] Dr. Orlin Kellogg Monocytes/100 WBC (Bld) 5.7 % Normal 1.7-12.0 [facility] Comment on above: Performed By: #### C BC #### [facility] [address] [place] [address] Dr. Orlin Kellogg NEUT # 3.0 103/ul Normal 1.4-6.5 [facility] Comment on above: Performed By: #### C BC #### [facility] [address] [place] [address] Dr. Orlin Kellogg Neutrophils/100 WBC (Bld) 59.9 % Normal 43.0-75.0 [facility] Comment on above: Performed By: #### C BC #### [facility] [address] [place] [address] Dr. Orlin Kellogg Platelet mean volume (Bld) [Entitic vol] 8.4 fL Critically low 9.5-13.5 [facility] Comment on above: Performed By: #### C BC #### [facility] [address] [place] [address] Dr. Orlin Kellogg PLT 278 103/ul Normal 150-450 [facility] Comment on above: Performed By: #### C BC #### [facility] [address] [place] [address] Dr. Orlin Kellogg RBC 5.01 106/ul Normal 4.70-6.10 [facility] Comment on above: Performed By: #### C BC #### [facility] [address] [place] [address] Dr. Orlin Kellogg WBC 4.9 103/ul Normal 4.0-11.0 [facility] Comment on above: Performed By: #### C BC #### [facility] [address] [place] [address] Dr. Orlin Kellogg FERRITINon 04-17-2022 Ferritin [Mass/Vol] 304.0 ng/mL Normal 26.0-388.0 [facility] Comment on above: Performed By: #### V ITB12, FERR #### [facility] [address] [place] [address] Dr. Orlin Kellogg PROF 14(COMP METB)on 022 Albumin [Mass/Vol] 4.4 g/dL Normal 3.4-5.0 [facility] Comment on above: Performed By: #### C MP #### [facility] [address] [address] [address] Orlin Kellogg Albumin/Globulin [Mass ratio] 1.4 {ratio} Normal [facility] Comment on above: Performed By: #### C MP #### [facility] [address] [place] [address] Dr. Orlin Kellogg ALP [Catalytic activity/Vol] 33 U/L Critically low 46-116 [facility] Comment on above: Performed By: #### C MP #### [facility] [address] [place] [address] Dr. Orlin Kellogg ALT [Catalytic activity/Vol] 50 U/L Normal 16-63 [facility] Comment on above: Performed By: #### C MP #### [facility] [address] [place] [address] Dr. Orlin Kellogg Anion gap [Moles/Vol] 16.9 mmol/L Normal [facility] Comment on above: Performed By: #### C MP #### [facility] [address] [place] [address] Dr. Orlin Kellogg AST [Catalytic activity/Vol] 33 U/L Normal 15-37 [facility] Comment on above: Performed By: #### C MP #### [facility] [address] [place] [address] Dr. Orlin Kellogg Bilirubin [Mass/Vol] 0.3 mg/dL Normal 0.2-1.0 [facility] Comment on above: Performed By: #### C MP #### [facility] [address] [place] [address] Dr. Orlin Kellogg Calcium [Mass/Vol] 10.2 mg/dL Critically high 8.5-10.1 [facility] Comment on above: Performed By: #### C MP #### [facility] [address] [place] [address] Dr. Orlin Kellogg Chloride [Moles/Vol] 105 mmol/L Normal 98-107 [facility] Comment on above: Performed By: #### C MP #### [facility] [address] [address] [address] Orlin Kellogg CO2 [Moles/Vol] 22.7 mmol/L Normal 21.0-32.0 [facility] Comment on above: Performed By: #### C MP #### [facility] [address] [address] [address] Orlin Kellogg Creatinine [Mass/Vol] 1.40 mg/dL Critically high 0.70-1.30 [facility] Comment on above: Performed By: #### C MP #### [facility] [address] [place] [address] Dr. Orlin Kellogg EGFR-AF [place] 60 mL/min/1.73m2 Normal >=60 [facility] Comment on above: Performed By: #### C MP #### [facility] [address] [address] [address] Orlin Kellogg EGFR-NON AF [place]IZ[place] 50 mL/min/1.73m2 Critically low >=60 [facility] Comment on above: Performed By: #### C MP #### [facility] [address] [place] [address] Dr. Orlin Kellogg Globulin (S) [Mass/Vol] 3.1 g/dL Normal [facility] Comment on above: Performed By: #### C MP #### [facility] [address] [address] [address] Orlin Kellogg Glucose [Mass/Vol] 100 mg/dL Normal 74-106 [facility] Comment on above: Performed By: #### C MP #### [facility] [address] [address] [address] Orlin Kellogg Potassium [Moles/Vol] 4.6 mmol/L Normal 3.5-5.1 [facility] Comment on above: Performed By: #### C MP #### [facility] [address] [address] [address] Olrin Kellogg Protein [Mass/Vol] 7.5 g/dL Normal 6.4-8.2 [facility] Comment on above: Performed By: #### C MP #### [facility] [address] [place] [address] Dr. Orlin Kellogg Sodium [Moles/Vol] 140 mmol/L Normal 136-145 [facility] Comment on above: Performed By: #### C MP #### [facility] [address] [place] [address] Dr. Orlin Kellogg Urea nitrogen [Mass/Vol] 26.0 mg/dL Critically high 7.0-18.0 [facility] Comment on above: Performed By: #### C MP #### [facility] [address] [place] [address] Dr. Orlin Kellogg Urea nitrogen/Creatinine [Mass ratio] 18.6 mg/mg Normal [facility] Comment on above: Performed By: #### C MP #### [facility] [address] [place] [address] Dr. Orlin Kellogg VITAMIN B12on 04-17-2022 Cobalamin (Vitamin B12) [Mass/Vol] 697.0 pg/mL Normal 193.0-986.0 [facility] Comment on above: Performed By: #### V ITB12, FERR #### [facility] [address] [place] [address] Dr. Orlin Kellogg CBC AUTO DIFFon 02-10-2022 BASO # 0.0 103/ul Normal 0.0-0.1 [facility] Comment on above: Performed By: #### C BC #### [facility] [address] [place] [address] Dr. Orlin Kellogg Basophils/100 WBC (Bld) 0.5 % Normal 0.2-2.0 [facility] Comment on above: Performed By: #### C BC #### [facility] [address] [place] [address] Dr. Orlin Kellogg EO # 0.1 103/ul Normal 0.0-0.7 [facility] Comment on above: Performed By: #### C BC #### [facility] [address] [place] [address] Dr. Orlin Kellogg Eosinophils/100 WBC (Bld) 2.4 % Normal 0.9-7.0 [facility] Comment on above: Performed By: #### C BC #### [facility] [address] [place] [address] Dr. Orlin Kellogg Erythrocyte distribution width (RBC) [Ratio] 13.4 % Normal 11.0-15.0 [facility] Comment on above: Performed By: #### C BC #### [facility] [address] [place] [address] Dr. Orlin Kellogg Hematocrit (Bld) [Volume fraction] 41.0 % Critically low 42.0-54.0 [facility] Comment on above: Performed By: #### C BC #### [facility] [address] [place] [address] Dr. Orlin Kellogg Hemoglobin (Bld) [Mass/Vol] 13.8 g/dL Critically low 14.0-18.0 [facility] Comment on above: Performed By: #### C BC #### [facility] [address] [place] [address] Dr. Orlin Kellogg IG # 0.01 10e3/ul Normal 0.00-0.03 [facility] Comment on above: Performed By: #### C BC #### [facility] [address] [place] [address] Dr. Orlin Kellogg IG % 0.3 % Normal 0.0-0.5 [facility] Comment on above: Performed By: #### C BC #### [facility] [address] [place] [address] Dr. Orlin Kellogg LYMPH # 1.3 103/ul Normal 1.2-3.8 [facility] Comment on above: Performed By: #### C BC #### [facility] [address] [place] [address] Dr. Orlin Kellogg Lymphocytes/100 WBC (Bld) 35.3 % Normal 20.5-60.0 [facility] Comment on above: Performed By: #### C BC #### [facility] [address] [place] [address] Dr. Orlin Kellogg MANUAL DIFF REQ NO Normal [facility] Comment on above: Performed By: #### C BC #### [facility] [address] [place] [address] Dr. Orlin Kellogg MCH (RBC) [Entitic mass] 28.3 pg Normal 25.9-34.0 [facility] Comment on above: Performed By: #### C BC #### [facility] [address] [place] [address] Dr. Orlin Kellogg MCHC (RBC) [Mass/Vol] 33.7 g/dL Normal 29.9-35.2 [facility] Comment on above: Performed By: #### C BC #### [facility] [address] [place] [address] Dr. Orlin Kellogg MCV (RBC) [Entitic vol] 84.0 fL Normal 80.0-94.0 [facility] Comment on above: Performed By: #### C BC #### [facility] [address] [place] [address] Dr. Orlin Kellogg MONO # 0.3 103/ul Normal 0.3-0.8 [facility] Comment on above: Performed By: #### C BC #### [facility] [address] [place] [address] Dr. Orlin Kellogg Monocytes/100 WBC (Bld) 9.2 % Normal 1.7-12.0 [facility] Comment on above: Performed By: #### C BC #### [facility] [address] [place] [address] Dr. Orlin Kellogg NEUT # 1.9 103/ul Normal 1.4-6.5 [facility] Comment on above: Performed By: #### C BC #### [facility] [address] [place] [address] Dr. Orlin Kellogg Neutrophils/100 WBC (Bld) 52.3 % Normal 43.0-75.0 [facility] Comment on above: Performed By: #### C BC #### [facility] [address] [place] [address] Dr. Orlin Kellogg Platelet mean volume (Bld) [Entitic vol] 8.2 fL Critically low 9.5-13.5 [facility] Comment on above: Performed By: #### C BC #### [facility] [address] [place] [address] Dr. Orlin Kellogg PLT 224 103/ul Normal 150-450 [facility] Comment on above: Performed By: #### C BC #### [facility] [address] [place] [address] Dr. Orlin Kellogg RBC 4.88 106/ul Normal 4.70-6.10 [facility] Comment on above: Performed By: #### C BC #### [facility] [address] [place] [address] Dr. Orlin Kellogg WBC 3.7 103/ul Critically low 4.0-11.0 [facility] Comment on above: Performed By: #### C BC #### [facility] [address] [place] [address] Dr. Orlin Kellogg GLYCOHEMOGLOBIN A1Con 2021 ADA RECOMMENDATION SEE BELOW Normal [facility] Comment on above: Result Comment: ADA RECOMMENDED LIMIT 4.0 - 6.0 ADA THERAPEUTIC TARGET < 7.0 ACTION SUGGESTED > 7.0 Performed By: #### A 1C #### [facility] [address] [place] [address] Dr. Orlin Kellogg Glucose [Mass/Vol] 114 mg/dL Normal [facility] Comment on above: Performed By: #### A 1C #### [facility] [address] [place] [address] Dr. Orlin Kellogg HbA1c (Bld) [Mass fraction] 5.6 % Normal 4.5-6.2 [facility] Comment on above: Performed By: #### A 1C #### [facility] [address] [place] [address] Dr. Orlin Kellogg LIPID PROFILEon 02-10-2022 CHOL-HDL RATIO NORM SEE BELOW Normal [facility] Comment on above: Result Comment: 3.3 - 4.4 LOW RISK 4.4 - 7.1 AVERAGE RISK 7.1 - 11.0 MODERATE RISK >11.0 HIGH RISK Performed By: #### L IPID, CMP #### [facility] [address] [address] [address] Orlin Kellogg Cholesterol [Mass/Vol] 191 mg/dL Normal <=200 [facility] Comment on above: Performed By: #### L IPID, CMP #### [facility] [address] [address] [address] Orlin Kellogg Cholesterol in HDL [Mass/Vol] 28 mg/dL Critically low 40-60 [facility] Comment on above: Performed By: #### L IPID, CMP #### [facility] [address] [address] [address] Orlin Kellogg Cholesterol in LDL [Mass/Vol] 112.0 mg/dL Normal [facility] Comment on above: Performed By: #### L IPID, CMP #### [facility] [address] [place] [address] Dr. Orlin Kellogg Cholesterol.total/Ch olesterol in HDL [Mass ratio] 6.8 {ratio} Normal [facility] Comment on above: Performed By: #### L IPID, CMP #### [facility] [address] [address] [address] Orlin Kellogg HDL NORMAL > or = 60 mg/dl - LO W CARDIOVASCULAR RISK <40 mg/dl - HIGH CARDIOVASCULAR RISK Normal [facility] Comment on above: Performed By: #### L IPID, CMP #### [facility] [address] [address] [address] Orlin Kellogg LDL CALC NORMAL SEE BELOW Normal [facility] Comment on above: Result Comment: <100 mg/dl OPTIMAL 100 - 129 mg/dl NEAR OR ABOVE OPTIMAL 130 - 159 mg/dl BORDERLINE HIGH 160 - 189 mg/dl HIGH >190 mg/dl VERY HIGH Performed By: #### L IPID, CMP #### [facility] [address] [address] [address] Orlin Kellogg Triglyceride [Mass/Vol] 255 mg/dL Critically high <=150 [facility] Comment on above: Performed By: #### L IPID, CMP #### [facility] [address] [address] [address] Orlin Kellogg VLDL CALC 51.0 mg/dL Normal [facility] Comment on above: Performed By: #### L IPID, CMP #### [facility] [address] [place] [address] Dr. Orlin Kellogg PROF 14(COMP METB)on 022 Albumin [Mass/Vol] 4.2 g/dL Normal 3.4-5.0 [facility] Comment on above: Performed By: #### L IPID, CMP #### [facility] [address] [address] [address] Orlin Kellogg Albumin/Globulin [Mass ratio] 1.2 {ratio} Normal [facility] Comment on above: Performed By: #### L IPID, CMP #### [facility] [address] [place] [address] Dr. Orlin Kellogg ALP [Catalytic activity/Vol] 32 U/L Critically low 46-116 [facility] Comment on above: Performed By: #### L IPID, CMP #### [facility] [address] [place] [address] Dr. Orlin Kellogg ALT [Catalytic activity/Vol] 91 U/L Critically high 16-63 [facility] Comment on above: Performed By: #### L IPID, CMP #### [facility] [address] [place] [address] Dr. Orlin Kellogg Anion gap [Moles/Vol] 13.7 mmol/L Normal [facility] Comment on above: Performed By: #### L IPID, CMP #### [facility] [address] [place] [address] Dr. Orlin Kellogg AST [Catalytic activity/Vol] 61 U/L Critically high 15-37 [facility] Comment on above: Performed By: #### L IPID, CMP #### [facility] [address] [place] [address] Dr. Orlin Kellogg Bilirubin [Mass/Vol] 0.5 mg/dL Normal 0.2-1.0 [facility] Comment on above: Performed By: #### L IPID, CMP #### [facility] [address] [address] [address] Orlin Kellogg Calcium [Mass/Vol] 10.1 mg/dL Normal 8.5-10.1 [facility] Comment on above: Performed By: #### L IPID, CMP #### [facility] [address] [address] [address] Orlin Kellogg Chloride [Moles/Vol] 105 mmol/L Normal 98-107 [facility] Comment on above: Performed By: #### L IPID, CMP #### [facility] [address] [address] [address] Orlin Kellogg CO2 [Moles/Vol] 28.0 mmol/L Normal 21.0-32.0 [facility] Comment on above: Performed By: #### L IPID, CMP #### [facility] [address] [place] [address] Dr. Orlin Kellogg Creatinine [Mass/Vol] 1.44 mg/dL Critically high 0.70-1.30 [facility] Comment on above: Performed By: #### L IPID, CMP #### [facility] [address] [address] [address] Orlin Kellogg EGFR-AF [place] 58 mL/min/1.73m2 Critically low >=60 [facility] Comment on above: Performed By: #### L IPID, CMP #### [facility] [address] [place] [address] Dr. Orlin Kellogg EGFR-NON AF [place]IZ[place] 48 mL/min/1.73m2 Critically low >=60 [facility] Comment on above: Performed By: #### L IPID, CMP #### [facility] [address] [address] [address] Orlin Kellogg Globulin (S) [Mass/Vol] 3.6 g/dL Normal [facility] Comment on above: Performed By: #### L IPID, CMP #### [facility] [address] [address] [address] Orlin Kellogg Glucose [Mass/Vol] 113 mg/dL Critically high 74-106 [facility] Comment on above: Performed By: #### L IPID, CMP #### [facility] [address] [place] [address] Dr. Orlin Kellogg Potassium [Moles/Vol] 4.7 mmol/L Normal 3.5-5.1 [facility] Comment on above: Performed By: #### L IPID, CMP #### [facility] [address] [place] [address] Dr. Orlin Kellogg Protein [Mass/Vol] 7.8 g/dL Normal 6.4-8.2 [facility] Comment on above: Performed By: #### L IPID, CMP #### [facility] [address] [place] [address] Dr. Orlin Kellogg Sodium [Moles/Vol] 142 mmol/L Normal 136-145 [facility] Comment on above: Performed By: #### L IPID, CMP #### [facility] [address] [place] [address] Dr. Orlin Klelogg Urea nitrogen [Mass/Vol] 26.0 mg/dL Critically high 7.0-18.0 [facility] Comment on above: Performed By: #### L IPID, CMP #### [facility] [address] [place] [address] Dr. Orlin Kellogg Urea nitrogen/Creatinine [Mass ratio] 18.1 mg/mg Normal [facility] Comment on above: Performed By: #### L IPID, CMP #### [facility] [address] [place] [address] Dr. Orlin Kellogg MRI KNEE LT WO CONon 021 MRI KNEE LT WO CON EXAMINATION: [...] by: OANH LEBRON Date: 2021-06-28 13:39 Normal [facility] Vital Signs Date Time Vital Sign Value Performing Clinician Facility 05-12-2025 11:38-0400 Body height 182.88 cm Talia Prieto MD Work Phone: [facility] 05-12-2025 11:38-0400 Body mass index (BMI) [Ratio] 30.4 kg/m2 Talia Prieto MD Work Phone: [facility] 05-12-2025 11:38-0400 Body weight 101.6 kg Talia Prieto MD Work Phone: [facility] 05-12-2025 11:38-0400 Diastolic blood pressure 70 mm[Hg] Talia Prieto MD Work Phone: [facility] 05-12-2025 11:38-0400 Heart rate 79 /min Talia Prieto MD Work Phone: [facility] 05-12-2025 11:38-0400 Systolic blood pressure 117 mm[Hg] Talia Prieto MD Work Phone: [facility] 07-21-2024 13:25-0500 Blood Pressure Location Koffi FONSECA [facility] 07-21-2024 13:25-0500 Diastolic blood pressure 74 mm[Hg] Koffi FONSECA [facility] 07-21-2024 13:25-0500 Heart rate 83 /min Koffi FONSECA [facility] 07-21-2024 13:25-0500 Respiratory rate 18 /min Koffi FONSECA [facility] 07-21-2024 13:25-0500 Systolic blood pressure 153 mm[Hg] Koffi FONSECA [facility] 02-05-2024 10:23-0400 Blood Pressure Location FATOU SANTAMARIA [facility] 02-05-2024 10:23-0400 Diastolic blood pressure 76 mm[Hg] FATOU ROSALIO [facility] 02-05-2024 10:23-0400 Heart rate 80 /min FATOU ROSALIO [facility] 02-05-2024 10:23-0400 Respiratory rate 19 /min FATOU ROSALIO [facility] 02-05-2024 10:23-0400 Systolic blood pressure 150 mm[Hg] FATOU ROSALIO [facility] 03-16-2023 12:30-0400 Diastolic blood pressure 81 mm[Hg] MD Talia Prieto Work Phone: [facility] 03-16-2023 12:30-0400 Heart rate 61 /min MD Talia Prieto Work Phone: [facility] 03-16-2023 12:30-0400 Respiratory rate 16 /min MD Talia Prieto Work Phone: [facility] 03-16-2023 12:30-0400 SaO2% (BldA) [Mass fraction] 98 % MD Talia Prieto Work Phone: [facility] 03-16-2023 12:30-0400 Systolic blood pressure 147 mm[Hg] MD Talia Prieto Work Phone: [facility] 03-16-2023 12:00-0400 Inhaled oxygen flow rate 5 L/min MD Talia Prieto Work Phone: [facility] 03-16-2023 10:45-0400 Body height 182.88 cm MD Talia Prieto Work Phone: [facility] 03-16-2023 10:45-0400 Body weight 108.86 kg MD Talia Prieto Work Phone: [facility] 08-19-2022 15:40-0500 Body height 182.88 cm Monica Lor Other [facility] Other 08-19-2022 15:40-0500 Body mass index (BMI) [Ratio] 33.9 kg/m2 Monica Lor Other [facility] Other 08-19-2022 15:40-0500 Body temperature 96.2 [degF] Monica Lor Other [facility] Other 08-19-2022 15:40-0500 Body weight 113.4 kg Monica Lor Other [facility] Other 08-19-2022 15:40-0500 Respiratory rate 18 /min Monica Lor Other [facility] Other 08-19-2022 15:40-0500 SaO2% (BldA) [Mass fraction] 96 % Monica Horowitz Other [facility] Other Encounters Encounter Date Encounter Type Care Provider Facility Start: 05-12-2025 End: 05-12-2025 ambulatory Talia Prieto MD Work Phone: [facility] Work Phone: Start: 05-12-2025 End: 05-12-2025 Patient encounter procedure Talia Prieto MD -[facility] Work Phone: Start: 01-19-2025 End: 01-19-2025 ambulatory GOPAL ABDI [facility] Start: 01-19-2025 End: 01-19-2025 Subsequent hospital visit by physician Talia Prieto MD Work Phone: [facility] Comment on above: Screening PSA (prost ate specific antigen) Start: 01-19-2025 End: 01-19-2025 ambulatory Koffi FONSECA Facility:[facility] Start: 01-19-2025 End: 01-19-2025 Patient encounter procedure Koffi R FONSECA [facility] Start: 01-19-2025 ambulatory Koffi JANI Facility :[facility] Start: 07-21-2024 End: 07-21-2024 ambulatory Koffi Hussein FONSECA Facility:[facility] Start: 07-21-2024 End: 07-21-2024 Patient encounter procedure Koffi FONSECA [facility] Start: 06-04-2024 End: 06-04-2024 ambulatory Not Available Start: 06-03-2024 End: 06-04-2024 Patient encounter procedure [facility] Comment on above: Bilateral hearing lo ss, unspecified hearing loss type (Primary Dx) Start: 03-11-2024 End: 03-11-2024 ambulatory Koffi R JANI Facility:[facility] Start: 03-11-2024 End: 03-11-2024 Patient encounter procedure Koffi FONSECA [facility] Start: 02-05-2024 End: 02-06-2024 ambulatory PA-C FATOU SANTAMARIA Facility:[facility] Start: 02-05-2024 End: 02-05-2024 Lab Drop off FATOU SANTAMARIA [facility] Start: 02-05-2024 End: 02-06-2024 ambulatory PA-C FATOU SANTAMARIA Facility:[facility] Start: 02-05-2024 End: 02-05-2024 Patient encounter procedure FATOU SANTAMARIA [facility] Start: 10-17-2023 ambulatory PA-C FATOU SANTAMARIA Fac ility:[facility] Start: 10-15-2023 End: 10-15-2023 ambulatory Talia Prieto Other [facility] Other Start: 10-15-2023 Telephone encounter Talia Prieto [facility] Start: 05-28-2023 End: 05-28-2023 ambulatory Talia Prieto Other [facility] Other Start: 05-28-2023 Telephone encounter Talia Prieto [facility] Start: 03-16-2023 End: 03-16-2023 ambulatory Joe Portillo Facility:[facility] Start: 03-16-2023 End: 03-16-2023 Admission to same day surgery center MD Talia Prieto Work Phone: [facility] Work Phone: Start: 03-16-2023 End: 03-16-2023 ambulatory MD Talia Prieto Work Phone: [facility] Work Phone: Start: 01-17-2023 End: 01-17-2023 ambulatory Talia Prieto Other [facility] Other Start: 01-17-2023 Telephone encounter Talia Prieto [facility] Start: 08-19-2022 End: 08-19-2022 ambulatory Monica Horowitz Other [facility] Other Start: 08-19-2022 Office outpatient ne w 20 minutes Monica Horowitz [facility] Start: 04-18-2022 Problem, abnormal examination Talia Prieto Other [facility] Other Start: 04-17-2022 End: 04-18-[address] TALIA PRIETO Facility:[facility] Start: 02-10-2022 End: 02-11-[address] TALIA PRIETO Facility:[facility] Start: 06-28-2021 End: 06-29-2021 ambulatory LATONIA ISBELL Facility:[facility] Procedures Date Procedure Procedure Detail Performing Clinician Start: 03-16-2023 Colonoscopy MD Talia Prieto Work Phone: Start: 02-10-[address] TALIA PRIETO Comment on above: Performed By: #### P [facility] #### [facility] [address] [place] [address] Dr. Orlin Kellogg Start: 08-28-2017 Laboratory test resu lt abnormal Talia Prieto Other Start: 06-29-2017 Screening for malign ant neoplasm of prostate Talia Prieto Other Colonoscopy FATOU SANTAMARIA Screening for malign ant neoplasm of prostate Talia Prieto Other Plan of Treatment Date Care Activity Detail Author Start: 04-10-2025 Influenza vaccination Flu vacc ine (Season Ended) [facility] Start: 03-04-2025 End: 03-04-2025 Patient encounter procedure 03/04/2025 2:15 PM EDT Office Visit [facility] [address] [place] [id number] Gopal Abdi [facility] [address] [place] [address] 6W pvr/ med check, psa [facility] Comment on above: 6W pvr/ med check, p sa Start: 2024 Respiratory Syncytia l Virus (RSV) or age 60 yrs+ (1 - 1-dose 75+ series) Respiratory Syncytial Virus (RSV) or age 60 yrs+ (1 - 1-dose 75+ series) [facility] Start: 12-03-2024 Annual Wellness Visi t (Medicare) Annual Wellness Visit (Medicare) [facility] Start: 05-11-2024 COVID-19 Vaccine ( season) COVID-19 Vaccine ( season) [facility] Start: 05-11-2024 Influenza vaccination Influenza Vacc ine (#1) [facility] Start: 03-16-2023 [facility] Start: 2014 Abdominal aortic aneurysm screening AAA screen [facility] Start: 2014 Pneumococcal Vaccine : 65+ Years (1 of 1 - PCV) Pneumococcal Vaccine: 65+ Years (1 of 1 - PCV) [facility] Start: 12-15-1999 Pneumococcal 50+ yea rs Vaccine (1 of 1 - PCV) Pneumococcal 50+ years Vaccine (1 of 1 - PCV) [facility] Start: 12-15-1999 Shingles vaccine (1 of 2) Shingles vaccine (1 of 2) [facility] Start: 1994 Screening for malign ant neoplasm of colon [facility] Start: 1989 Lipid panel [facility] Start: 1968 DTaP/Tdap/Td vaccine (1 - Tdap) DTaP/Tdap/Td vaccine (1 - Tdap) [facility] Start: 12-15-1967 Hepatitis C screening Hepatitis C sc reen [facility] Start: 1961 Depression Screen Depression Screen [facility] Start: 1949 Screening for malign ant neoplasm of colon [facility] Comprehensive metabo lic 2000 panel - Serum or Plasma [facility] Patient Education Colon polyps [facility] Work Phone: End: 01-19-2025 PSA screening [facility] Comment on above: 1 Occurrences starti ng 01/19/2025 until 01/19/2025 [facility] Immunizations Immunization Date Immunization Notes Care Provider Fa cility 05-30-2022 SARS-CoV-2 (COVID-19 ) [id number] Koffi FONSECA [facility] 12-22-2021 SARS-CoV-2 mRNA (opbqrlrtjfx-twxy-rketo se) vaccine Koffi FONSECA [facility] 06-16-2021 SARS-CoV-2 (COVID-19 ) mRNA BNT-162b2 vax Koffi FONSECA [facility] 11-08-2020 SARS-CoV-2 (COVID-19 ) mRNA BNT-162b2 katiex Kfofi FONSECA [facility] Comment on above: Result Comment: 2023: [id number] 10-18-2020 SARS-CoV-2 (COVID-19 ) mRNA BNT-162b2 vax Koffi FONSECA [facility] Comment on above: Result Comment: 2023: [id number] Payers Date Payer Category Payer Medicare [id number] 2023 Medicare [id number] 2023 Private Health Insurance [id number] 2023 Self-pay [id number] 1959 Medicare [id number] 1959 Private Health Insurance [id number] 1949 Unknown [id number] 2.16.84 [id number] 1949 Unknown [id number] 2.16.84 [id number] 1949 Unknown [id number] 2.16.84 [id number] 1949 Unknown [id number] 2.16.8 [id number] 1949 Unknown [id number] 2.16.8 [id number] 1949 Unknown [id number] 2.16.84 [id number] 1949 Unknown [id number] 2.16.8 [id number] 1949 Unknown [id number] 2.16.8 [id number] 1949 Unknown [id number] 2.16.8 [id number] 1949 Unknown [id number] 2.16.8 [id number] Medicare [id number] 2.1 [id number] Unknown [id number] 2.16.8 [id number] Social History Date Type Detail Facility Unknown if ever smoked [facility] Other Start: 01-19-2025 Sex Assigned At F [facility] Start: 03-16-2023 Tobacco smoking status NHIS Never smoked tobacco (finding) [facility] Start: 1950 Sex Assigned At Male F [facility] Start: 02-05-2024 End: 05-06-2024 Tobacco smoking status Ex-smoker (finding) [facility] Tobacco smoking status Never [facility] Tobacco smoking status NHIS Tobacco smoking consumption unknown [facility] Start: 1950 Sex assigned at Not on file N [facility] Start: 09-10-2000 End: 09-10-1961 History of tobacco use Current smoker [employer] Start: 09-10-2000 End: 09-10-1961 History of tobacco use Cigarette Smoker [employer] Start: 01-19-2025 Tobacco use and exposure Smokeless tobacco non-user [employer] Start: 01-19-2025 Alcoholic beverage intake Ex-drinker (finding) [employer] Start: 01-19-2025 History of Social function [employer] Start: 11-06-2024 Sex Male (finding) [employer] Sexual Orientation [facility] NEGATED: Highlighted rowStart: NINF History of tobacco use Passive smoker [employer] Goals Date Patient Goal Desired Activity /State Functional Status Date Assessment Result Facility 07-21-2024 Functional Status N/A [facility] 02-05-2024 Functional Status N/A [facility] Clinical Notes 12-26-2013 to 07-21-2024 Sangeeta Steiner MA - 06/03/2024 1:45 PM EDT Note Date & Type Note Facility 07-21-2024 Hospital Discharge instructions Follow Up Care 07/21/2024 14:46:03 With:JANI ARREDONDO, Koffi Savage, URL Address: [facility] [address] [place] [address]- [phone] When: Unknown [facility] 07-21-2024 Hospital Discharge instructions Patient Education 07/21/2024 14:43:38 Benign Prostatic Hyperplasia Benign Prostatic Hyperplasia Benign prostatic hyperplasia (BPH) is an enlarged prostate gland that is caused by the normal aging process. The prostate may get bigger as a man gets older. The condition is not caused by cancer. The prostate is a walnut-sized gland that is involved in the production of semen. It is located in front of the rectum and below the bladder. The bladder stores urine. The urethra carries stored urine out of the body. An enlarged prostate can press on the urethra. This can make it harder to pass urine. The buildup of urine in the bladder can cause infection. Back pressure and infection may progress to bladder damage and kidney (renal) failure. What are the causes? This condition is part of the normal aging process. However, not all men develop problems from this condition. If the prostate enlarges away from the urethra, urine flow will not be blocked. If it enlarges toward the urethra and compresses it, there will be problems passing urine. What increases the risk? This condition is more likely to develop in men older than 50 years. What are the signs or symptoms? Symptoms of this condition include: Getting up often during the night to urinate. Needing to urinate frequently during the day. Difficulty starting urine flow. Decrease in size and strength of your urine stream. Leaking (dribbling) after urinating. Inability to pass urine. This needs immediate treatment. Inability to completely empty your bladder. Pain when you pass urine. This is more common if there is also an infection. Urinary tract infection (UTI). How is this diagnosed? This condition is diagnosed based on your medical history, a physical exam, and your symptoms. Tests will also be done, such as: A post-void bladder scan. This measures any amount of urine that may remain in your bladder after you finish urinating. A digital rectal exam. In a rectal exam, your health care provider checks your prostate by putting a lubricated, gloved finger into your rectum to feel the back of your prostate gland. This exam detects the size of your gland and any abnormal lumps or growths. An exam of your urine (urinalysis). A prostate specific antigen (PSA) screening. This is a blood test used to screen for prostate cancer. An ultrasound. This test uses sound waves to electronically produce a picture of your prostate gland. Your health care provider may refer you to a specialist in kidney and prostate diseases (urologist). How is this treated? Once symptoms begin, your health care provider will monitor your condition (active surveillance or watchful waiting). Treatment for this condition will depend on the severity of your condition. Treatment may include: Observation and yearly exams. This may be the only treatment needed if your condition and symptoms are mild. Medicines to relieve your symptoms, including: ?Medicines to shrink the prostate. ?Medicines to relax the muscle of the prostate. Surgery in severe cases. Surgery may include: ?Prostatectomy. In this procedure, the prostate tissue is removed completely through an open incision or with a laparoscope or robotics. ?Transurethral resection of the prostate (TURP). In this procedure, a tool is inserted through the opening at the tip of the penis (urethra). It is used to cut away tissue of the inner core of the prostate. The pieces are removed through the same opening of the penis. This removes the blockage. ?Transurethral incision (TUIP). In this procedure, small cuts are made in the prostate. This lessens the prostate's pressure on the urethra. ?Transurethral microwave thermotherapy (TUMT). This procedure uses microwaves to create heat. The heat destroys and removes a small amount of prostate tissue. ?Transurethral needle ablation (TUNA). This procedure uses radio frequencies to destroy and remove a small amount of prostate tissue. ?Interstitial laser coagulation (ILC). This procedure uses a laser to destroy and remove a small amount of prostate tissue. ?Transurethral electrovaporization (TUVP). This procedure uses electrodes to destroy and remove a small amount of prostate tissue. ?Prostatic urethral lift. This procedure inserts an implant to push the lobes of the prostate away from the urethra. Follow these instructions at home: Take fljt-vyp-pweqeos and prescription medicines only as told by your health care provider. Monitor your symptoms for any changes. Contact your health care provider with any changes. Avoid drinking large amounts of liquid before going to bed or out in public. Avoid or reduce how much caffeine or alcohol you drink. Give yourself time when you urinate. Keep all follow-up visits. This is important. Contact a health care provider if: You have unexplained back pain. Your symptoms do not get better with treatment. You develop side effects from the medicine you are taking. Your urine becomes very dark or has a bad smell. Your lower abdomen becomes distended and you have trouble passing urine. Get help right away if: You have a fever or chills. You suddenly cannot urinate. You feel light-headed or very dizzy, or you faint. There are large amounts of blood or clots in your urine. Your urinary problems become hard to manage. You develop moderate to severe low back or flank pain. The flank is the side of your body between the ribs and the hip. These symptoms may be an emergency. Get help right away. Call 911. Do not wait to see if the symptoms will go away. Do not drive yourself to the hospital. Summary Benign prostatic hyperplasia (BPH) is an enlarged prostate that is caused by the normal aging process. It is not caused by cancer. An enlarged prostate can press on the urethra. This can make it hard to pass urine. This condition is more likely to develop in men older than 50 years. Get help right away if you suddenly cannot urinate. This information is not intended to replace advice given to you by your health care provider. Make sure you discuss any questions you have with your health care provider. Document Revised: 03/15/2022 Document Reviewed: 03/15/2022 [employer] Patient Education 2023 [employer]. Follow Up Care 03/11/2024 15:59:47 With:JANI ARREDONDO, Koffi Savage, URL Address: [facility] [address] [place] [address] [phone] When: Unknown Comments:6 mos w/ PSA [facility] 07-21-2024 Note Patient Education Urology Benign Prostatic Hyperplasia Benign prostatic hyperplasia (BPH) is an enlarged prostate gland that is caused by the normal aging process. The prostate may get bigger as a man gets older. The condition is not caused by cancer. The prostate is a walnut-sized gland that is involved in the production of semen. It is located in front of the rectum and below the bladder. The bladder stores urine. The urethra carries stored urine out of the body. An enlarged prostate can press on the urethra. This can make it harder to pass urine. The buildup of urine in the bladder can cause infection. Back pressure and infection may progress to bladder damage and kidney (renal) failure. What are the causes? This condition is part of the normal aging process. However, not all men develop problems from this condition. If the prostate enlarges away from the urethra, urine flow will not be blocked. If it enlarges toward the urethra and compresses it, there will be problems passing urine. What increases the risk? This condition is more likely to develop in men older than 50 years. What are the signs or symptoms? Symptoms of this condition include: ??? Getting up often during the night to urinate. ??? Needing to urinate frequently during the day. ??? Difficulty starting urine flow. ??? Decrease in size and strength of your urine stream. ??? Leaking (dribbling) after urinating. ??? Inability to pass urine. This needs immediate treatment. ??? Inability to completely empty your bladder. ??? Pain when you pass urine. This is more common if there is also an infection. ??? Urinary tract infection (UTI). How is this diagnosed? This condition is diagnosed based on your medical history, a physical exam, and your symptoms. Tests will also be done, such as: ??? A post-void bladder scan. This measures any amount of urine that may remain in your bladder after you finish urinating. ??? A digital rectal exam. In a rectal exam, your health care provider checks your prostate by putting a lubricated, gloved finger into your rectum to feel the back of your prostate gland. This exam detects the size of your gland and any abnormal lumps or growths. ??? An exam of your urine (urinalysis). ??? A prostate specific antigen (PSA) screening. This is a blood test used to screen for prostate cancer. ??? An ultrasound. This test uses sound waves to electronically produce a picture of your prostate gland. Your health care provider may refer you to a specialist in kidney and prostate diseases (urologist). How is this treated? Once symptoms begin, your health care provider will monitor your condition (active surveillance or watchful waiting). Treatment for this condition will depend on the severity of your condition. Treatment may include: ??? Observation and yearly exams. This may be the only treatment needed if your condition and symptoms are mild. ??? Medicines to relieve your symptoms, including: ? Medicines to shrink the prostate. ? Medicines to relax the muscle of the prostate. ??? Surgery in severe cases. Surgery may include: ? Prostatectomy. In this procedure, the prostate tissue is removed completely through an open incision or with a laparoscope or robotics. ? Transurethral resection of the prostate (TURP). In this procedure, a tool is inserted through the opening at the tip of the penis (urethra). It is used to cut away tissue of the inner core of the prostate. The pieces are removed through the same opening of the penis. This removes the blockage. ? Transurethral incision (TUIP). In this procedure, small cuts are made in the prostate. This lessens the prostate's pressure on the urethra. ? Transurethral microwave thermotherapy (TUMT). This procedure uses microwaves to create heat. The heat destroys and removes a small amount of prostate tissue. ? Transurethral needle ablation (TUNA). This procedure uses radio frequencies to destroy and remove a small amount of prostate tissue. ? Interstitial laser coagulation (ILC). This procedure uses a laser to destroy and remove a small amount of prostate tissue. ? Transurethral electrovaporization (TUVP). This procedure uses electrodes to destroy and remove a small amount of prostate tissue. ? Prostatic urethral lift. This procedure inserts an implant to push the lobes of the prostate away from the urethra. Follow these instructions at home: ??? Take fbgg-iqz-tzkobie and prescription medicines only as told by your health care provider. ??? Monitor your symptoms for any changes. Contact your health care provider with any changes. ??? Avoid drinking large amounts of liquid before going to bed or out in public. ??? Avoid or reduce how much caffeine or alcohol you drink. ??? Give yourself time when you urinate. ??? Keep all follow-up visits. This is important. Contact a health care provider if: ??? You have unexplained back pain. ??? Your symptoms do not get (more content not included)... [facility] 06-03-2024 History of Present illness Narrative Patient picked up repaired left hearing aid. Patient paid $100 for new chart collector wire documented in this encounter [facility] 03-11-2024 Hospital Discharge instructions Patient Education 03/11/2024 15:56:22 EU - [...] degrees. Follow Up Care 02/05/2024 12:36:26 With:Koffi FONSECA Address: [address] [place], [place] [id number] Business (1) When:07/12/2024 15:56:09 [facility] 03-11-2024 Note Patient Education Custom Cystoscopy ? [...] you have a fever over 100 degrees. [facility] 02-05-[address] [...] Contact Information ROSALIO AUSTIN, FATOU Jaimes, URL [address] [facility] [place] [address] [phone] Additional Instructions: sched cysto Patient Education Cystoscopy Documentation recorded by the amanda Persaud accurately reflects the services(s) I performed and decisions made by me. Authenticated by Fatou Santamaria PA-C on 02/05/2024 11:23:52. IMandy, personally scribed for Fatou Santamaria PA-C on [...] Protein Urine Dipstick: Negative (02/05/24 10:31:00) Specific [place] Urine Dipstick: 1.020 (02/05/24 10:31:00) Urine Appearance Urine Dipstick: Clear (01/09 (more content not included)... [facility] Comment on above: Result Comment: Elec tronically Signed By: FATOU SANTAMARIA PA-C\.br\Date and Time Signed: 02/05/24 11:24 EDT\.br\Electronically Co-Signed By: Mandy Persaud\.br\Date and Time Co-Signed: 02/05/24 11:18 EDT 02-05-2024 Hospital Discharge instructions Patient Education 02/05/2024 11:15:43 Cystoscopy Cystoscopy [...] including vitamins, herbs, eye drops, creams, and yzsf-eii-fxywcnh medicines. Any problems you or family members [...] provider tells you to take them. Taking geza-tjw-kbkwpdx medicines, vitamins, herbs, and supplements. Tests You [...] Follow these instructions at home: Medicines Take kyoi-gtc-wwdlucf and prescription medicines only as told by [...] provider. Document Revised: 05/10/2022 Document Reviewed: 04/08/2021 [employer] Patient Education 2022 [employer]. Follow Up Care 10/18/2023 09:33:39 With:FATOU SANTAMARIA PA-C, URL Address: [address] [place] [address] [phone] When: Unknown [facility] 02-05-2024 Note Urology Cystoscopy Cystoscopy is a [...] including vitamins, herbs, eye drops, creams, and rkms-ufm-yystizg medicines. ? Any problems you or family [...] tells you to take them. ? Taking abtb-pvj-nmbuqef medicines, vitamins, herbs, and supplements. Tests You [...] these instructions at home: Medicines ? Take kcqw-viy-gswyrww and prescription medicines only as told by [...] the department th (more content not included)... [facility] 03-16-2023 Procedure note [facility] 08-19-2022 Evaluation note Encounter Date Diagnosis Assessment Notes Aug, Cough (ICD-10 - R05.9) Aug, Influenza A (ICD-10 - J10.1) Influenza: adult home care material was printed Drink plenty of fluids, get plenty of rest. Take Tylenol or Motrin as needed for aches pains or fevers. You must quarantine until Sunday. Follow-up with your family physician in 2 to 3 days if no improve [facility] Other 12-01-2021 History general Narrative - Reported* [...] Status : Active, Hospitalization History See Above [facility] Other 04-18-2014 Evaluation note* Diagnosis Onset Date Resolution Status Admit Date Essential (primary) hypertension December 26, 2013 acute May 12, 2025 11:19am Hyperlipidemia, unspecified May 25, 2016 acute May 122024 11:19am [facility] Work Phone: Evaluation + Plan note Future Appointments Appointment Date:02/26/2024 08:00:00 AM Scheduled Provider: Location:[facility] Appointment Type:Urology CALL PAT FT Appointment Date:03/11/2024 03:30:00 PM Scheduled Provider: Location:[facility] Appointment Type:Urology FT [facility] evaluation + Plan note Future Appointments Appointment Date:07/21/2024 01:15:00 PM Scheduled Provider:Koffi FONSECA MD Location:[facility] App[facility] Future Appointments Appointment Date:01/19/2025 11:30:00 AM Scheduled Provider:Koffi FONSECA MD Location:[facility] Appointment Type:URO Office Visit Diagnostic Tests Pending * PSA Screen, Total 07/21/[address] [facility] evaluation noteNo InformationNort [employer] Other evalufyswn noteNo assessment information available [facility] Work Phone: evaluation note* Diagnosis Bilateral hearing loss, unspecified hearing loss type- Primary documented [facility] encounter [facility] Diagnosis Screening PSA (prostate specific antigen) Special screening for malignant neoplasm of prostate documented in this encounter [facility] Author Joe Portillo [facility] March 16, 2023 11:44am Note Date/Time March 16, 2023 11:44 am [facility] [address] [place] [address] Gastroenterology H&P Signed Patient: Haider Bledsoe MR#: [id number] : 1950 Acct:[id number] Age/Sex: 72 / M Adm Date: 3 Loc: Room: Type: [facility] Attending Dr: Joe Portillo MD Copies to: [...] signed by Joe Portillo MD> 03/16/23 1144 [facility] Work Phone: History general Narrative - Reported* Type Description Date Medical History hypertension Surgical History colonoscopy Hospitalization History See Above [facility] Other Hospital course Narrative No data available for this section [facility] Hospital Discharge instructions Additional Instructions DISCHARGE [...] NOT operate machinery such as power tools, [employer] mowers, Zmanda blowers, sewing machines, etc. for 24 hours. [...] years. -Follow up with PCP. -Office number [phone].[facility] Work Phone: Hospital Discharge instructions No data available for this section [facility] No data available for this section [facility] reason for referral (narrative)No reason for referral [facility] Work Phone: Summary Purpose Family History Relationship Condition Age at Onset Recorded Date/T alfreda Not Specified Hypertension Unknown daughter Disorder of thyroid Unknown Relationship Condition Age at Onset Recorded Date/T alfreda Not Specified Hypertension Unknown daughter Disorder of thyroid Unknown father Malignant neoplasm Unknown Unknown mother Unknown Malignant neoplasm Unknown Diabetes mellitus Unknown Advance Directives Advance Directive Response Recorded Date/ Time Advance Directives No August 11:13am Chief Complaint and Reason for Visit Chief Complaint Hx Colon Polyps Chief Complaint Admit Date wellness May 12, 2025 11:19am Reason for Visit Admit Date Essential (primary) hypertension Septemb er 2024 11:19am Hyperlipidemia, unspecified May 11:19am Additional Source Comments (unrecognized sect ion and content) No Status Records FoundNo Status Records FoundNo Status Records FoundNo Status Records FoundNo Status Records FoundNo Status Records FoundNo Status Records Found INFORMATION SOURCE (unrecogn ized section and content) DATE CREATED AUTHOR 04/19/2022 [facility] DATE CREATED AUTHOR AUTHOR'S ORGANIZ ATION 03/23/[address] [facility] DATE CREATED AUTHOR AUTHOR'S ORGANIZ ATION 02/06/2024 Byrne Demarco [facility] DATE CREATED AUTHOR AUTHOR'S ORGANIZ ATION 06/06/2024 [facility] DATE CREATED AUTHOR AUTHOR'S ORGANIZ ATION 01/20/2025 Byrne Bleckley [facility] DATE CREATED AUTHOR AUTHOR'S ORGANIZ ATION 01/22/2025 [facility] REASON FOR VISIT (unrecogniz ed section and content) COUGH, CONGESTIONRefillrefil llabs Care Teams (unrecognized sec tion and content) Team Status: Active Member Role Status Dates Talia Prieto MD Primary Care Provider Active Team Status: Inactive Member Role Status Dates Talia Prieto MD Primary Care Provider Active Joe Portillo MD Attending Provider Active Trim Carpenter Relationship Specialty Start Date End Date Talia Prieto MD [address] [place] [id number] PCP - General Family Medicine 12/03/24 Team Status: Inactive Member Role Status Dates Talia Prieto MD Primary Care Provider Active Start: May 12, 2025 End: May 12, 2025 Talia Prieto MD Attending Provider Active St art: May 12, 2025 End: May 12, 2025 Goals (unrecognized section and content) Goals may be documented in a n alternate section FOR RECORDS PERTAINING TO PATIENTS WHO ARE [...] BE BASED ON THE PRIMARY CLINICAL RECORDS. [facility]. provides no warranty or guarantee of the accuracy or completeness of information in this document.
[2025-05-15 16:10] LABS: Hematocrit 39.9 % (42.0-54.0); Hemoglobin 13.3 g/dL (14.0-18.0); Immature Granulocytes Abs Auto 0.01 10^3/uL (0.00-0.03); Immature Granulocytes Pct Auto 0.2 % (0.0-0.5); Lymphocytes Absolute Auto 1.4 10^3/uL (1.2-3.8); Mean Corpuscular HGB Conc 33.3 g/dL (29.9-35.2); Mean Corpuscular Hemoglobin 28.9 pg (25.9-34.0); Mean Corpuscular Volume 86.7 fL (80.0-94.0); Platelet Count 257 10^3/uL (150-450); Red Blood Count 4.60 10^6/uL (4.70-6.10); White Blood Count 4.8 10^3/uL (4.0-11.0)
[2025-05-15 16:25] LABS: Alanine Aminotransferase 48 U/L (16-63); Albumin Globulin Ratio 1.4; Albumin Level 4.6 g/dL (3.4-5.0); Alkaline Phosphatase 29 U/L (46-116); Anion Gap 10.5; Aspartate Amino Transferase 27 U/L (15-37); Blood Urea Nitrogen 26.0 mg/dL (7.0-18.0); Calcium 10.0 mg/dL (8.5-10.1); Carbon Dioxide 25.7 mmol/L (21.0-32.0); Chloride 105 mmol/L (98-107); Cholesterol 168 mg/dL (<=200); Estimated GFR (African America 49 (>=60 mL/min/1.73m^2); Estimated GFR (Non-African Ame 40 (>=60 mL/min/1.73m^2); Globulin 3.2 g/dL; Glucose 96 mg/dL (74-106); HDL Cholesterol 29 mg/dL (40-60); Potassium 4.2 mmol/L (3.5-5.1); Sodium 137 mmol/L (136-145); Total Protein 7.8 g/dL (6.4-8.2); Triglycerides 138 mg/dL (<=150); VLDL CHOLESTEROL 27.6 mg/dL
== END 2025-05-15 15:18 | disposition home or self-care (01) ==
PROVIDERS: PCP Family Medicine; Visit Provider Family Medicine
DX: E78.2 Mixed hyperlipidemia (principal); I10 Essential (primary) hypertension
CPT/HCPCS: 36415; 80053; 80061; 82043; 82570; 85025